=== PATIENT | male | born 1960 | race American Indian/Alaskan Native ===

== ENCOUNTER 2016-12-26 09:43 | Inpatient (IN) | payer OTHER ==
[2016-12-26 10:20] LABS: Bilirubin,Urine NEG (Negative); Blood,Urine NEG (Negative); Ketones,Urine 80 mg/dL (Negative); Leukocyte Esterase,Urine NEG (Negative); Mucus,Urine FEW /HPF; Nitrite,Urine NEG (Negative); Urobilinogen,Urine < 2.0 mg/dL (<2.0)
[2016-12-26 10:39] LABS: Basophils % (Auto) 0.8 % (0.0-1.8); Eosinophils % (Auto) 0.4 % (0.0-4.3); Hematocrit 47.3 % (35.5-45.6); Hemoglobin 15.7 gm/dl (11.8-15.2); Mean Corpuscular HGB Conc 33 % (32-34); Mean Corpuscular Hemoglobin 34 pg (28-32); Mean Corpuscular Volume 102 fl (84-94); Platelet Count 177 K/mm3 (140-440); Red Blood Count 4.66 M/mm3 (3.65-5.03); Red Cell Distribution Width 15.4 % (13.2-15.2); White Blood Count 9.3 K/mm3 (4.5-11.0)
[2016-12-26 11:07] LABS: BUN/Creatinine Ratio 16.15; Calcium 9.6 mg/dL (8.4-10.2); Chloride 85.1 mmol/L (98-107)
[2016-12-26 11:29] LABS: Potassium 5.9 mmol/L (3.6-5.0)
--- NOTE | 2016-12-26 11:38 | Emergency Department Report ---
ED General Adult HPI - General Chief complaint: Weakness Stated complaint: DIABETIC SYMPTOMS DIZZY Time Seen by Provider: 12/26/16 11:37 Source: patient Mode of arrival: Ambulatory Limitations: No Limitations - History of Present Illness Initial comments: The patient states that he was admitted to [facility] in [facility] for DKA about 2 weeks ago which is when he first found out he was a type I diabetic. He claims he was incarcerated at that time and transfer to the hospital. When he returned to present he stated he was not continued on his insulin and was released. He also claims that he was never given a prescription for penicillin. However and despite knowing that he was a type I diabetic for the last greater than one week he has not pursued getting a prescription for insulin. He states that he "felt fine for a while". However after some time he started to feel weak and developed the polys. Yesterday he began vomiting. He has not vomited recently (today). He states that he is no longer nauseated. -: week(s) Consistency: intermittent Improves with: none Worsens with: none Associated Symptoms: nausea/vomiting Treatments Prior to Arrival: none - Related Data Allergies Allergy/AdvReac Type Severity Reaction Status Date / Time Tetracyclines Allergy Swelling Verified 12/26/16 09:54 ED Review of Systems ROS: Stated complaint: DIABETIC SYMPTOMS DIZZY Other details as noted in HPI Constitutional: weakness. denies: chills, fever Eyes: denies: eye pain, eye discharge, vision change ENT: denies: ear pain, throat pain Respiratory: denies: cough, shortness of breath, wheezing Cardiovascular: denies: chest pain, palpitations Endocrine: increased hunger, increased thirst, increased urine Gastrointestinal: nausea, vomiting. denies: abdominal pain, diarrhea Genitourinary: denies: urgency, dysuria Musculoskeletal: denies: back pain, joint swelling, arthralgia Skin: denies: rash, lesions Neurological: denies: headache, weakness, paresthesias Psychiatric: denies: anxiety, depression Hematological/Lymphatic: denies: easy bleeding, easy bruising ED Past Medical Hx - Past Medical History Previous Medical History?: Yes Hx Diabetes: Yes - Surgical History Past Surgical History?: Yes Additional Surgical History: Bone marrow biopsy three weeks ago; no follow up for results - Social History Smoking Status: Current Every Day Smoker Substance Use Type: Alcohol ED Physical Exam - General Limitations: No Limitations General appearance: alert, in no apparent distress - Head Head exam: Present: atraumatic, normocephalic - Eye Eye exam: Present: normal appearance - ENT ENT exam: Present: mucous membranes dry (somewhat but not severely) - Neck Neck exam: Present: normal inspection. Absent: tenderness, meningismus - Respiratory Respiratory exam: Present: normal lung sounds bilaterally. Absent: respiratory distress - Cardiovascular Cardiovascular Exam: Present: regular rate, normal rhythm. Absent: systolic murmur, diastolic murmur, rubs, gallop - GI/Abdominal GI/Abdominal exam: Present: soft, normal bowel sounds. Absent: distended, tenderness, guarding, rebound, rigid - Rectal Rectal exam: Present: deferred - Extremities Exam Extremities exam: Present: normal inspection - Back Exam Back exam: Present: normal inspection - Neurological Exam Neurological exam: Present: alert, oriented X3, CN II-XII intact. Absent: motor sensory deficit - Psychiatric Psychiatric exam: Present: normal affect, normal mood - Skin Skin exam: Present: warm, dry, intact, normal color. Absent: rash ED Course Vital Signs 12/26/16 09:48 Temperature 98.0 F Pulse Rate 105 H Respiratory 16 Rate Blood Pressure 110/82 O2 Sat by Pulse 100 Oximetry - Reevaluation(s) Reevaluation #1: The patient looks remarkably better than his metabolic picture would generally suggests. He was given IV insulin first since the drip takes a while to obtain. He was given a bolus of 2 L normal saline. An insulin drip protocol was ordered. He was admitted to the hospitalist service by Dr. Guillen in stable condition. Of note is that the patient's sugar is not very elevated considering his acidosis and hyperkalemia. He denies using any sort of insulin or hypoglycemic agent. 12/26/16 14:01 ED Medical Decision Making - Lab Data Result diagrams: 12/26/16 10:17 12/26/16 11:45 Laboratory Results - last 24 hr 12/26/16 12/26/16 12/26/16 10:04 10:17 10:17 WBC 9.3 RBC 4.66 Hgb 15.7 H Hct 47.3 H MCV 102 H MCH 34 H MCHC 33 RDW 15.4 H Plt Count 177 Lymph % (Auto) 15.8 [facility] % (Auto) 8.6 H Eos % (Auto) 0.4 Baso % (Auto) 0.8 Lymph # 1.5 [facility] [place] [facility] # 0.8 Eos # 0.0 Baso # 0.1 Seg Neutrophils % 74.4 H Seg Neutrophils # 6.9 Sodium 124 L Potassium 5.9 H Chloride 85.1 L Carbon Dioxide 6 L* Anion Gap 39 BUN 21 H Creatinine 1.3 Estimated GFR 57 BUN/Creatinine Ratio 16.15 Glucose 419 H Calcium 9.6 Urine Color Yellow Urine Turbidity Clear Urine pH 5.0 Ur Specific [place] 1.024 Urine Protein 30 mg/dl Urine Glucose (UA) >=500 Urine Ketones 80 Urine Blood Neg Urine Nitrite Neg Urine Bilirubin Neg Urine Urobilinogen < 2.0 Ur Leukocyte Esterase Neg Urine WBC (Auto) 1.0 Urine RBC (Auto) 2.0 Urine Mucus Few Laboratory Results - last 24 hr 12/26/16 12/26/16 12/26/16 10:04 10:17 10:17 WBC 9.3 RBC 4.66 Hgb 15.7 H Hct 47.3 H MCV 102 H MCH 34 H MCHC 33 RDW 15.4 H Plt Count 177 Lymph % (Auto) 15.8 [facility] [place] % (Auto) 8.6 H Eos % (Auto) 0.4 Baso % (Auto) 0.8 Lymph # 1.5 [facility] [place] [facility] # 0.8 Eos # 0.0 Baso # 0.1 Seg Neutrophils % 74.4 H Seg Neutrophils # 6.9 Sodium 124 L Potassium 5.9 H Chloride 85.1 L Carbon Dioxide 6 L* Anion Gap 39 BUN 21 H Creatinine 1.3 Estimated GFR 57 BUN/Creatinine Ratio 16.15 Glucose 419 H POC Glucose Hemoglobin A1c Calcium 9.6 Urine Color Yellow Urine Turbidity Clear Urine pH 5.0 Ur Specific [place] 1.024 Urine Protein 30 mg/dl Urine Glucose (UA) >=500 Urine Ketones 80 Urine Blood Neg Urine Nitrite Neg Urine Bilirubin Neg Urine Urobilinogen < 2.0 Ur Leukocyte Esterase Neg Urine WBC (Auto) 1.0 Urine RBC (Auto) 2.0 Urine Mucus Few 12/26/16 12/26/16 10:17 13:59 WBC RBC Hgb Hct MCV MCH MCHC RDW Plt Count Lymph % (Auto) [facility] [place] [facility] % (Auto) Eos % (Auto) Baso % (Auto) Lymph # [facility] # Eos # Baso # Seg Neutrophils % Seg Neutrophils # Sodium Potassium Chloride Carbon Dioxide Anion Gap BUN Creatinine Estimated GFR BUN/Creatinine Ratio Glucose POC Glucose 363 H Hemoglobin A1c 9.8 H Calcium Urine Color Urine Turbidity Urine pH Ur Specific [place] Urine Protein Urine Glucose (UA) Urine Ketones Urine Blood Urine Nitrite Urine Bilirubin Urine Urobilinogen Ur Leukocyte Esterase Urine WBC (Auto) Urine RBC (Auto) Urine Mucus - EKG Data -: EKG Interpreted by Me EKG shows normal: sinus rhythm Rate: normal - EKG Data Interpretation: other - Radiology Data interpreted by me: Chest x-ray shows signs of COPD but no acute process Critical Care Time: Yes Critical care time in (mins) excluding proc time.: 45 Critical care attestation.: If time is entered above; I have spent that time in minutes in the direct care of this critically ill patient, excluding procedure time. ED Disposition Clinical Impression: Hyperkalemia DKA, type 1 Qualifiers: Diabetes mellitus complication detail: without coma Qualified Code(s): E10.10 - Type 1 diabetes mellitus with ketoacidosis without coma Disposition: DC09 OP ADMIT IP TO THIS HOSP Is pt being admited?: Yes Does the pt Need Aspirin: Yes Condition: Stable
[2016-12-26] MEDS ORDERED: NACL 0.9% 1000 ML 1,000 ML IV ONE ×3 (11:39→11:59)
[2016-12-26] MEDS ORDERED: D50W (25GM) IV PRN ×2 (11:39→11:59)
--- NOTE | 2016-12-26 11:58 | History and Physical Report ---
History of Present Illness Date of examination: 12/26/16 Chief complaint: Weakness and dizziness History of present illness: 56-year-old -[place] man with past medical history significant for diabetes mellitus that was recently diagnosed presented to the emergency department complaining of weakness and dizziness for the last 2 days. He is also complaining of headache. A month ago patient was diagnosed with type 1 diabetes mellitus in [place] while he was incarcerated and he was treated with insulin and discharged from the hospital reveals no history of prescription. Since discharge patient was complaining of polydipsia and polyuria but for the last 2 days the patient become very weak, dizzy and started to have headache since yesterday. Patient denied fever or chills, cough , chest pain, dysuria. Per the patient he said he was diagnosed with type 1 diabetes mellitus so he is 56 years old. REVIEW OF SYSTEMS: GENERAL: no weight change, + fatigue, no fever HEAD: no head ache EYES: no blurry vision, no acute visual loss EARS: no hearing loss, no discharge, no earache NOSE: no stuffiness, no sneezing, no discharge MOUTH, THROAT AND NECK: no bleeding gums, no sore throat, no swollen neck CARDIAC: no palpitations, no dyspnea on exertion, no orthopnea, no PND, no edema , no chest pain RESPIRATORY: no shortness of breath, no wheeze, no cough, no sputum, no hemoptysis, no asthma GI: no decreased appetite, no nausea, no vomiting, no dysphagia, no diarrhea, no constipation, no abdominal pain URINARY: no change in frequency, no urgency, no polyuria, no hematuria, no incontinence MUSCULOSKELETAL: no muscle weakness, no pain, no joint stiffness NEUROLOGIC: no loss of sensation/numbness, no tingling, no tremors, no weakness/ paralysis HEMATOLOGIC: no anemia, no easy bruising SKIN: no rashes ENDOCRINE: no heat/cold intolerance, + polyuria, + polydipsia, no thyroid problems, + diabetes PSYCHIATRIC: no anxiety, no depression, no suicidal ideations Past History Past Medical History: diabetes Past Surgical History: No surgical history Social history: smoking (Half PPD), alcohol abuse (6 PPD), full code. denies: prescription drug abuse, IV drug use Family history: no significant family history Medications and Allergies Allergies Allergy/AdvReac Type Severity Reaction Status Date / Time Tetracyclines Allergy Swelling Verified 12/26/16 09:54 Active Meds: Active Medications Dextrose (D50w (25gm)) 0 ml IV ONCE PRN PRN Reason: Hypoglycemia Sodium Chloride (Nacl 0.9% 1000 Ml) 1,000 mls @ 999 mls/hr IV BOLUS ONE Stop: 12/26/16 12:39 Insulin Human Regular 100 (units/ Sodium Chloride) 100 mls @ 1 mls/hr IV TITR ESTHER; 1 UNITS/HR PRN Reason: Protocol Exam - Physical Exam Narrative exam: Not in cardiopulmonary distress. The patient is cachectic. Vital signs as documented. Head exam is unremarkable. Dry tongue and buccal mucosa No scleral icterus . Neck is without jugular venous distension, thyromegaly, or carotid bruits. Lungs are clear to auscultation. Cardiac exam reveals regular rate and Rhythm. First and second heart sounds normal. No murmurs, rubs or gallops. Abdominal exam reveals normal bowel sounds, no masses, no organomegaly and no aortic enlargement. Extremities are nonedematous and both femoral and pedal pulses are normal. [employer]: Alert and oriented 3. No focal weakness. - Constitutional Vitals: Temp Pulse Resp BP Pulse Ox 98.0 F 105 H 16 110/82 100 12/26/16 09:48 12/26/16 09:48 12/26/16 09:48 12/26/16 09:48 12/26/16 09:48 Results - Labs CBC & Chem 7: 12/26/16 10:17 12/26/16 10:17 Labs: Laboratory Last Values WBC 9.3 K/mm3 (4.5-11.0) 12/26/16 10:17 RBC 4.66 M/mm3 (3.65-5.03) 12/26/16 10:17 Hgb 15.7 gm/dl (11.8-15.2) H 12/26/16 10:17 Hct 47.3 % (35.5-45.6) H 12/26/16 10:17 MCV 102 fl (84-94) H 12/26/16 10:17 MCH 34 pg (28-32) H 12/26/16 10:17 MCHC 33 % (32-34) 12/26/16 10:17 RDW 15.4 % (13.2-15.2) H 12/26/16 10:17 Plt Count 177 K/mm3 (140-440) 12/26/16 10:17 Lymph % (Auto) 15.8 % (13.4-35.0) 12/26/16 10:17 [place] % (Auto) 8.6 % (0.0-7.3) H 12/26/16 10:17 Eos % (Auto) 0.4 % (0.0-4.3) 12/26/16 10:17 Baso % (Auto) 0.8 % (0.0-1.8) 12/26/16 10:17 Lymph # 1.5 K/mm3 (1.2-5.4) 12/26/16 10:17 [place] # 0.8 K/mm3 (0.0-0.8) 12/26/16 10:17 Eos # 0.0 K/mm3 (0.0-0.4) 12/26/16 10:17 Baso # 0.1 K/mm3 (0.0-0.1) 12/26/16 10:17 Seg Neutrophils % 74.4 % (40.0-70.0) H 12/26/16 10:17 Seg Neutrophils # 6.9 K/mm3 (1.8-7.7) 12/26/16 10:17 Sodium 124 mmol/L (137-145) L 12/26/16 10:17 Potassium 5.9 mmol/L (3.6-5.0) H 12/26/16 10:17 Chloride 85.1 mmol/L (98-107) L 12/26/16 10:17 Carbon Dioxide 6 mmol/L (22-30) L* 12/26/16 10:17 Anion Gap 39 mmol/L 12/26/16 10:17 BUN 21 mg/dL (9-20) H 12/26/16 10:17 Creatinine 1.3 mg/dL (0.8-1.5) 12/26/16 10:17 Estimated GFR 57 ml/min 12/26/16 10:17 BUN/Creatinine Ratio 16.15 % 12/26/16 10:17 Glucose 419 mg/dL (75-100) H 12/26/16 10:17 Calcium 9.6 mg/dL (8.4-10.2) 12/26/16 10:17 Urine Color Yellow (Yellow) 12/26/16 10:04 Urine Turbidity Clear (Clear) 12/26/16 10:04 Urine pH 5.0 (5.0-7.0) 12/26/16 10:04 Ur Specific [place] 1.024 (1.003-1.030) 12/26/16 10:04 Urine Protein 30 mg/dl mg/dL (Negative) 12/26/16 10:04 Urine Glucose (UA) >=500 mg/dL (Negative) 12/26/16 10:04 Urine Ketones 80 mg/dL (Negative) 12/26/16 10:04 Urine Blood Neg (Negative) 12/26/16 10:04 Urine Nitrite Neg (Negative) 12/26/16 10:04 Urine Bilirubin Neg (Negative) 12/26/16 10:04 Urine Urobilinogen < 2.0 mg/dL (<2.0) 12/26/16 10:04 Ur Leukocyte Esterase Neg (Negative) 12/26/16 10:04 Urine WBC (Auto) 1.0 /HPF (0.0-6.0) 12/26/16 10:04 Urine RBC (Auto) 2.0 /HPF (0.0-6.0) 12/26/16 10:04 Urine Mucus Few /HPF 12/26/16 10:04 Assessment and Plan Assessment and plan: DKA Metabolic acidosis Uncontrolled diabetes Medication noncompliance Malnutrition - Patient will be treated according to DKA protocol - We will give sodium bicarbonate - Dietary consult - [employer] consulted DVT prophylaxis - Lovenox Disposition -Admit to ICU Advance Directives: Yes (Full code) VTE prophylaxis?: Chemical Plan of care discussed with patient/family: Yes
[2016-12-26] MEDS ORDERED: NovoLIN R 100 UNITS in NACL 0.9% 99 ML IV SCH (12:00)
--- NOTE | 2016-12-26 12:00 | XRay Report ---
AP CHEST: HISTORY: Hypertension The lungs are hyperinflated consistent with underlying emphysematous changes. No evidence for infiltrate, pleural effusion or pneumothorax. Normal heart and mediastinal structures. Normal bony thorax. IMPRESSION: Mild emphysematous changes.
[2016-12-26 14:18] LABS: INR 0.93 (0.87-1.13)
[2016-12-26 14:19] LABS: Partial Thromboplastin Time 30.3 Sec. (24.2-36.6)
[2016-12-26 14:25] LABS: Anion Gap 41 mmol/L; BUN/Creatinine Ratio 16.92; Blood Urea Nitrogen 22 mg/dL (9-20); Carbon Dioxide 12 mmol/L (22-30); Chloride 84.3 mmol/L (98-107); Glucose 414 mg/dL (75-100); Potassium 4.8 mmol/L (3.6-5.0); Sodium 132 mmol/L (137-145)
[2016-12-26] MEDS: NovoLIN R 100 UNITS in NACL 0.9% 99 ML IV SCH ×2 (14:30→23:29)
[2016-12-26 14:38] LABS: Creatine Kinase MB 1.6 ng/mL (0.0-4.0)
[2016-12-26] MEDS ORDERED: BABY ASPIRIN ONE (14:39)
[2016-12-26 14:40] LABS: Alanine Aminotransferase 11 units/L (7-56); Albumin 4.9 g/dL (3.9-5); Albumin/Globulin Ratio 1.3 %; Alkaline Phosphatase 133 units/L (35-129); Creatine Kinase 31 units/L (55-170); Total Protein 8.6 g/dL (6.3-8.2)
[2016-12-26 14:45] LABS: Bilirubin,Direct < 0.2 mg/dL (0-0.2)
[2016-12-26] MEDS: BABY ASPIRIN PO SCH (15:18)
[2016-12-26 16:20] LABS: Anion Gap 31 mmol/L; BUN/Creatinine Ratio 17.27; Blood Urea Nitrogen 19 mg/dL (9-20); Calcium 7.9 mg/dL (8.4-10.2); Carbon Dioxide 11 mmol/L (22-30); Chloride 97.6 mmol/L (98-107); Glucose 239 mg/dL (75-100); Potassium 4.5 mmol/L (3.6-5.0); Sodium 135 mmol/L (137-145)
[2016-12-26] MEDS ORDERED: TYLENOL PO PRN (18:16)
[2016-12-26] MEDS ORDERED: D5/0.45NS 1,000 ML IV SCH (19:00)
[2016-12-26 20:57] LABS: Anion Gap 23 mmol/L; BUN/Creatinine Ratio 18.75; Blood Urea Nitrogen 15 mg/dL (9-20); Calcium 8.1 mg/dL (8.4-10.2); Carbon Dioxide 14 mmol/L (22-30); Chloride 97.8 mmol/L (98-107); Glucose 181 mg/dL (75-100); Potassium 3.9 mmol/L (3.6-5.0); Sodium 131 mmol/L (137-145)
[2016-12-26] MEDS: D5W/0.45% NACL/KCL 20 MEQ 20 MEQ/1,000 ML BAG IV SCH (21:34)
[2016-12-27] MEDS: NovoLIN R 100 UNITS in NACL 0.9% 99 ML IV SCH ×2 (00:53→05:51)
--- NOTE | 2016-12-27 03:10 | Admit Criteria Form ---
Admission Criteria Documentation: HYPONATREMIA; HYPERNATREMIA; HYPOKALEMIA; HYPERKALEMIA; HYPOCALCEMIA; HYPERCALCEMIA Clinical Indications for Inpatient Care (Place 'X' for any and all applicable criteria): Ongoing inpatient care may be indicated for ANY ONE of the following [G](1)(2)(3 )(5): [ ]I. Hyponatremia with ANY ONE of the following: [ ]a) Sodium less than 130 mEq/L (mmol/L) (new) (6)(22) [ ]b) Sodium less than 135 mEq/L (mmol/L) with ANY ONE of the following: [ ]i) Severe medical etiology requiring inpatient management (eg, heart failure, hypovolemia) [ ]ii) Altered mental status [ ]iii) Seizures [ ]II. Hypernatremia with ANY ONE of the following: [ ]a) Sodium greater than 155 mEq/L (mmol/L) [ ]b) Sodium greater than 150 mEq/L (mmol/L) with ANY ONE of the following: [ ] i) Altered mental status [ ]ii) Seizures [ ]iii) Severe medical etiology (eg, hypovolemia, diabetes insipidus) [ ]iv) Severe weakness [ ]v) Severe medical etiology (eg, hemolysis, infection, drug overdose) [ ]III. Hypokalemia with ANY ONE of the following: [ ]a) Potassium less than 2.5 mEq/L (mmol/L) despite outpatient and emergency treatment [ ]b) Potassium less than 3.0 mEq/L (mmol/L) with ANY ONE of the following: [ ]i) Weakness [ ]ii) Cardiac abnormality (eg, arrhythmia, conduction disturbance) [ ]iii) Cardiac ischemia [ ]iv) Ileus [ ]v) Ongoing medical cause requiring inpatient management. ( e.g., acute renal wasting, SIADH) [ ]vi) Other severe symptoms [ X] IV. Hyperkalemia with ANY ONE of the following: [ ]a) Potassium greater than 6.5 mEq/L (mmol/L) [X ]b) Potassium greater than 5 mEq/L (mmol/L) with ANY ONE of the following: [ ]i) Severe ECG findings [H] [ ]ii) Acute worsening of renal failure (creatinine greater than 2.5 mg/dL (221 micromoles/L) or significant elevation for age and size) [X]iii) Severe weakness [ ]iv) Severe medical etiology (eg, hemolysis, infection, drug overdose) [ ] V. Hypocalcemia with ANY ONE of the following: [ ]a) Calcium less than 7 mg/dL (1.75 mmol/L) despite outpatient and emergency treatment(19) [ ]b) Calcium less than 8 mg/dL (2 mmol/L) with significant symptoms or findings; examples include: [ ]i) Cardiac abnormality (eg, arrhythmia or conduction disturbance) [ ]ii) Altered mental status [ ]iii) Seizures [ ]iv) Breathing difficulty [ ]v) Muscle spasms [ ]. Hypercalcemia with ANY ONE of the following: [ ]a) Calcium greater than 14 mg/dL (3.5 mmol/L) [ ]b) Calcium greater than 12 mg/dL (3 mmol/L) with ANY ONE of the following: [ ]i) Significant dehydration or hypovolemia as indicated by ANY ONE of the following(2): [ ]1. Clinically significant dehydration as indicated by ANY ONE of the following: [ ]A. Acute loss of weight from baseline (5% of body weight in adults, 9% in pediatric patients) [ ]B. Hemodynamic instability [ ]C. Acute renal failure [ ]D. Serum sodium greater than 150 mEq/L (mmol/L) [ ]2) Dehydration that is persistent indicated by ALL of the following: [ ]A. Oral rehydration therapy not tolerated or insufficient to adequately correct dehydration [ ]B. Appropriate intravenous treatment (eg, fluids ) does not readily correct dehydration ie, after 12 to 24 hours of treatment) [ ]ii) Significant symptoms or findings; examples include: [ ]1) Altered mental status [ ]2) Cardiac abnormality (eg, arrhythmia, conduction disturbance) [ ]3) Cardiac abnormality (eg, arrhythmia, conduction disturbance) The original [employer] content created by [employer] has been revised. The portions of the content which have been revised are identified through the use of italic text or in bold, and [facility] has neither reviewed nor approved the modified material. All other unmodified content is copyright [facility] Please see references footnoted in the original [facility] edition 2016 Admission Criteria Met: Yes
[2016-12-27 04:27] LABS: Hematocrit 36.9 % (35.5-45.6); Hemoglobin 12.7 gm/dl (11.8-15.2); Mean Corpuscular HGB Conc 34 % (32-34); Mean Corpuscular Hemoglobin 33 pg (28-32); Mean Corpuscular Volume 97 fl (84-94); Platelet Count 146 K/mm3 (140-440); Red Blood Count 3.83 M/mm3 (3.65-5.03); Red Cell Distribution Width 15.1 % (13.2-15.2); White Blood Count 6.9 K/mm3 (4.5-11.0)
[2016-12-27 04:45] LABS: Anion Gap 21 mmol/L; BUN/Creatinine Ratio 12.85; Blood Urea Nitrogen 9 mg/dL (9-20); Calcium 8.5 mg/dL (8.4-10.2); Carbon Dioxide 16 mmol/L (22-30); Chloride 97.4 mmol/L (98-107); Glucose 139 mg/dL (75-100); Potassium 3.8 mmol/L (3.6-5.0); Sodium 131 mmol/L (137-145)
[2016-12-27] MEDS: D5W/0.45% NACL/KCL 20 MEQ 20 MEQ/1,000 ML BAG IV SCH ×3 (06:28→19:00)
[2016-12-27 08:44] LABS: Anisocytosis Few; Basophils % (Manual) 0 % (0.0-1.8); Blastocytes % (Manual) 0 %; Diff Status Complete; Eosinophils % (Manual) 0 % (0.0-4.3); Hypochromasia Few; Large Platelets Few
[2016-12-27] MEDS ORDERED: NACL 0.9% 1000 ML 1,000 ML IV ONE (10:12)
[2016-12-27] MEDS: LOVENOX SUB-Q SCH (10:25)
[2016-12-27] MEDS: BABY ASPIRIN PO SCH (10:25)
[2016-12-27] MEDS ORDERED: MIRALAX 3350 PO PRN (11:55)
[2016-12-27 12:45] LABS: Anion Gap 22 mmol/L; Blood Urea Nitrogen 8 mg/dL (9-20); Calcium 8.8 mg/dL (8.4-10.2); Carbon Dioxide 17 mmol/L (22-30); Chloride 101.7 mmol/L (98-107); Glucose 132 mg/dL (75-100); Potassium 3.6 mmol/L (3.6-5.0); Sodium 137 mmol/L (137-145)
--- NOTE | 2016-12-27 14:19 | Consultation ---
History of Present Illness Consult date: 12/27/16 Requesting physician: JARROD MOE Reason for consult: other (DKA) History of present illness: PULMONARY/CCM CONSULT NOTE (Full dictation # [id number]) Please see dictated notes for full details Past History Past Medical History: diabetes Past Surgical History: No surgical history Social history: smoking (Half PPD), alcohol abuse (6 PPD), full code. denies: prescription drug abuse, IV drug use Family history: no significant family history Medications and Allergies Allergies Allergy/AdvReac Type Severity Reaction Status Date / Time Tetracyclines Allergy Swelling Verified 12/26/16 09:54 Home Medications Medication Instructions Recorded Confirmed Last Taken Type No Known Home Medications [No 12/26/16 12/26/16 Unknown History Reported Home Medications] Active Meds: Active Medications Acetaminophen (Tylenol) 650 mg PO Q6H PRN PRN Reason: Pain, Mild (1-3) Aspirin (Baby Aspirin) 81 mg PO QDAY ESTHER Last Admin: 12/27/16 10:25 Dose: 81 mg Dextrose (D50w (25gm)) 0 ml IV ONCE PRN PRN Reason: Hypoglycemia Dextrose (D50w (25gm)) 0 ml IV PRN PRN PRN Reason: Hypoglycemia Docusate Sodium (Colace) 100 mg PO BID ESTHER Enoxaparin Sodium (Lovenox) 40 mg SUB-Q QDAY ESTHER Last Admin: 12/27/16 10:25 Dose: 40 mg Insulin Human Regular 100 (units/ Sodium Chloride) 100 mls @ 1 mls/hr IV TITR ESTHER; 1 UNITS/HR PRN Reason: Protocol Last Titration: 12/27/16 14:12 Dose: 5 units/hr, 5 mls/hr Potassium Chloride/Dextrose/Sod Cl (D5w/0.45% Nacl/Kcl 20 Meq) 20 meq in 1,000 mls @ 125 mls/hr IV DIRECT ESTHER Last Admin: 12/27/16 10:24 Dose: 125 mls/hr Insulin Human Regular 100 (units/ Sodium Chloride) 100 mls @ 1 mls/hr IV TITR ESTHER; 1 UNITS/HR PRN Reason: Protocol Dextrose/Sodium Chloride (D5/0.45ns) 1,000 mls @ 150 mls/hr IV DIRECT ESTHER Last Admin: 12/26/16 18:40 Dose: 150 mls/hr Polyethylene Glycol (Miralax 3350) 17 gm PO QDAY PRN PRN Reason: Constipation Sodium Bicarbonate (Sodium Bicarbonate) 650 mg PO BID ESTHER Physical Examination Vital signs: Vital Signs Temp Pulse Resp BP Pulse Ox 98.0 F 105 H 16 110/82 100 12/26/16 09:48 12/26/16 09:48 12/26/16 09:48 12/26/16 09:48 12/26/16 09:48 Results - Laboratory Findings CBC and BMP: 12/27/16 04:11 12/27/16 12:00 PT/INR, D-dimer PT 12.4 Sec. (12.2-14.9) 12/26/16 13:22 INR 0.93 (0.87-1.13) 12/26/16 13:22 Abnormal lab findings: Abnormal Labs 12/26/16 12/26/16 12/26/16 13:59 15:27 15:50 MCV MCH Monocytes % (Manual) Monocytes # (Manual) Sodium 135 L Chloride 97.6 L Carbon Dioxide 11 L BUN Creatinine Glucose 239 H POC Glucose 363 H 301 H Calcium 7.9 L D 12/26/16 12/26/16 12/26/16 16:40 17:34 18:43 MCV MCH Monocytes % (Manual) Monocytes # (Manual) Sodium Chloride Carbon Dioxide BUN Creatinine Glucose POC Glucose 188 H 176 H 196 H Calcium 12/26/16 12/26/16 12/26/16 19:50 20:21 20:58 MCV MCH Monocytes % (Manual) Monocytes # (Manual) Sodium 131 L Chloride 97.8 L Carbon Dioxide 14 L BUN Creatinine Glucose 181 H POC Glucose 187 H 169 H Calcium 8.1 L 12/26/16 12/26/16 12/27/16 22:10 23:24 00:45 MCV MCH Monocytes % (Manual) Monocytes # (Manual) Sodium Chloride Carbon Dioxide BUN Creatinine Glucose POC Glucose 146 H 153 H 136 H Calcium 12/27/16 12/27/16 12/27/16 02:00 04:11 04:11 MCV 97 H MCH 33 H Monocytes % (Manual) 15.0 H Monocytes # (Manual) 1.0 H Sodium 131 L Chloride 97.4 L Carbon Dioxide 16 L BUN Creatinine 0.7 L Glucose 139 H POC Glucose 138 H Calcium 12/27/16 12/27/16 12/27/16 05:48 07:21 08:47 MCV MCH Monocytes % (Manual) Monocytes # (Manual) Sodium Chloride Carbon Dioxide BUN Creatinine Glucose POC Glucose 209 H 189 H 176 H Calcium 12/27/16 12/27/16 12/27/16 09:55 12:00 12:06 MCV MCH Monocytes % (Manual) Monocytes # (Manual) Sodium Chloride Carbon Dioxide 17 L BUN 8 L Creatinine 0.5 L Glucose 132 H POC Glucose 117 H 121 H Calcium 12/27/16 12/27/16 13:16 13:52 MCV MCH Monocytes % (Manual) Monocytes # (Manual) Sodium Chloride Carbon Dioxide BUN Creatinine Glucose POC Glucose 218 H 218 H Calcium
[2016-12-27] MEDS: SODIUM BICARBONATE PO SCH ×2 (15:05→22:09)
[2016-12-27 16:47] LABS: Anion Gap 19 mmol/L; Blood Urea Nitrogen 6 mg/dL (9-20); Calcium 8.8 mg/dL (8.4-10.2); Carbon Dioxide 16 mmol/L (22-30); Chloride 102.6 mmol/L (98-107); Glucose 123 mg/dL (75-100); Potassium 3.8 mmol/L (3.6-5.0); Sodium 134 mmol/L (137-145)
[2016-12-27 19:39] LABS: Bilirubin,Urine NEG (Negative); Blood,Urine NEG (Negative); Ketones,Urine TR mg/dL (Negative); Leukocyte Esterase,Urine NEG (Negative); Nitrite,Urine NEG (Negative); Protein,Urine <15 mg/dL mg/dL (Negative); Urobilinogen,Urine < 2.0 mg/dL (<2.0)
[2016-12-27 19:42] LABS: RBC,Urine < 1.0 /HPF (0.0-6.0); WBC,Urine < 1.0 /HPF (0.0-6.0)
[2016-12-27 20:31] LABS: Anion Gap 22 mmol/L; Blood Urea Nitrogen 6 mg/dL (9-20); Calcium 8.9 mg/dL (8.4-10.2); Carbon Dioxide 15 mmol/L (22-30); Chloride 101.9 mmol/L (98-107); Glucose 118 mg/dL (75-100); Potassium 4.4 mmol/L (3.6-5.0); Sodium 134 mmol/L (137-145)
[2016-12-27] MEDS: COLACE PO SCH (22:10)
[2016-12-27] MEDS ORDERED: PEPCID ONE (22:12)
--- NOTE | 2016-12-27 23:34 | Progress Note ---
Assessment and Plan Assessment and plan: 56-year-old -[place] man with past medical history significant for diabetes mellitus that was recently diagnosed presented to the emergency department complaining of weakness and dizziness for the last 2 days. He is also complaining of headache. A month ago patient was diagnosed with type 1 diabetes mellitus in [place] while he was incarcerated and he was treated with insulin and discharged from the hospital reveals no history of prescription. Since discharge patient was complaining of polydipsia and polyuria but for the last 2 days the patient become very weak, dizzy and started to have headache since yesterday. Patient denied fever or chills, cough , chest pain, dysuria. Per the patient he said he was diagnosed with type 1 diabetes mellitus so he is 56 years old. DKA Metabolic acidosis Uncontrolled diabetes Medication noncompliance Malnutrition Plan: Continue DKA protocol Start on PO Sodium Bicarbonate Dietary Consult for education. SERIAL LABS Discussed in detail, Diabetic management with patient and daughter Transfer to Medical floor once anion Gap closes. DVT prophylaxis The high probability of a clinically significant, sudden or life threatening deterioration of the [endocrine] system(s) required my full and direct attention , intervention and personal management. The aggregate critical care time was [35 ] minutes. This time is in addition to time spent performing reported procedures but includes the following [x] Data Review and interpretation [x] Patient assessment and monitoring of vital signs [x] Documentation [x] Medication orders and management History Interval history: Patient seen and examined in no acute distress, requesting food to eat. Hospitalist Physical - Physical exam Narrative exam: VITAL SIGNS: Reviewed. GENERAL: The patient appeared Normally developed. Vital signs as documented. HEAD: No signs of head trauma. Markedly cachectic with temporal wasting EYES: Pupils are equal. Extraocular motions intact. EARS: Hearing grossly intact. MOUTH: Oropharynx is normal. NECK: No adenopathy, no JVD. CHEST: Chest with clear breath sounds bilaterally. No wheezes, rales, or rhonchi. CARDIAC: Regular rate and rhythm. S1 and S2, without murmurs, gallops, or rubs. VASCULAR: No Edema. Peripheral pulses normal and equal in all extremities. ABDOMEN: Soft, without detectable tenderness. No sign of distention. No rebound or guarding, and no masses palpated. Bowel Sounds normal. MUSCULOSKELETAL: Good range of motion of all major joints. Extremities without clubbing, cyanosis or edema. NEUROLOGIC EXAM: Alert and oriented x 3. No focal sensory or strength deficits. Speech normal. Follows commands. PSYCHIATRIC: Mood normal. SKIN: No rash or lesions. - Constitutional Vitals: Temp Pulse Resp BP Pulse Ox 98.4 F 64 21 123/86 100 12/27/16 15:43 12/27/16 21:20 12/27/16 21:20 12/27/16 21:20 12/27/16 21:20 Results - Labs CBC & Chem 7: 12/28/16 04:14 12/28/16 04:14 Labs: Laboratory Last Values WBC 6.9 K/mm3 (4.5-11.0) 12/27/16 04:11 RBC 3.83 M/mm3 (3.65-5.03) 12/27/16 04:11 Hgb 12.7 gm/dl (11.8-15.2) D 12/27/16 04:11 Hct 36.9 % (35.5-45.6) D 12/27/16 04:11 MCV 97 fl (84-94) H 12/27/16 04:11 MCH 33 pg (28-32) H 12/27/16 04:11 MCHC 34 % (32-34) 12/27/16 04:11 RDW 15.1 % (13.2-15.2) 12/27/16 04:11 Plt Count 146 K/mm3 (140-440) 12/27/16 04:11 Lymph % (Auto) 15.8 % (13.4-35.0) 12/26/16 10:17 Colbert % (Auto) [employer] 12/27/16 04:11 Eos % (Auto) 0.4 % (0.0-4.3) 12/26/16 10:17 Baso % (Auto) 0.8 % (0.0-1.8) 12/26/16 10:17 Lymph # 1.5 K/mm3 (1.2-5.4) 12/26/16 10:17 Colbert # 0.8 K/mm3 (0.0-0.8) 12/26/16 10:17 Eos # 0.0 K/mm3 (0.0-0.4) 12/26/16 10:17 Baso # 0.1 K/mm3 (0.0-0.1) 12/26/16 10:17 Add Manual Diff Complete 12/27/16 04:11 Total Counted 100 12/27/16 04:11 Seg Neutrophils % 74.4 % (40.0-70.0) H 12/26/16 10:17 Seg Neuts % (Manual) 55.0 % (40.0-70.0) 12/27/16 04:11 Band Neutrophils % 8.0 % 12/27/16 04:11 Lymphocytes % (Manual) 22.0 % (13.4-35.0) 12/27/16 04:11 Reactive Lymphs % (Man) 0 % 12/27/16 04:11 Monocytes % (Manual) 15.0 % (0.0-7.3) H 12/27/16 04:11 Eosinophils % (Manual) 0 % (0.0-4.3) 12/27/16 04:11 Basophils % (Manual) 0 % (0.0-1.8) 12/27/16 04:11 Metamyelocytes % 0 % 12/27/16 04:11 Myelocytes % 0 % 12/27/16 04:11 Promyelocytes % 0 % 12/27/16 04:11 Blast Cells % 0 % 12/27/16 04:11 Nucleated RBC % Not Reportable 12/27/16 04:11 Seg Neutrophils # 6.9 K/mm3 (1.8-7.7) 12/26/16 10:17 Seg Neutrophils # Man 3.8 K/mm3 (1.8-7.7) 12/27/16 04:11 Band Neutrophils # 0.6 K/mm3 12/27/16 04:11 Lymphocytes # (Manual) 1.5 K/mm3 (1.2-5.4) 12/27/16 04:11 Abs React Lymphs (Man) 0.0 K/mm3 12/27/16 04:11 Monocytes # (Manual) 1.0 K/mm3 (0.0-0.8) H 12/27/16 04:11 Eosinophils # (Manual) 0.0 K/mm3 (0.0-0.4) 12/27/16 04:11 Basophils # (Manual) 0.0 K/mm3 (0.0-0.1) 12/27/16 04:11 Metamyelocytes # 0.0 K/mm3 12/27/16 04:11 Myelocytes # 0.0 K/mm3 12/27/16 04:11 Promyelocytes # 0.0 K/mm3 12/27/16 04:11 Blast Cells # 0.0 K/mm3 12/27/16 04:11 WBC Morphology Not Reportable 12/27/16 04:11 Hypersegmented Neuts Not Reportable 12/27/16 04:11 Hyposegmented Neuts Not Reportable 12/27/16 04:11 Hypogranular Neuts Not Reportable 12/27/16 04:11 Smudge Cells Not Reportable 12/27/16 04:11 Toxic Granulation Not Reportable 12/27/16 04:11 Toxic Vacuolation Not Reportable 12/27/16 04:11 Dohle Bodies Not Reportable 12/27/16 04:11 Pelger-Huet Anomaly Not Reportable 12/27/16 04:11 Chinyere Rods Not Reportable 12/27/16 04:11 Platelet Estimate Appears normal 12/27/16 04:11 Clumped Platelets Not Reportable 12/27/16 04:11 Plt Clumps, EDTA Not Reportable 12/27/16 04:11 Large Platelets Few 12/27/16 04:11 Giant Platelets Not Reportable 12/27/16 04:11 Platelet Satelliting Not Reportable 12/27/16 04:11 Plt Morphology Comment Not Reportable 12/27/16 04:11 RBC Morphology Not Reportable 12/27/16 04:11 Dimorphic RBCs Not Reportable 12/27/16 04:11 Polychromasia Not Reportable 12/27/16 04:11 Hypochromasia Few 12/27/16 04:11 Poikilocytosis Not Reportable 12/27/16 04:11 Anisocytosis Few 12/27/16 04:11 Microcytosis Not Reportable 12/27/16 04:11 Macrocytosis Not Reportable 12/27/16 04:11 Spherocytes Not Reportable 12/27/16 04:11 Pappenheimer Bodies Not Reportable 12/27/16 04:11 Sickle Cells Not Reportable 12/27/16 04:11 Target Cells Not Reportable 12/27/16 04:11 Tear Drop Cells Not Reportable 12/27/16 04:11 Ovalocytes Not Reportable 12/27/16 04:11 Helmet Cells Not Reportable 12/27/16 04:11 [place] Bodies Not Reportable 12/27/16 04:11 [place] Rings Not Reportable 12/27/16 04:11 Fredrick Cells Not Reportable 12/27/16 04:11 Bite Cells Not Reportable 12/27/16 04:11 Crenated Cell Not Reportable 12/27/16 04:11 Elliptocytes Not Reportable 12/27/16 04:11 Acanthocytes (Spur) Not Reportable 12/27/16 04:11 Rouleaux Not Reportable 12/27/16 04:11 Hemoglobin C Crystals Not Reportable 12/27/16 04:11 Schistocytes Not Reportable 12/27/16 04:11 Malaria parasites Not Reportable 12/27/16 04:11 Jerry Bodies Not Reportable 12/27/16 04:11 Hem Pathologist Commnt No 12/27/16 04:11 PT 12.4 Sec. (12.2-14.9) 12/26/16 13:22 INR 0.93 (0.87-1.13) 12/26/16 13:22 APTT 30.3 Sec. (24.2-36.6) 12/26/16 13:22 Sodium 134 mmol/L (137-145) L 12/27/16 19:54 Potassium 4.4 mmol/L (3.6-5.0) 12/27/16 19:54 Chloride 101.9 mmol/L (98-107) 12/27/16 19:54 Carbon Dioxide 15 mmol/L (22-30) L 12/27/16 19:54 Anion Gap 22 mmol/L 12/27/16 19:54 BUN 6 mg/dL (9-20) L 12/27/16 19:54 Creatinine 0.5 mg/dL (0.8-1.5) L 12/27/16 19:54 Estimated GFR > 60 ml/min 12/27/16 19:54 BUN/Creatinine Ratio 12.00 % 12/27/16 19:54 Glucose 118 mg/dL (75-100) H 12/27/16 19:54 POC Glucose 181 (70-105) H 12/27/16 21:01 Hemoglobin A1c 9.8 % (4-6) H 12/26/16 10:17 Calcium 8.9 mg/dL (8.4-10.2) 12/27/16 19:54 Total Bilirubin 0.50 mg/dL (0.1-1.2) 12/26/16 13:22 Direct Bilirubin < 0.2 mg/dL (0-0.2) 12/26/16 13:22 AST 13 units/L (5-40) 12/26/16 13:22 ALT 11 units/L (7-56) 12/26/16 13:22 Alkaline Phosphatase 133 units/L (35-129) H 12/26/16 13:22 Total Creatine Kinase 31 units/L (55-170) L 12/26/16 13:22 CK-MB (CK-2) 1.6 ng/mL (0.0-4.0) 12/26/16 13:22 CK-MB (CK-2) Rel Index 5.1 (0-4) H 12/26/16 13:22 Troponin T < 0.010 ng/mL (0.00-0.029) 12/26/16 13:22 NT-Pro-B Natriuret Pep 41.61 pg/mL (0-900) 12/26/16 13:22 Total Protein 8.6 g/dL (6.3-8.2) H 12/26/16 13:22 Albumin 4.9 g/dL (3.9-5) 12/26/16 13:22 Albumin/Globulin Ratio 1.3 % 12/26/16 13:22 Urine Color Straw (Yellow) 12/27/16 19:00 Urine Turbidity Clear (Clear) 12/27/16 19:00 Urine pH 6.0 (5.0-7.0) 12/27/16 19:00 Ur Specific [place] 1.002 (1.003-1.030) L 12/27/16 19:00 Urine Protein <15 mg/dl mg/dL (Negative) 12/27/16 19:00 Urine Glucose (UA) 50 mg/dL (Negative) 12/27/16 19:00 Urine Ketones Tr mg/dL (Negative) 12/27/16 19:00 Urine Blood Neg (Negative) 12/27/16 19:00 Urine Nitrite Neg (Negative) 12/27/16 19:00 Urine Bilirubin Neg (Negative) 12/27/16 19:00 Urine Urobilinogen < 2.0 mg/dL (<2.0) 12/27/16 19:00 Ur Leukocyte Esterase Neg (Negative) 12/27/16 19:00 Urine WBC (Auto) < 1.0 /HPF (0.0-6.0) 12/27/16 19:00 Urine RBC (Auto) < 1.0 /HPF (0.0-6.0) 12/27/16 19:00 Urine Mucus Few /HPF 12/26/16 10:04
[2016-12-28] MEDS: NovoLIN R 100 UNITS in NACL 0.9% 99 ML IV SCH (00:09)
[2016-12-28] MEDS: D5W/0.45% NACL/KCL 20 MEQ 20 MEQ/1,000 ML BAG IV SCH (02:25)
[2016-12-28 05:19] LABS: Hematocrit 33.9 % (35.5-45.6); Hemoglobin 11.6 gm/dl (11.8-15.2); Mean Corpuscular HGB Conc 34 % (32-34); Mean Corpuscular Hemoglobin 34 pg (28-32); Mean Corpuscular Volume 99 fl (84-94); Platelet Count 145 K/mm3 (140-440); Red Blood Count 3.44 M/mm3 (3.65-5.03); White Blood Count 6.5 K/mm3 (4.5-11.0)
--- NOTE | 2016-12-28 05:29 | Consultation ---
CONSULTING PHYSICIAN: Quinn Guillen MD REASON FOR CONSULTATION: Diabetic ketoacidosis, need for IV insulin therapy and ICU observation. CHIEF COMPLAINT AND HISTORY OF PRESENT ILLNESS: The patient is a 56-year-old -Portuguese male with past medical history according to him significant for a diagnosis of diabetes, which he got about 2 weeks ago in [place]. He states that he had been incarcerated at that time, transferred to the hospital. He was ultimately released and he had not been continued on his insulin. He started feeling funny again, started having nausea, vomiting, feeling weak. He developed polydipsia and polyuria, came into the Emergency Room, was found to be in DKA and started on IV insulin drip. When I stopped by to see him in the intensive care unit, he was resting peacefully in bed, hungry and wanting to eat something, but remained on the IV insulin drip. He denied any history of chest pains. He denied any palpitations prior to this presentation. He denies any history of known heart disease. He admits to 10+ pack year tobacco smoking history. This really is as much of the history of presentation as I have. PAST MEDICAL HISTORY: 1. Diabetes. 2. Tobacco use disorder. PAST SURGICAL HISTORY: He has had a bone marrow biopsy 3 weeks ago. He is unclear what for. MEDICATIONS: He was on at the time I stopped by to see him, according to the medication administration record included the following: Tylenol 650 mg p.o. q. 6. hours p.r.n. mild pain, aspirin 81 mg p.o. daily. He was on D5 half NS drip and that was being adjusted according to the DKA protocol, Docusate sodium 100 mg p.o. b.i.d., Lovenox 40 mg subcutaneous every day, insulin drip was going at 4 units per hour. He is also on MiraLax p.r.n. and is getting sodium bicarbonate 650 mg p.o. b.i.d. ALLERGIES: TETRACYCLINE. Nature of this allergy is unknown. DIET: Thin gentleman, states he has lost a few pounds in the preceding few weeks to months. FAMILY AND SOCIAL HISTORY: Lives in the community, was recently incarcerated though. Denies current alcohol or illicit drug use or abuse, admits to smoking about half a pack a day. REVIEW OF SYSTEMS: No loss of consciousness. No new onset seizures. No new onset focal weakness. No gross hematochezia or melena. No gross hematuria or dysuria. He has had emesis. No hematemesis, no hemoptysis. Denies palpitations. Complete 13 system review of systems obtained. Pertinent positives and/or negatives as in body of history above, otherwise they are noncontributory. PHYSICAL EXAMINATION: VITAL SIGNS: At presentation in the Emergency Room, he was afebrile, temperature 98.0 Fahrenheit with a pulse of 105, respiratory rate of 16, blood pressure 110/82, oxygen sats 100% in spite oxygen concentration was not recorded. HEAD, EYES, EARS, NOSE AND THROAT: Pupils are equal, round, about 3-4 mm, reactive to light. Extraocular muscle movements appeared intact. NECK: Grossly, there were no palpable lymph nodes in the supraclavicular or submandibular lymph node chains. LUNGS: Auscultation of both lung philippe significant for diminished bilateral breath sounds, prolonged expiratory phase. No wheezing. CARDIOVASCULAR: Heart sounds 1 and 2 are heard. They were regular in rate and rhythm at the time of my evaluation. ABDOMEN: Soft, flat. Bowel sounds positive, nontender. EXTREMITIES: Without overt digital clubbing, cyanosis, or pedal edema. NEUROLOGIC: The exam was grossly nonfocal. LABORATORY DATA: From my review are as follows: White cell count 9300, hemoglobin 15.7, hematocrit 47.3, platelet count 177, this was at admission. INR 0.93. Serum sodium was 132, potassium 4.8, chloride 84, bicarbonate 12, BUN 22, creatinine 1.3, glucose was 414, hemoglobin A1c was 9.8. Liver function tests really essentially within normal limits. Troponin within normal limits. BNP within normal limits. Urinalysis was unremarkable. Microbiology studies, none. Radiographic studies have been reviewed. I have also reviewed the radiologist's interpretation. Chest x-ray essentially shows mild emphysematous changes, mild to moderate. He does have significant flattening of the right hemidiaphragm, evidence of hyperinflation, perhaps even some mild enlargement of his main pulmonary artery trunks. ASSESSMENT AND PLAN: We have a middle-aged gentleman in with new onset diabetes, on IV insulin therapy appropriately. His anion gap is slowly closing. I have strongly cautioned him, especially in the setting of diabetes, to quit tobacco abuse and he agrees to give it a shot. Otherwise, he is appropriately on DVT prophylaxis. I will be putting him on GI prophylaxis and he will continue on the DKA protocol. Flu and pneumonia vaccination will be per protocol. Thank you very much for the consult Dr. Guillen. We will follow along. We will make further recommendations as picture progresses/becomes clearer. Hopefully, he can soon be transitioned out of the Intensive Care Unit. JOB# [id number] DOUGLAS/LON
[2016-12-28 05:40] LABS: Anion Gap 16 mmol/L; Blood Urea Nitrogen 4 mg/dL (9-20); Calcium 8.7 mg/dL (8.4-10.2); Carbon Dioxide 21 mmol/L (22-30); Chloride 102.4 mmol/L (98-107); Glucose 185 mg/dL (75-100); Potassium 3.5 mmol/L (3.6-5.0); Sodium 136 mmol/L (137-145)
[2016-12-28] MEDS ORDERED: K-DUR PO ONE ×2 (08:24→13:54)
[2016-12-28] MEDS: LOVENOX SUB-Q SCH (09:55)
[2016-12-28] MEDS: PEPCID PO SCH ×2 (09:56→21:43)
[2016-12-28] MEDS: SODIUM BICARBONATE PO SCH ×2 (09:56→21:43)
[2016-12-28] MEDS: BABY ASPIRIN PO SCH (09:56)
[2016-12-28] MEDS: COLACE PO SCH ×2 (09:57→21:43)
--- NOTE | 2016-12-28 11:08 | Progress Note ---
Subjective Date of service: 12/28/16 Principal diagnosis: DKA Interval history: Seen and examined at bedside; 24 hour events reviewed; nursing and respiratory care staff consulted; no adverse overnight events reported to me; Objective Vital Signs - 12hr 12/27/16 12/27/16 12/27/16 23:10 23:20 23:30 Temperature Pulse Rate 68 71 Pulse Rate [ Apical] Pulse Rate [ From Monitor] Respiratory 15 13 Rate Blood Pressure 106/70 106/70 106/70 O2 Sat by Pulse 100 100 100 Oximetry 12/27/16 12/27/16 12/27/16 23:40 23:42 23:50 Temperature Pulse Rate 62 65 64 Pulse Rate [ Apical] Pulse Rate [ From Monitor] Respiratory 19 19 18 Rate Blood Pressure 106/70 106/70 106/70 O2 Sat by Pulse 100 100 100 Oximetry 12/28/16 12/28/16 12/28/16 00:00 00:10 00:20 Temperature 98.3 F Pulse Rate 64 64 69 Pulse Rate [ Apical] Pulse Rate [ From Monitor] Respiratory 18 16 16 Rate Blood Pressure 98/74 98/74 98/74 O2 Sat by Pulse 100 100 100 Oximetry 12/28/16 12/28/16 12/28/16 00:30 00:40 00:50 Temperature Pulse Rate 60 62 66 Pulse Rate [ Apical] Pulse Rate [ From Monitor] Respiratory 14 15 18 Rate Blood Pressure 98/74 98/74 98/74 O2 Sat by Pulse 100 100 100 Oximetry 12/28/16 12/28/16 12/28/16 01:00 01:10 01:20 Temperature Pulse Rate 68 82 69 Pulse Rate [ Apical] Pulse Rate [ From Monitor] Respiratory 16 12 19 Rate Blood Pressure 117/78 117/78 117/78 O2 Sat by Pulse 100 100 100 Oximetry 12/28/16 12/28/16 12/28/16 01:30 01:40 01:50 Temperature Pulse Rate 70 68 72 Pulse Rate [ Apical] Pulse Rate [ From Monitor] Respiratory 16 18 16 Rate Blood Pressure 117/78 98/74 98/74 O2 Sat by Pulse 100 99 100 Oximetry 12/28/16 12/28/16 12/28/16 02:00 02:10 02:20 Temperature Pulse Rate 76 65 63 Pulse Rate [ Apical] Pulse Rate [ From Monitor] Respiratory 17 18 17 Rate Blood Pressure 110/59 110/59 110/59 O2 Sat by Pulse 100 100 99 Oximetry 12/28/16 12/28/16 12/28/16 02:30 02:40 02:50 Temperature Pulse Rate 66 60 61 Pulse Rate [ Apical] Pulse Rate [ From Monitor] Respiratory 14 14 16 Rate Blood Pressure 110/59 110/59 110/59 O2 Sat by Pulse 99 100 98 Oximetry 12/28/16 12/28/16 12/28/16 03:00 03:10 03:20 Temperature Pulse Rate 72 63 71 Pulse Rate [ Apical] Pulse Rate [ From Monitor] Respiratory 16 16 16 Rate Blood Pressure 109/74 109/74 109/74 O2 Sat by Pulse 100 100 100 Oximetry 12/28/16 12/28/16 12/28/16 03:30 03:40 03:50 Temperature Pulse Rate 71 64 71 Pulse Rate [ Apical] Pulse Rate [ From Monitor] Respiratory 14 14 16 Rate Blood Pressure 109/74 109/74 109/74 O2 Sat by Pulse 100 100 100 Oximetry 12/28/16 12/28/16 12/28/16 04:00 04:10 04:20 Temperature 97.4 F L Pulse Rate 72 70 67 Pulse Rate [ Apical] Pulse Rate [ From Monitor] Respiratory 19 15 19 Rate Blood Pressure 114/70 114/70 114/70 O2 Sat by Pulse 100 100 100 Oximetry 12/28/16 12/28/16 12/28/16 04:30 04:40 04:50 Temperature Pulse Rate 67 70 66 Pulse Rate [ Apical] Pulse Rate [ From Monitor] Respiratory 16 19 18 Rate Blood Pressure 114/70 114/70 114/70 O2 Sat by Pulse 100 100 99 Oximetry 12/28/16 12/28/16 12/28/16 05:00 05:10 05:20 Temperature Pulse Rate 68 63 61 Pulse Rate [ Apical] Pulse Rate [ From Monitor] Respiratory 13 15 14 Rate Blood Pressure 118/76 118/76 118/76 O2 Sat by Pulse 100 100 100 Oximetry 12/28/16 12/28/16 12/28/16 05:30 05:40 05:50 Temperature Pulse Rate 63 64 67 Pulse Rate [ Apical] Pulse Rate [ From Monitor] Respiratory 21 15 15 Rate Blood Pressure 118/76 114/70 114/70 O2 Sat by Pulse 100 100 100 Oximetry 12/28/16 12/28/16 12/28/16 06:00 06:10 06:20 Temperature Pulse Rate 80 71 69 Pulse Rate [ Apical] Pulse Rate [ From Monitor] Respiratory 12 20 15 Rate Blood Pressure 114/70 128/88 128/88 O2 Sat by Pulse 100 99 100 Oximetry 12/28/16 12/28/16 12/28/16 06:30 06:40 06:50 Temperature Pulse Rate 68 72 67 Pulse Rate [ Apical] Pulse Rate [ From Monitor] Respiratory 16 15 14 Rate Blood Pressure 128/88 128/88 128/88 O2 Sat by Pulse 99 100 100 Oximetry 12/28/16 12/28/16 12/28/16 07:00 07:10 07:20 Temperature 98.1 F Pulse Rate 70 97 H 74 Pulse Rate [ 72 Apical] Pulse Rate [ 72 From Monitor] Respiratory 13 31 H 17 Rate Blood Pressure 109/75 109/75 109/75 O2 Sat by Pulse 99 100 100 Oximetry 12/28/16 12/28/16 12/28/16 07:30 07:40 07:50 Temperature Pulse Rate 83 67 66 Pulse Rate [ Apical] Pulse Rate [ From Monitor] Respiratory 11 L 15 14 Rate Blood Pressure 109/75 109/75 109/75 O2 Sat by Pulse 100 99 99 Oximetry 12/28/16 12/28/16 12/28/16 08:00 08:10 08:20 Temperature 98.1 F Pulse Rate 64 78 66 Pulse Rate [ Apical] Pulse Rate [ From Monitor] Respiratory 15 14 15 Rate Blood Pressure 113/75 113/75 113/75 O2 Sat by Pulse 99 100 100 Oximetry 12/28/16 12/28/16 12/28/16 08:30 08:40 08:50 Temperature Pulse Rate 77 83 83 Pulse Rate [ Apical] Pulse Rate [ From Monitor] Respiratory 13 13 19 Rate Blood Pressure 113/75 113/75 113/75 O2 Sat by Pulse 100 100 99 Oximetry 12/28/16 12/28/16 12/28/16 09:00 09:10 09:20 Temperature Pulse Rate 74 91 H 100 H Pulse Rate [ Apical] Pulse Rate [ From Monitor] Respiratory 16 16 19 Rate Blood Pressure 112/75 112/75 112/75 O2 Sat by Pulse 100 100 100 Oximetry 12/28/16 12/28/16 12/28/16 09:30 09:40 09:50 Temperature Pulse Rate 81 76 78 Pulse Rate [ Apical] Pulse Rate [ From Monitor] Respiratory 14 19 15 Rate Blood Pressure 112/75 112/75 112/75 O2 Sat by Pulse 100 100 Oximetry CBC and BMP: 12/28/16 04:14 12/28/16 04:14 ABG, PT/INR, D-dimer: PT/INR, D-dimer PT 12.4 Sec. (12.2-14.9) 12/26/16 13:22 INR 0.93 (0.87-1.13) 12/26/16 13:22 Abnormal lab findings: Abnormal Labs 12/26/16 12/26/16 12/26/16 13:59 15:27 15:50 RBC Hgb Hct MCV MCH Monocytes % (Manual) Monocytes # (Manual) Sodium 135 L Potassium Chloride 97.6 L Carbon Dioxide 11 L BUN Creatinine Glucose 239 H POC Glucose 363 H 301 H Calcium 7.9 L D Ur Specific [employer] 12/26/16 12/26/16 12/26/16 16:40 17:34 18:43 RBC Hgb Hct MCV MCH Monocytes % (Manual) Monocytes # (Manual) Sodium Potassium Chloride Carbon Dioxide BUN Creatinine Glucose POC Glucose 188 H 176 H 196 H Calcium Ur Specific [employer] 12/26/16 12/26/16 12/26/16 19:50 20:21 20:58 RBC Hgb Hct MCV MCH Monocytes % (Manual) Monocytes # (Manual) Sodium 131 L Potassium Chloride 97.8 L Carbon Dioxide 14 L BUN Creatinine Glucose 181 H POC Glucose 187 H 169 H Calcium 8.1 L Ur Specific [employer] 12/26/16 12/26/16 12/27/16 22:10 23:24 00:45 RBC Hgb Hct MCV MCH Monocytes % (Manual) Monocytes # (Manual) Sodium Potassium Chloride Carbon Dioxide BUN Creatinine Glucose POC Glucose 146 H 153 H 136 H Calcium Ur Specific [employer] 12/27/16 12/27/16 12/27/16 02:00 04:11 04:11 RBC Hgb Hct MCV 97 H MCH 33 H Monocytes % (Manual) 15.0 H Monocytes # (Manual) 1.0 H Sodium 131 L Potassium Chloride 97.4 L Carbon Dioxide 16 L BUN Creatinine 0.7 L Glucose 139 H POC Glucose 138 H Calcium Ur Specific [employer] 12/27/16 12/27/16 12/27/16 05:48 07:21 08:47 RBC Hgb Hct MCV MCH Monocytes % (Manual) Monocytes # (Manual) Sodium Potassium Chloride Carbon Dioxide BUN Creatinine Glucose POC Glucose 209 H 189 H 176 H Calcium Ur Specific [employer] 12/27/16 12/27/16 12/27/16 09:55 12:00 12:06 RBC Hgb Hct MCV MCH Monocytes % (Manual) Monocytes # (Manual) Sodium Potassium Chloride Carbon Dioxide 17 L BUN 8 L Creatinine 0.5 L Glucose 132 H POC Glucose 117 H 121 H Calcium Ur Specific [employer] 12/27/16 12/27/16 12/27/16 13:16 13:52 14:48 RBC Hgb Hct MCV MCH Monocytes % (Manual) Monocytes # (Manual) Sodium Potassium Chloride Carbon Dioxide BUN Creatinine Glucose POC Glucose 218 H 218 H 196 H Calcium Ur Specific [employer] 12/27/16 12/27/16 12/27/16 16:12 16:24 18:05 RBC Hgb Hct MCV MCH Monocytes % (Manual) Monocytes # (Manual) Sodium 134 L Potassium Chloride Carbon Dioxide 16 L BUN 6 L Creatinine 0.5 L Glucose 123 H POC Glucose 117 H 124 H Calcium Ur Specific [employer] 12/27/16 12/27/16 12/27/16 19:00 19:11 19:54 RBC Hgb Hct MCV MCH Monocytes % (Manual) Monocytes # (Manual) Sodium 134 L Potassium Chloride Carbon Dioxide 15 L BUN 6 L Creatinine 0.5 L Glucose 118 H POC Glucose 114 H Calcium Ur Specific [employer] 1.002 L 12/27/16 12/27/16 12/27/16 20:02 21:01 22:00 RBC Hgb Hct MCV MCH Monocytes % (Manual) Monocytes # (Manual) Sodium Potassium Chloride Carbon Dioxide BUN Creatinine Glucose POC Glucose 151 H 181 H 177 H Calcium Ur Specific [employer] 12/27/16 12/28/16 12/28/16 22:57 00:00 01:00 RBC Hgb Hct MCV MCH Monocytes % (Manual) Monocytes # (Manual) Sodium Potassium Chloride Carbon Dioxide BUN Creatinine Glucose POC Glucose 212 H 149 H 126 H Calcium Ur Specific [employer] 12/28/16 12/28/16 12/28/16 02:16 03:04 03:57 RBC Hgb Hct MCV MCH Monocytes % (Manual) Monocytes # (Manual) Sodium Potassium Chloride Carbon Dioxide BUN Creatinine Glucose POC Glucose 167 H 190 H 185 H Calcium Ur Specific [employer] 12/28/16 12/28/16 12/28/16 04:14 04:14 05:07 RBC 3.44 L Hgb 11.6 L Hct 33.9 L MCV 99 H MCH 34 H Monocytes % (Manual) Monocytes # (Manual) Sodium 136 L Potassium 3.5 L D Chloride Carbon Dioxide 21 L BUN 4 L Creatinine 0.5 L Glucose 185 H POC Glucose 153 H Calcium Ur Specific [employer] 12/28/16 12/28/16 06:08 07:14 RBC Hgb Hct MCV MCH Monocytes % (Manual) Monocytes # (Manual) Sodium Potassium Chloride Carbon Dioxide BUN Creatinine Glucose POC Glucose 153 H 129 H Calcium Ur Specific [employer]
--- NOTE | 2016-12-28 15:26 | Progress Note ---
Assessment and Plan Assessment and plan: 56-year-old -Finnish man with past medical history significant for diabetes mellitus that was recently diagnosed presented to the emergency department complaining of weakness and dizziness for the last 2 days. He is also complaining of headache. A month ago patient was diagnosed with type 1 diabetes mellitus in [place] while he was incarcerated and he was treated with insulin and discharged from the hospital reveals no history of prescription. Since discharge patient was complaining of polydipsia and polyuria but for the last 2 days the patient become very weak, dizzy and started to have headache since yesterday. Patient denied fever or chills, cough , chest pain, dysuria. Per the patient he said he was diagnosed with type 1 diabetes mellitus so he is 56 years old. DKA Metabolic acidosis Uncontrolled diabetes Mellitus Hypokalemia Medication noncompliance Malnutrition Plan: Continue DKA protocol Start on PO Sodium Bicarbonate Dietary Consult for education. SERIAL LABS, Discussed in detail, Diabetic management with patient Transfer to Medical floor once anion Gap closes. DVT prophylaxis History Interval history: Patient seen and examined in no acute distress, gap is closing. Anticipates being able to transfer to the floor today. Hospitalist Physical - Physical exam Narrative exam: VITAL SIGNS: Reviewed. GENERAL: The patient appeared Normally developed. Vital signs as documented. HEAD: No signs of head trauma. Markedly cachectic with temporal wasting EYES: Pupils are equal. Extraocular motions intact. EARS: Hearing grossly intact. MOUTH: Oropharynx is normal. NECK: No adenopathy, no JVD. CHEST: Chest with clear breath sounds bilaterally. No wheezes, rales, or rhonchi. CARDIAC: Regular rate and rhythm. S1 and S2, without murmurs, gallops, or rubs. VASCULAR: No Edema. Peripheral pulses normal and equal in all extremities. ABDOMEN: Soft, without detectable tenderness. No sign of distention. No rebound or guarding, and no masses palpated. Bowel Sounds normal. MUSCULOSKELETAL: Good range of motion of all major joints. Extremities without clubbing, cyanosis or edema. NEUROLOGIC EXAM: Alert and oriented x 3. No focal sensory or strength deficits. Speech normal. Follows commands. PSYCHIATRIC: Mood normal. SKIN: No rash or lesions. - Constitutional Vitals: Temp Pulse Resp BP Pulse Ox 98.1 F 78 15 112/75 100 12/28/16 08:00 12/28/16 09:50 12/28/16 09:50 12/28/16 09:50 12/28/16 09:40 Results - Labs CBC & Chem 7: 12/28/16 04:14 12/28/16 04:14 Labs: Laboratory Last Values WBC 6.5 K/mm3 (4.5-11.0) 12/28/16 04:14 RBC 3.44 M/mm3 (3.65-5.03) L 12/28/16 04:14 Hgb 11.6 gm/dl (11.8-15.2) L 12/28/16 04:14 Hct 33.9 % (35.5-45.6) L 12/28/16 04:14 MCV 99 fl (84-94) H 12/28/16 04:14 MCH 34 pg (28-32) H 12/28/16 04:14 MCHC 34 % (32-34) 12/28/16 04:14 RDW 15.0 % (13.2-15.2) 12/28/16 04:14 Plt Count 145 K/mm3 (140-440) 12/28/16 04:14 Lymph % (Auto) 15.8 % (13.4-35.0) 12/26/16 10:17 Mcminn % (Auto) Save All Operator 12/27/16 04:11 Eos % (Auto) 0.4 % (0.0-4.3) 12/26/16 10:17 Baso % (Auto) 0.8 % (0.0-1.8) 12/26/16 10:17 Lymph # 1.5 K/mm3 (1.2-5.4) 12/26/16 10:17 Mcminn # 0.8 K/mm3 (0.0-0.8) 12/26/16 10:17 Eos # 0.0 K/mm3 (0.0-0.4) 12/26/16 10:17 Baso # 0.1 K/mm3 (0.0-0.1) 12/26/16 10:17 Add Manual Diff Complete 12/27/16 04:11 Total Counted 100 12/27/16 04:11 Seg Neutrophils % 74.4 % (40.0-70.0) H 12/26/16 10:17 Seg Neuts % (Manual) 55.0 % (40.0-70.0) 12/27/16 04:11 Band Neutrophils % 8.0 % 12/27/16 04:11 Lymphocytes % (Manual) 22.0 % (13.4-35.0) 12/27/16 04:11 Reactive Lymphs % (Man) 0 % 12/27/16 04:11 Monocytes % (Manual) 15.0 % (0.0-7.3) H 12/27/16 04:11 Eosinophils % (Manual) 0 % (0.0-4.3) 12/27/16 04:11 Basophils % (Manual) 0 % (0.0-1.8) 12/27/16 04:11 Metamyelocytes % 0 % 12/27/16 04:11 Myelocytes % 0 % 12/27/16 04:11 Promyelocytes % 0 % 12/27/16 04:11 Blast Cells % 0 % 12/27/16 04:11 Nucleated RBC % Not Reportable 12/27/16 04:11 Seg Neutrophils # 6.9 K/mm3 (1.8-7.7) 12/26/16 10:17 Seg Neutrophils # Man 3.8 K/mm3 (1.8-7.7) 12/27/16 04:11 Band Neutrophils # 0.6 K/mm3 12/27/16 04:11 Lymphocytes # (Manual) 1.5 K/mm3 (1.2-5.4) 12/27/16 04:11 Abs React Lymphs (Man) 0.0 K/mm3 12/27/16 04:11 Monocytes # (Manual) 1.0 K/mm3 (0.0-0.8) H 12/27/16 04:11 Eosinophils # (Manual) 0.0 K/mm3 (0.0-0.4) 12/27/16 04:11 Basophils # (Manual) 0.0 K/mm3 (0.0-0.1) 12/27/16 04:11 Metamyelocytes # 0.0 K/mm3 12/27/16 04:11 Myelocytes # 0.0 K/mm3 12/27/16 04:11 Promyelocytes # 0.0 K/mm3 12/27/16 04:11 Blast Cells # 0.0 K/mm3 12/27/16 04:11 WBC Morphology Not Reportable 12/27/16 04:11 Hypersegmented Neuts Not Reportable 12/27/16 04:11 Hyposegmented Neuts Not Reportable 12/27/16 04:11 Hypogranular Neuts Not Reportable 12/27/16 04:11 Smudge Cells Not Reportable 12/27/16 04:11 Toxic Granulation Not Reportable 12/27/16 04:11 Toxic Vacuolation Not Reportable 12/27/16 04:11 Dohle Bodies Not Reportable 12/27/16 04:11 Pelger-Huet Anomaly Not Reportable 12/27/16 04:11 Chinyere Rods Not Reportable 12/27/16 04:11 Platelet Estimate Appears normal 12/27/16 04:11 Clumped Platelets Not Reportable 12/27/16 04:11 Plt Clumps, EDTA Not Reportable 12/27/16 04:11 Large Platelets Few 12/27/16 04:11 Giant Platelets Not Reportable 12/27/16 04:11 Platelet Satelliting Not Reportable 12/27/16 04:11 Plt Morphology Comment Not Reportable 12/27/16 04:11 RBC Morphology Not Reportable 12/27/16 04:11 Dimorphic RBCs Not Reportable 12/27/16 04:11 Polychromasia Not Reportable 12/27/16 04:11 Hypochromasia Few 12/27/16 04:11 Poikilocytosis Not Reportable 12/27/16 04:11 Anisocytosis Few 12/27/16 04:11 Microcytosis Not Reportable 12/27/16 04:11 Macrocytosis Not Reportable 12/27/16 04:11 Spherocytes Not Reportable 12/27/16 04:11 Pappenheimer Bodies Not Reportable 12/27/16 04:11 Sickle Cells Not Reportable 12/27/16 04:11 Target Cells Not Reportable 12/27/16 04:11 Tear Drop Cells Not Reportable 12/27/16 04:11 Ovalocytes Not Reportable 12/27/16 04:11 Helmet Cells Not Reportable 12/27/16 04:11 Le-Broadlands Bodies Not Reportable 12/27/16 04:11 Woody Rings Not Reportable 12/27/16 04:11 Fredrick Cells Not Reportable 12/27/16 04:11 Bite Cells Not Reportable 12/27/16 04:11 Crenated Cell Not Reportable 12/27/16 04:11 Elliptocytes Not Reportable 12/27/16 04:11 Acanthocytes (Spur) Not Reportable 12/27/16 04:11 Rouleaux Not Reportable 12/27/16 04:11 Hemoglobin C Crystals Not Reportable 12/27/16 04:11 Schistocytes Not Reportable 12/27/16 04:11 Malaria parasites Not Reportable 12/27/16 04:11 Jerry Bodies Not Reportable 12/27/16 04:11 Hem Pathologist Commnt No 12/27/16 04:11 PT 12.4 Sec. (12.2-14.9) 12/26/16 13:22 INR 0.93 (0.87-1.13) 12/26/16 13:22 APTT 30.3 Sec. (24.2-36.6) 12/26/16 13:22 Sodium 136 mmol/L (137-145) L 12/28/16 04:14 Potassium 3.5 mmol/L (3.6-5.0) L D 12/28/16 04:14 Chloride 102.4 mmol/L (98-107) 12/28/16 04:14 Carbon Dioxide 21 mmol/L (22-30) L 12/28/16 04:14 Anion Gap 16 mmol/L 12/28/16 04:14 BUN 4 mg/dL (9-20) L 12/28/16 04:14 Creatinine 0.5 mg/dL (0.8-1.5) L 12/28/16 04:14 Estimated GFR > 60 ml/min 12/28/16 04:14 BUN/Creatinine Ratio 8.00 % 12/28/16 04:14 Glucose 185 mg/dL (75-100) H 12/28/16 04:14 POC Glucose 405 (70-105) H 12/28/16 14:04 Hemoglobin A1c 9.8 % (4-6) H 12/26/16 10:17 Calcium 8.7 mg/dL (8.4-10.2) 12/28/16 04:14 Total Bilirubin 0.50 mg/dL (0.1-1.2) 12/26/16 13:22 Direct Bilirubin < 0.2 mg/dL (0-0.2) 12/26/16 13:22 AST 13 units/L (5-40) 12/26/16 13:22 ALT 11 units/L (7-56) 12/26/16 13:22 Alkaline Phosphatase 133 units/L (35-129) H 12/26/16 13:22 Total Creatine Kinase 31 units/L (55-170) L 12/26/16 13:22 CK-MB (CK-2) 1.6 ng/mL (0.0-4.0) 12/26/16 13:22 CK-MB (CK-2) Rel Index 5.1 (0-4) H 12/26/16 13:22 Troponin T < 0.010 ng/mL (0.00-0.029) 12/26/16 13:22 NT-Pro-B Natriuret Pep 41.61 pg/mL (0-900) 12/26/16 13:22 Total Protein 8.6 g/dL (6.3-8.2) H 12/26/16 13:22 Albumin 4.9 g/dL (3.9-5) 12/26/16 13:22 Albumin/Globulin Ratio 1.3 % 12/26/16 13:22 Urine Color Straw (Yellow) 12/27/16 19:00 Urine Turbidity Clear (Clear) 12/27/16 19:00 Urine pH 6.0 (5.0-7.0) 12/27/16 19:00 Ur Specific [place] 1.002 (1.003-1.030) L 12/27/16 19:00 Urine Protein <15 mg/dl mg/dL (Negative) 12/27/16 19:00 Urine Glucose (UA) 50 mg/dL (Negative) 12/27/16 19:00 Urine Ketones Tr mg/dL (Negative) 12/27/16 19:00 Urine Blood Neg (Negative) 12/27/16 19:00 Urine Nitrite Neg (Negative) 12/27/16 19:00 Urine Bilirubin Neg (Negative) 12/27/16 19:00 Urine Urobilinogen < 2.0 mg/dL (<2.0) 12/27/16 19:00 Ur Leukocyte Esterase Neg (Negative) 12/27/16 19:00 Urine WBC (Auto) < 1.0 /HPF (0.0-6.0) 12/27/16 19:00 Urine RBC (Auto) < 1.0 /HPF (0.0-6.0) 12/27/16 19:00 Urine Mucus Few /HPF 12/26/16 10:04
[2016-12-29 08:51] VITALS: BP 100/67
[2016-12-29] MEDS: COLACE PO SCH (09:56)
[2016-12-29] MEDS: SODIUM BICARBONATE PO SCH (09:56)
[2016-12-29] MEDS: PEPCID PO SCH (09:56)
[2016-12-29] MEDS: BABY ASPIRIN PO SCH (09:56)
[2016-12-29] MEDS: LOVENOX SUB-Q SCH (09:59)
--- NOTE | 2016-12-29 11:11 | Discharge Summary ---
Providers - Providers Date of Admission: 12/26/16 13:53 Date of discharge: 12/29/16 Attending physician: CHALO SAUCEDO MD Primary care physician: [employer] Hospitalization Reason for admission: DKA Condition: Stable Hospital course: 56-year-old -[place] man with past medical history significant for diabetes mellitus that was recently diagnosed presented to the emergency department complaining of weakness and dizziness for the last 2 days. He is also complaining of headache. A month ago patient was diagnosed with type 1 diabetes mellitus in [place] while he was incarcerated and he was treated with insulin and discharged from the hospital reveals no history of prescription. Since discharge patient was complaining of polydipsia and polyuria but for the last 2 days the patient become very weak, dizzy and started to have headache since yesterday. Patient denied fever or chills, cough , chest pain, dysuria. Per the patient he said he was diagnosed with type 1 diabetes mellitus so he is 56 years old. The patient was admitted to the intensive care unit and started on DKA protocol with good resolution. He was subsequent to transfer to the medical floor and insulin adjustment. He'll be discharged on insulin with sliding scale and knows that this still requires adjustment of giving him information on facilities nearby where he will be followed. He is also to have ophthalmology and podiatry's exam yearly. Toprol was not started due to patient's blood pressure. Discharge diagnosis DKA Metabolic acidosis Uncontrolled diabetes Mellitus Hypokalemia Medication noncompliance Malnutrition Disposition: DC-01 TO HOME OR SELFCARE Time spent for discharge: 35 mins Core Measure Documentation - Palliative Care Palliative Care/ Comfort Measures: Not Applicable - Core Measures Any of the following diagnoses?: none - VTE Discharge Requirements Deep Vein Thrombosis/Pulmonary Embolism Present on Admission: No Exam - Physical Exam Narrative exam: VITAL SIGNS: Reviewed. GENERAL: The patient appeared Normally developed. Vital signs as documented. HEAD: No signs of head trauma. Markedly cachectic with temporal wasting EYES: Pupils are equal. Extraocular motions intact. EARS: Hearing grossly intact. MOUTH: Oropharynx is normal. NECK: No adenopathy, no JVD. CHEST: Chest with clear breath sounds bilaterally. No wheezes, rales, or rhonchi. CARDIAC: Regular rate and rhythm. S1 and S2, without murmurs, gallops, or rubs. VASCULAR: No Edema. Peripheral pulses normal and equal in all extremities. ABDOMEN: Soft, without detectable tenderness. No sign of distention. No rebound or guarding, and no masses palpated. Bowel Sounds normal. MUSCULOSKELETAL: Good range of motion of all major joints. Extremities without clubbing, cyanosis or edema. NEUROLOGIC EXAM: Alert and oriented x 3. No focal sensory or strength deficits. Speech normal. Follows commands. PSYCHIATRIC: Mood normal. SKIN: No rash or lesions. - Constitutional Vitals: Temp Pulse Resp BP Pulse Ox 100.2 F H 90 19 100/67 100 12/29/16 07:00 12/29/16 07:00 12/29/16 07:00 12/29/16 07:00 12/29/16 02:38 Plan Activity: advance as tolerated, fall precautions Diet: diabetic Special Instructions: record daily BP diary, record blood sugar diary Additional Instructions: must have yearly, eye and podiatry exams Follow up with: PRIMARY CARE, [Primary Care Provider] - 3-5 Days Prescriptions: Rosuvastatin (Nf) [Crestor] 10 mg PO QHS #30 tablet Insulin NPH/Regular [NovoLIN 70/30] 20 unit SUB-Q BIDDIAB 30 Days Insulin Regular, Human [HumuLIN R] 0 units SUB-Q ACHS #30 units Other Discharge Orders: Glucometer (Amb) Location: Determined By Patient Glucometer supplies[Amb] Location: Determined By Patient
[2016-12-29 15:27] LABS: Cholesterol 315 mg/dL (50-199); HDL Cholesterol 69 mg/dL (40-59); LDL Cholesterol,Direct TNR mg/dL (50-130); Triglycerides 552 mg/dL (2-149)
== END 2016-12-29 16:00 | disposition home or self-care (01) | DRG 638 ==
LOC: ED 09:43 → CC1 13:53 → 3A 12-28 11:42
PROVIDERS: ADMIT Internal Medicine; ATTEND Internal Medicine
DX: E10.10 Type 1 diabetes mellitus with ketoacidosis without coma (principal); E46 Unspecified protein-calorie malnutrition; Z68.1 Body mass index [BMI] 19.9 or less, adult; E10.65 Type 1 diabetes mellitus with hyperglycemia; E87.6 Hypokalemia; F17.210 Nicotine dependence, cigarettes, uncomplicated; F10.10 Alcohol abuse, uncomplicated; Z88.1 Allergy status to other antibiotic agents; Z91.14 Patient's other noncompliance with medication regimen
CPT/HCPCS: 36415; 71010; 80048; 80061; 80074; 81001; 82550; 82553; 82962; 83036; 83735; 83880; 84100; 84484; 85007; 85025; 85027; 85610; 85730; 93005; 93010; 96361; 96374; J1650; J1815; J7030

== ENCOUNTER 2021-06-10 21:49 | Inpatient (IN) | payer MEDICARE ==
[2021-06-10] MEDS ORDERED: SODIUM CHLORIDE 0.9% 1000 ML 1,000 ML IV ONE ×2 (22:04→23:42)
[2021-06-10] MEDS ORDERED: INSULIN REGULAR, HUMAN 100 UNITS/1 ML IV ONE (22:06)
--- NOTE | 2021-06-10 22:11 | Emergency Department Report ---
ED General Adult HPI - General Stated complaint: HIGHBLOOD SUGAR Time Seen by Provider: 06/10/21 21:57 Source: EMS - History of Present Illness Initial comments: Patient is 61 years old male with history of insulin-dependent diabetes mellitus, noncompliant with his medication. Patient brought to the emergency room via EMS from home after patient was found by his sister with altered mental status and a strong smell of acetone. EMS stated that patient found to be hypoxic with an oxygen saturation initially of 70% that improved to 95% on a nonrebreather. Patient have to be restrained due to significant altered mental status. Patient is moving all extremities. - Related Data Home Medications Medication Instructions Recorded Confirmed Last Taken Stephane Cit/Mag/D3/Zn/Group Sales Representative/Wood/Bor 1 each PO QDAY 05/22/20 05/22/20 Unknown [Citracal-D3 Plus Magnesium Tab] Cyanocobalamin (Vitamin B-12) 5,000 mcg PO QDAY 05/22/20 05/22/20 Unknown [Vitamin B-12] Cyclobenzaprine [Flexeril 10 MG 10 mg PO TID PRN 05/22/20 05/22/20 Unknown TAB] Folic Acid 0.8 mg PO QDAY 05/22/20 05/22/20 Unknown Lisinopril [Zestril] 5 mg PO QDAY 05/22/20 05/22/20 Unknown Lispro Insulin [HumaLOG] 0 unit SQ ACHS 05/22/20 05/22/20 Unknown Melatonin [Melatonin 10MG TAB] 10 mg PO QHS 05/22/20 05/22/20 Unknown Metoprolol Xl [Metoprolol 50 mg PO QDAY 05/22/20 05/22/20 Unknown SUCCINATE ER TAB] Travoprost 2.5 ml OP QDAY 05/22/20 05/22/20 Unknown Previous Rx's Medication Instructions Recorded Last Taken Type Insulin Glargine [Lantus VIAL] 15 units SUB-Q QAM #10 ml 05/24/20 Unknown Rx Insulin Glargine [Lantus VIAL] 30 units SUB-Q QHS #10 ml 05/24/20 Unknown Rx Metoclopramide [Reglan TAB] 10 mg PO Q6H PRN #30 tablet 05/24/20 Unknown Rx Pantoprazole [Protonix] 40 mg PO QDAY #30 tablet 05/24/20 Unknown Rx Sucralfate [Carafate] 1 gm PO ACHS 30 Days 05/24/20 Unknown Rx Allergies Allergy/AdvReac Type Severity Reaction Status Date / Time Tetracyclines Allergy Swelling Verified 12/26/16 09:54 ED Review of Systems ROS: Stated complaint: HIGHBLOOD SUGAR Other details as noted in HPI Comment: Unobtainable due to pts medical conditions ED Past Medical Hx - Past Medical History Hx Congestive Heart Failure: No Hx Diabetes: Yes (new diagnosis DM1) Hx Arthritis: Yes (bilat knees, bilat elbows and right shoulder) Hx Asthma: No Hx COPD: No Hx HIV: No - Surgical History Additional Surgical History: Bone marrow biopsy - Social History Smoking Status: Current Every Day Smoker Substance Use Type: Alcohol - Medications Home Medications: Home Medications Medication Instructions Recorded Confirmed Last Taken Type Stephane Cit/Mag/D3/Zn/Group Sales Representative/Wood/Bor 1 each PO QDAY 05/22/20 05/22/20 Unknown History [Citracal-D3 Plus Magnesium Tab] Cyanocobalamin (Vitamin B-12) 5,000 mcg PO QDAY 05/22/20 05/22/20 Unknown History [Vitamin B-12] Cyclobenzaprine [Flexeril 10 MG 10 mg PO TID PRN 05/22/20 05/22/20 Unknown History TAB] Folic Acid 0.8 mg PO QDAY 05/22/20 05/22/20 Unknown History Lisinopril [Zestril] 5 mg PO QDAY 05/22/20 05/22/20 Unknown History Lispro Insulin [HumaLOG] 0 unit SQ ACHS 05/22/20 05/22/20 Unknown History Melatonin [Melatonin 10MG TAB] 10 mg PO QHS 05/22/20 05/22/20 Unknown History Metoprolol Xl [Metoprolol 50 mg PO QDAY 05/22/20 05/22/20 Unknown History SUCCINATE ER TAB] Travoprost 2.5 ml OP QDAY 05/22/20 05/22/20 Unknown History Insulin Glargine [Lantus VIAL] 15 units SUB-Q QAM #10 ml 05/24/20 Unknown Rx Insulin Glargine [Lantus VIAL] 30 units SUB-Q QHS #10 ml 05/24/20 Unknown Rx Metoclopramide [Reglan TAB] 10 mg PO Q6H PRN #30 tablet 05/24/20 Unknown Rx Pantoprazole [Protonix] 40 mg PO QDAY #30 tablet 05/24/20 Unknown Rx Sucralfate [Carafate] 1 gm PO ACHS 30 Days 05/24/20 Unknown Rx ED Physical Exam - General General appearance: alert, other (Confused and agitated.) - Head Head exam: Present: atraumatic, normocephalic, normal inspection - Eye Eye exam: Present: normal appearance - ENT ENT exam: Present: mucous membranes dry - Neck Neck exam: Present: normal inspection - Respiratory Respiratory exam: Present: normal lung sounds bilaterally - Cardiovascular Cardiovascular Exam: Present: tachycardia - GI/Abdominal GI/Abdominal exam: Present: soft, normal bowel sounds. Absent: distended, tenderness, guarding, rebound - Extremities Exam Extremities exam: Present: normal inspection, full ROM - Back Exam Back exam: Absent: CVA tenderness (R), CVA tenderness (L) - Neurological Exam Neurological exam: Present: altered, CN II-XII intact. Absent: motor sensory deficit - Psychiatric Psychiatric exam: Present: normal mood - Skin Skin exam: Present: warm, intact ED Course - Consultations Consultation #1: 06/11/21 00:40 I discussed the patient with Dr. Orellana, informed about the patient he stated that he will follow-up with the patient in the ICU. ED Medical Decision Making - Lab Data Result diagrams: 06/10/21 22:57 06/10/21 22:57 - Radiology Data Radiology results: report reviewed - Medical Decision Making Patient is 61 years old male with history of insulin-dependent diabetes mellitus, noncompliant with his medication. Patient brought to the emergency room via EMS from home after patient was found by his sister with altered mental status and a strong smell of acetone. EMS stated that patient found to be hypoxic with an oxygen saturation initially of 70% that improved to 95% on a nonrebreather. Patient have to be restrained due to significant altered mental status. Patient is moving all extremities. Patient found to be in DKA with anion gap of 60. Blood glucose is 1080. Labs also showed a creatinine of 3.6 and a BUN of 59. Patient in acute renal failure. Patient started normal saline and insulin drip. Dr. Albert, twine reeling machine operator on-call has been paged and consult request has been put for him. I discussed the patient with Dr. Nabi, he agreed to admit the patient to medical service for further management. Critical Care Time: Yes Critical care time in (mins) excluding proc time.: 35 Critical care attestation.: If time is entered above; I have spent that time in minutes in the direct care of this critically ill patient, excluding procedure time. ED Disposition Clinical Impression: DKA, type 1, Acute renal insufficiency Disposition: 09 ADMITTED INPATIENT Is pt being admited?: Yes Condition: Stable Instructions: Diabetes Mellitus Type 2 in Adults (ED)
--- NOTE | 2021-06-10 22:52 | XRay Report ---
. CHEST 1 VIEW INDICATION: Altered Mental Status. COMPARISON: 05/22/2020 FINDINGS: SUPPORT DEVICES: None. HEART: Within normal limits. LUNGS/PLEURA: Right costophrenic angle is excluded. Lungs are otherwise clear. ADDITIONAL FINDINGS: None. IMPRESSION: 1. No acute findings. Signer Name: Tyson Hill MD Signed: 06/10/2021 10:48 PM Workstation Name: [id number]
[2021-06-10 23:24] LABS: Mean Corpuscular HGB Conc 29 % (32-34); Platelet Count 178 K/mm3 (140-440); Red Blood Count 2.64 M/mm3 (3.65-5.03); Red Cell Distribution Width 17.9 % (13.2-15.2)
[2021-06-10 23:38] LABS: Calcium 9.2 mg/dL (8.4-10.2)
[2021-06-10 23:39] LABS: Hematocrit 31.1 % (35.5-45.6); Hemoglobin 8.9 gm/dl (11.8-15.2); Mean Corpuscular Volume 118 fl (84-94)
[2021-06-10 23:42] LABS: Alanine Aminotransferase 44 units/L (7-56); INR 1.01 (0.87-1.13); Partial Thromboplastin Time 29.1 Sec. (24.2-36.6)
[2021-06-10 23:43] LABS: Bilirubin,Direct < 0.2 mg/dL (0-0.2)
[2021-06-10] MEDS ORDERED: DEXTROSE 50% IN WATER (25GM) 50 ML SYRINGE IV PRN (23:45)
[2021-06-11 00:27] LABS: Anisocytosis RARE; Basophils % (Manual) 0 % (0.0-1.8); Eosinophils % (Manual) 0 % (0.0-4.3); Total Cells Counted 100
[2021-06-11 00:28] LABS: Macrocytosis 1+
[2021-06-11 00:34] LABS: Calcium 8.7 mg/dL (8.4-10.2)
[2021-06-11] MEDS: INSULIN REGULAR, HUMAN 100 UNITS in SODIUM CHLORIDE 0.9% 99 ML IV SCH ×2 (00:58→13:23)
[2021-06-11] MEDS ORDERED: DEXTROSE 50% IN WATER (25GM) 50 ML SYRINGE IV PRN (01:35)
[2021-06-11] MEDS ORDERED: ONDANSETRON 4 MG/2 ML INJ IV PRN (01:35)
[2021-06-11] MEDS ORDERED: ALBUTEROL 2.5 MG/3 ML NEBU IH PRN (01:35)
[2021-06-11] MEDS ORDERED: ACETAMINOPHEN 325 MG TAB PO PRN (01:35)
--- NOTE | 2021-06-11 01:46 | History and Physical Report ---
History of Present Illness Date of examination: 06/11/21 Date of admission: 06/11/21 Chief complaint: Hyperglycemia History of present illness: 61 years old male with history of insulin-dependent diabetes mellitus, noncompliant with his medication was brought to the emergency room via EMS from home after patient was found by his sister with altered mental status and a strong smell of acetone. EMS stated that patient found to be hypoxic with an oxygen saturation initially of 70% that improved to 95% on a nonrebreather. Patient have to be restrained due to significant altered mental status. Patient is moving all extremities. In the emergency room patient found to be in DKA with anion gap of 60. Blood glucose is 1080. Bicarb was 4, BUN 59 creatinine 3.6, lactic acid 13.10, potassium 5.6 labs also showed a creatinine of 3.6 and a BUN of 59. WBC 17.5. patient in acute renal failure. 's were going to admit the patient to the ICU we will put the patient on IV fluid DKA protocol insulin drip. Zosyn 4.5 g IV every 8 hours and vancomycin. Reconsult nephrology for evaluation Past History Past Medical History: arthritis, diabetes, renal failure Medications and Allergies Allergies Allergy/AdvReac Type Severity Reaction Status Date / Time Tetracyclines Allergy Swelling Verified 12/26/16 09:54 Home Medications Medication Instructions Recorded Confirmed Last Taken Type Stephane Cit/Mag/D3/Zn/Geospatial Information Scientist/Wood/Bor 1 each PO QDAY 05/22/20 05/22/20 Unknown History [Citracal-D3 Plus Magnesium Tab] Cyanocobalamin (Vitamin B-12) 5,000 mcg PO QDAY 05/22/20 05/22/20 Unknown History [Vitamin B-12] Cyclobenzaprine [Flexeril 10 MG 10 mg PO TID PRN 05/22/20 05/22/20 Unknown History TAB] Folic Acid 0.8 mg PO QDAY 05/22/20 05/22/20 Unknown History Lisinopril [Zestril] 5 mg PO QDAY 05/22/20 05/22/20 Unknown History Lispro Insulin [HumaLOG] 0 unit SQ ACHS 05/22/20 05/22/20 Unknown History Melatonin [Melatonin 10MG TAB] 10 mg PO QHS 05/22/20 05/22/20 Unknown History Metoprolol Xl [Metoprolol 50 mg PO QDAY 05/22/20 05/22/20 Unknown History SUCCINATE ER TAB] Travoprost 2.5 ml OP QDAY 05/22/20 05/22/20 Unknown History Insulin Glargine [Lantus VIAL] 15 units SUB-Q QAM #10 ml 05/24/20 Unknown Rx Insulin Glargine [Lantus VIAL] 30 units SUB-Q QHS #10 ml 05/24/20 Unknown Rx Metoclopramide [Reglan TAB] 10 mg PO Q6H PRN #30 tablet 05/24/20 Unknown Rx Pantoprazole [Protonix] 40 mg PO QDAY #30 tablet 05/24/20 Unknown Rx Sucralfate [Carafate] 1 gm PO ACHS 30 Days 05/24/20 Unknown Rx Active Meds: Active Medications Acetaminophen (Acetaminophen 325 Mg Tab) 650 mg PO Q4H PRN PRN Reason: Pain MILD(1-3)/Fever >100.5/JAVIER Albuterol (Albuterol 2.5 Mg/3 Ml Nebu) 2.5 mg IH Q4HRT PRN PRN Reason: Shortness Of Breath Albuterol/Ipratropium (Ipratropium/Albuterol Sulfate 3 Ml Ampul.Neb) 1 ampul IH Q6HRT ESTHER Dextrose (Dextrose 50% In Water (25gm) 50 Ml Syringe) 0 ml IV Q30MIN PRN; Protocol PRN Reason: Hypoglycemia Dextrose (Dextrose 50% In Water (25gm) 50 Ml Syringe) 0 ml IV Q30MIN PRN; Protocol PRN Reason: Hypoglycemia Famotidine (Famotidine 20 Mg/2 Ml Inj) 20 mg IV BID ESTHER Heparin Sodium (Porcine) (Heparin 5,000 Unit/1 Ml Vial) 5,000 unit SUB-Q Q12HR ESTHER Hydromorphone HCl (Hydromorphone 1 Mg/1 Ml Inj) 0.5 mg IV Q3H PRN PRN Reason: Pain , Severe (7-10) Insulin Human Regular 100 (units/ Sodium Chloride) 100 mls @ 1 mls/hr IV TITR ESTHER; Protocol Last Admin: 06/11/21 00:58 Dose: 1 units/hr, 1 mls/hr Insulin Human Regular 100 (units/ Sodium Chloride) 100 mls @ 1 mls/hr IV TITR ESTHER; Protocol Sodium Chloride (Nacl 0.45% 1000 Ml) 1,000 mls @ 150 mls/hr IV DIRECT ESTHER Potassium Chloride/Dextrose/Sod Cl (D5w/0.45% Nacl/Kcl 20 Meq) 20 meq in 1,000 mls @ 125 mls/hr IV DIRECT ESTHER Piperacillin Sod/Tazobactam Sod (Zosyn/Ns 4.5gm/100ml) 4.5 gm in 100 mls @ 200 mls/hr IV Q8H ESTHER; Protocol Vancomycin HCl (Vancomycin/Ns 1 Gm/250 Ml) 1 gm in 250 mls @ 166.667 mls/hr IV Q12H ESTHER; Protocol Sodium Bicarbonate 50 meq/ (Sodium Chloride) 1,050 mls @ 100 mls/hr IV DIRECT ESTHER Morphine Sulfate (Morphine 2 Mg/1 Ml Inj) 2 mg IV Q4H PRN PRN Reason: Pain, Moderate (4-6) Ondansetron HCl (Ondansetron 4 Mg/2 Ml Inj) 4 mg IV Q8H PRN PRN Reason: Nausea And Vomiting Sodium Chloride (Sodium Chloride 0.9% 10 Ml Flush Syringe) 10 ml IV BID ESTHER Sodium Chloride (Sodium Chloride 0.9% 10 Ml Flush Syringe) 10 ml IV PRN PRN PRN Reason: LINE FLUSH Review of Systems All systems: negative Constitutional: fatigue, malaise, lethargy Neurological: change in mentation Exam - Constitutional Vitals: Temp Pulse Resp BP Pulse Ox 150 H 20 104/49 93 06/11/21 01:01 06/11/21 01:01 06/11/21 01:01 06/11/21 01:33 General appearance: Present: severe distress, cachectic - EENT Eyes: Present: PERRL ENT: hearing intact, clear oral mucosa - Neck Neck: Present: supple, normal ROM - Respiratory Respiratory effort: normal Respiratory: bilateral: diminished - Cardiovascular Heart Sounds: Present: S1 & S2. Absent: rub, click - Extremities Extremities: pulses symmetrical, No edema Peripheral Pulses: within normal limits - Abdominal General gastrointestinal: Present: soft, non-tender, non-distended, normal bowel sounds Male genitourinary: Present: normal - Integumentary Integumentary: Present: clear, warm, dry - Musculoskeletal Musculoskeletal: gait normal, strength equal bilaterally - Psychiatric Psychiatric: appropriate mood/affect, intact judgment & insight - Neurologic Neurologic: CNII-XII intact, moves all extremities HEART Score - HEART Score Troponin: Troponin T < 0.010 ng/mL (0.00-0.029) 06/10/21 22:57 Results - Labs CBC & Chem 7: 06/10/21 22:57 06/11/21 00:08 Labs: Laboratory Last Values WBC 17.5 K/mm3 (4.5-11.0) H 06/10/21 22:57 RBC 2.64 M/mm3 (3.65-5.03) L 06/10/21 22:57 Hgb 8.9 gm/dl (11.8-15.2) L 06/10/21 22:57 Hct 31.1 % (35.5-45.6) L 06/10/21 22:57 MCV 118 fl (84-94) H 06/10/21 22:57 MCH 34 pg (28-32) H 06/10/21 22:57 MCHC 29 % (32-34) L 06/10/21 22:57 RDW 17.9 % (13.2-15.2) H 06/10/21 22:57 Plt Count 178 K/mm3 (140-440) 06/10/21 22:57 Add Manual Diff Complete 06/10/21 22:57 Total Counted 100 06/10/21 22:57 Seg Neuts % (Manual) 90.0 % (40.0-70.0) H 06/10/21 22:57 Band Neutrophils % 0 % 06/10/21 22:57 Lymphocytes % (Manual) 4.0 % (13.4-35.0) L 06/10/21 22:57 Reactive Lymphs % (Man) 0 % 06/10/21 22:57 Monocytes % (Manual) 6.0 % (0.0-7.3) 06/10/21 22:57 Eosinophils % (Manual) 0 % (0.0-4.3) 06/10/21 22:57 Basophils % (Manual) 0 % (0.0-1.8) 06/10/21 22:57 Metamyelocytes % 0 % 06/10/21 22:57 Myelocytes % 0 % 06/10/21 22:57 Promyelocytes % 0 % 06/10/21 22:57 Blast Cells % 0 % 06/10/21 22:57 Nucleated RBC % Not Reportable 06/10/21 22:57 Seg Neutrophils # Man 15.8 K/mm3 (1.8-7.7) H 06/10/21 22:57 Band Neutrophils # 0.0 K/mm3 06/10/21 22:57 Lymphocytes # (Manual) 0.7 K/mm3 (1.2-5.4) L 06/10/21 22:57 Abs React Lymphs (Man) 0.0 K/mm3 06/10/21 22:57 Monocytes # (Manual) 1.1 K/mm3 (0.0-0.8) H 06/10/21 22:57 Eosinophils # (Manual) 0.0 K/mm3 (0.0-0.4) 06/10/21 22:57 Basophils # (Manual) 0.0 K/mm3 (0.0-0.1) 06/10/21 22:57 Metamyelocytes # 0.0 K/mm3 06/10/21 22:57 Myelocytes # 0.0 K/mm3 06/10/21 22:57 Promyelocytes # 0.0 K/mm3 06/10/21 22:57 Blast Cells # 0.0 K/mm3 06/10/21 22:57 WBC Morphology Not Reportable 06/10/21 22:57 Hypersegmented Neuts Not Reportable 06/10/21 22:57 Hyposegmented Neuts Not Reportable 06/10/21 22:57 Hypogranular Neuts Not Reportable 06/10/21 22:57 Smudge Cells Not Reportable 06/10/21 22:57 Toxic Granulation Not Reportable 06/10/21 22:57 Toxic Vacuolation Not Reportable 06/10/21 22:57 Dohle Bodies Not Reportable 06/10/21 22:57 Pelger-Huet Anomaly Not Reportable 06/10/21 22:57 Chinyere Rods Not Reportable 06/10/21 22:57 Platelet Estimate Not Reportable 06/10/21 22:57 Clumped Platelets Not Reportable 06/10/21 22:57 Plt Clumps, EDTA Not Reportable 06/10/21 22:57 Large Platelets Not Reportable 06/10/21 22:57 Giant Platelets Not Reportable 06/10/21 22:57 Platelet Satelliting Not Reportable 06/10/21 22:57 Plt Morphology Comment Not Reportable 06/10/21 22:57 RBC Morphology Not Reportable 06/10/21 22:57 Dimorphic RBCs Not Reportable 06/10/21 22:57 Polychromasia Not Reportable 06/10/21 22:57 Hypochromasia Not Reportable 06/10/21 22:57 Poikilocytosis Not Reportable 06/10/21 22:57 Anisocytosis Rare 06/10/21 22:57 Microcytosis Not Reportable 06/10/21 22:57 Macrocytosis 1+ 06/10/21 22:57 Spherocytes Not Reportable 06/10/21 22:57 Pappenheimer Bodies Not Reportable 06/10/21 22:57 Sickle Cells Not Reportable 06/10/21 22:57 Target Cells Not Reportable 06/10/21 22:57 Tear Drop Cells Not Reportable 06/10/21 22:57 Ovalocytes Not Reportable 06/10/21 22:57 Helmet Cells Not Reportable 06/10/21 22:57 [place] Bodies Not Reportable 06/10/21 22:57 Cassoday Rings Not Reportable 06/10/21 22:57 Fredrick Cells Not Reportable 06/10/21 22:57 Bite Cells Not Reportable 06/10/21 22:57 Crenated Cell Not Reportable 06/10/21 22:57 Elliptocytes Not Reportable 06/10/21 22:57 Acanthocytes (Spur) Not Reportable 06/10/21 22:57 Rouleaux Not Reportable 06/10/21 22:57 Hemoglobin C Crystals Not Reportable 06/10/21 22:57 Schistocytes Not Reportable 06/10/21 22:57 Malaria parasites Not Reportable 06/10/21 22:57 Jerry Bodies Not Reportable 06/10/21 22:57 Hem Pathologist Commnt No 06/10/21 22:57 PT 14.4 Sec. (12.2-14.9) 06/10/21 22:57 INR 1.01 (0.87-1.13) 06/10/21 22:57 APTT 29.1 Sec. (24.2-36.6) 06/10/21 22:57 ABG pH 7.022 (7.320-7.450) L 06/10/21 22:33 POC ABG pCO2 14.4 mmHg (32.0-48.0) L 06/10/21 22: POC ABG pO2 142.4 mmHg (83-108) H 06/10/21 22:33 POC ABG HCO3 3.7 06/10/21 22: ABG O2 Saturation 98.0 (0-100) 06/10/21 22: POC ABG Base Excess -25.3 06/10/21: ABG Hemoglobin 9.3 (12.0-17.5) L 06/10/21: ABG Oxyhemoglobin 97.6 (94-98) 06/10/21: ABG Methemoglobin 0.1 (0.0-1.5) 06/10/21: ABG Sodium 133.2 mmol/L (136.0-145.0) L 06/10/21: ABG Potassium 5.5 mmol/L (3.40-4.50) H 06/10/21: ABG Chloride 83.0 mmol/L (98-107) L 06/10/21: Carboxyhemoglobin 0.3 (0.5-1.5) L 06/10/21: FiO2 % 21.0 06/10/21: Sodium 131 mmol/L (137-145) L 06/11/21 00:08 Potassium 6.0 mmol/L (3.6-5.0) H 06/11/21 00:08 Chloride 72.6 mmol/L (98-107) L 06/11/21 00:08 Carbon Dioxide 2 mmol/L (22-30) L* 06/11/21 00:08 Anion Gap 62 mmol/L 06/11/21 00:08 BUN 61 mg/dL (9-20) H 06/11/21 00:08 Creatinine 3.9 mg/dL (0.8-1.3) H 06/11/21 00:08 Estimated GFR 19 ml/min 06/11/21 00:08 BUN/Creatinine Ratio 16 % 06/11/21 00:08 Glucose 1341 mg/dL (75-100) H* 06/11/21 00:08 POC Glucose > 600 mg/dL (70-105) H 06/10/21 21:59 Lactic Acid 13.90 mmol/L (0.7-2.0) H* 06/11/21 00:08 Calcium 8.7 mg/dL (8.4-10.2) 06/11/21 00:08 Phosphorus 17.20 mg/dL (2.5-4.5) H 06/11/21 00:08 Magnesium 3.10 mg/dL (1.7-2.3) H 06/11/21 00:08 Total Bilirubin 0.30 mg/dL (0.1-1.2) 06/10/21 22:57 Direct Bilirubin < 0.2 mg/dL (0-0.2) 06/10/21 22:57 Indirect Bilirubin 0.1 mg/dL 06/10/21 22:57 AST 75 units/L (5-40) H 06/10/21 22:57 ALT 44 units/L (7-56) 06/10/21 22:57 Alkaline Phosphatase 136 units/L (35-129) H 06/10/21 22:57 Ammonia 50.0 umol/L (25-60) 06/10/21 22:57 Total Creatine Kinase 437 units/L (55-170) H 06/10/21 22:57 Troponin T < 0.010 ng/mL (0.00-0.029) 06/10/21 22:57 Total Protein 6.2 g/dL (6.3-8.2) L 06/10/21 22:57 Albumin 4.0 g/dL (3.9-5) 06/10/21 22:57 Albumin/Globulin Ratio 1.8 % 06/10/21 22:57 Arterial Blood Ionized Calcium 4.9 mg/dL (4.6-5.3) 06/10/21 22:33 Plasma/Serum Alcohol < 0.01 % (0-0.07) 06/10/21 22:57 - Imaging and Cardiology Chest x-ray: report reviewed Assessment and Plan VTE prophylaxis?: Chemical Plan of care discussed with patient/family: Yes - Patient Problems (1) DKA, type 1 Current Visit: Yes Status: Acute Plan to address problem: Admit the patient to the critical care unit. Put the patient on DKA pathway. IV fluid half-normal saline at the rate of 150 cc/h. Insulin drip as per protocol. We will do the serial BMP. Reconsult critical care evaluation and diabetic education. Recheck CBC BMP in the morning (2) Hyperkalemia Current Visit: No Status: Acute Plan to address problem: Patient already on IV fluid, insulin drip as per protocol and D50. We will also put the patient on bicarb drip. Monitor the potassium closely we will do the serial BMP (3) Acute kidney injury (CONG) with acute tubular necrosis (ATN) Current Visit: No Status: Acute Plan to address problem: Avoid nephrotoxic drug. Renally dose medication. IV fluid half-normal saline at the rate of 150 cc/h. We consult nephrology for evaluation. Recheck BMP in the morning (4) Sepsis Current Visit: No Status: Acute Plan to address problem: IV fluid half-normal saline at the rate of 150 cc/h. Zosyn 4.5 g IV every 8 hours and vancomycin 1 g IV every 12 hours. Due to the blood culture and sputum culture. We will recheck CBC BMP in the morning (5) Arthritis Current Visit: Yes Status: Acute Plan to address problem: Stable. Tylenol 650 mg p.o. every 6 hours as needed. We will continue the home medication (6) DVT prophylaxis Current Visit: No Status: Acute Plan to address problem: Heparin 5000 units subcu every 8 hours for DVT prophylaxis. Pepcid 20 mg IV every 12 hours for GI prophylaxis. Patient is a full code
[2021-06-11] MEDS ORDERED: METOCLOPRAMIDE 10 MG TAB PO PRN (01:51)
[2021-06-11] MEDS ORDERED: CYCLOBENZAPRINE 10 MG TAB PO PRN (01:51)
[2021-06-11] MEDS ORDERED: SODIUM CHLORIDE 0.45% IV SCH (02:00)
[2021-06-11] MEDS ORDERED: PIPERACIL/TAZOBACTA 4.5/NS 100 4.5 GM/100 ML VIAL IV SCH (02:00)
[2021-06-11] MEDS ORDERED: SODIUM CHLORIDE 0.45% 1000 ML 1,000 ML IV SCH (02:00)
[2021-06-11] MEDS ORDERED: VANCOMYCIN/NS 1 GM/250 ML 1 GM/250 ML BAG IV SCH (02:00)
[2021-06-11] MEDS ORDERED: D5W/0.45% NACL/KCL 20 MEQ 20 MEQ/1,000 ML BAG IV SCH ×2 (02:00→15:00)
[2021-06-11] MEDS ORDERED: SODIUM BICARBONATE IV SCH (02:00)
[2021-06-11] MEDS ORDERED: PIPERACIL-TAZO 2.25 GM/50 ML 2.25 GM/50 ML BAG IV SCH (02:00)
[2021-06-11] MEDS ORDERED: INSULIN REGULAR, HUMAN 100 UNITS in SODIUM CHLORIDE 0.9% 99 ML IV SCH (02:00)
[2021-06-11] MEDS ORDERED: VANCOMYCIN PHARMACY TO DOSE IV SCH (02:00)
[2021-06-11] MEDS ORDERED: VANCOMYCIN 1,250 MG in SODIUM CHLORIDE 0.9% 250ML 250 ML IV ONE (03:00)
--- NOTE | 2021-06-11 05:55 | Cat Scan Report ---
. CT head without contrast INDICATION : Altered Mental Status. TECHNIQUE: Axial imaging performed from the skull apex through the skull base without the use of con trast. All CT scans at this location are performed using CT dose reduction for ALARA by means of aut omated exposure control. COMPARISON: None FINDINGS: Parenchyma: No acute intracranial hemorrhage or parenchymal abnormality. Ventricles: Ventricles are normal in size and appear symmetric. Soft tissues: Soft tissues including the orbits appear normal. Bones: No acute osseous abnormality. Sinuses: Sinuses and mastoid air cells are clear. IMPRESSION: No acute abnormality. Signer Name: Tyson Hill MD Signed: 06/11/2021 5:51 AM Workstation Name: [id number]
[2021-06-11] MEDS ORDERED: POTASSIUM CHLORIDE 10 MEQ 10 MEQ/100 ML BAG IV SCH (06:00)
[2021-06-11] MEDS ORDERED: CALCIUM GLUCONATE 1,000 MG in SODIUM CHLORIDE 0.9% 100 ML IV ONE (06:15)
[2021-06-11] MEDS: POTASSIUM CHLORIDE 10 MEQ 10 MEQ/100 ML BAG IV SCH ×4 (06:21→10:14)
[2021-06-11 06:51] LABS: Calcium 7.9 mg/dL (8.4-10.2)
[2021-06-11] MEDS ORDERED: SODIUM CHLORIDE 0.9% 1000 ML 1,000 ML ONE ×2 (07:57→12:51)
[2021-06-11 08:03] LABS: Amorphous Crystals,Urine Few; Bacteria,Urine 2+ /HPF (Negative); Bilirubin,Urine NEG (Negative); Blood,Urine MOD (Negative); Color,Urine Straw (Yellow); Hyaline Casts,Urine 2 /LPF; Mucus,Urine FEW /HPF; Urobilinogen,Urine < 2.0 mg/dL (<2.0)
[2021-06-11 08:07] LABS: Amphetamine Screen,Urine Negative; Benzodiazepines Screen,Urine Negative; Cannabinoid Screen,Urine Negative; Cocaine Screen,Urine Negative; Methadone Screen,Urine Negative; Opiate Screen,Urine Negative
[2021-06-11] MEDS: IPRATROPIUM/ALBUTEROL SULFATE 3 ML AMPUL.NEB IH SCH ×2 (08:19→15:23)
[2021-06-11] MEDS: SUCRALFATE 1 GM/10 ML ORAL LIQD PO SCH ×4 (08:24→22:10)
--- NOTE | 2021-06-11 08:47 | Progress Note ---
Assessment and Plan Assessment and plan: History of present illness: 61 years old male with history of insulin-dependent diabetes mellitus, noncompliant with his medication was brought to the emergency room via EMS from home after patient was found by his sister with altered mental status and a strong smell of acetone. EMS stated that patient found to be hypoxic with an oxygen saturation initially of 70% that improved to 95% on a nonrebreather. Patient have to be restrained due to significant altered mental status. Patient is moving all extremities. Dispo: Admit to ICU for DKA, CONG, and severe metabolic acidosis. Hospital Course: 06/11/2021: Continue IV fluids. Nephrology recommendations noted, agree with albumin at this time. Ordered Lawrence catheter for more accurate I/o's. PICC line ordered for access/possible pressors if patient blood pressure does not improve. Continue abx, if procal negative will d/c. Assessment and Plan: # Diabetic Ketoacidosis in Type 1 Diabetic B , A, Bicarb 4, pH: , LA: 13.10 Fluid management and insulin gtt per DKA protocol serial BMP. Trend BG, GAP diabetic education. CCM consulted # Severe Metabolic acidosis secondary to DKA Bicarb 4 on admission, VBG pH: 7.0 started on bicarbonate gtt Monitor bicarb on serial bmp # Hyperkalemia Patient already on IV fluid, insulin drip as per protocol and D50. Should correct as DKA improves. bicarb drip initiated. Monitor K on serial BMP #Hypernatremia correction with IVF and DKA protocol. # Acute kidney injury (CONG) with acute tubular necrosis (ATN) CR: 3.6, BUN : 59, had CKD3 based on prior records Avoid nephrotoxic agents Renally dose medication. IV fluid half-normal saline at the rate of 150 cc/h. Ordered lawrence for accurate I/O's. consult nephrology: recommends urine studies, renal US. 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 Albumin for low BP Follow kidney function on renal profile # Macrocytic Anemia Hgb: 8.9 Epogen 20,000 X 1 SQ for ACD, check Iron panel Check PTH for signs of 2HPT signalling CKD # Sepsis POA Unclear source, elevated WBC, LA Empiric Cefepime 1 g IV every 8 hours and vancomycin 1 g IV every 12 hours initiated on admission blood culture and sputum culture ordered procalcitonin ordered, can d/c abx if normal Low BP, could be intravascular depletion from DKA vs Sepsis. May require pressors. PICC line ordered # Type 1 Diabetes with Hyperglycemia home regimen: Levemir 15 units subq daily and novolin on SSI ordered hemoglobin a1c management per DKA protocol at this time, will transition to subcutaneous insulin once gap closes/dka resolves. # Arthritis Stable. Tylenol 650 mg p.o. every 6 hours as needed. # DVT prophylaxis Heparin 5000 units subcu every 8 hours for DVT prophylaxis. Pepcid 20 mg IV every 12 hours for GI prophylaxis. Patient is a full code The high probability of a clinically significant, sudden or life threatening deterioration of the [multi] system(s) required my full and direct attention, intervention and personal management. The aggregate critical care time was [60] minutes. This time is in addition to time spent performing reported procedures but includes the following: [x] Data Review and interpretation [x] Patient assessment and monitoring of vital signs [x] Documentation [x] Medication orders and management History Interval history: Resting comfortably on encounter. Pateint still appears very dehydrated. Blood pressures soft 87/53 on encounter. Patient denied any dizziness. Per RN patient urine output appears to decreasing however difficult to tell as patient does not have Lawrence catheter. Patient is status post 4 L IV fluids. Patient states that he uses Levemir and Novolin. He uses utilizes Levemir 15 units subcu daily and Novolin on sliding scale. Hospitalist Physical - Physical exam Narrative exam: Physical Exam: VITAL SIGNS: Reviewed. GENERAL: The patient appears normally developed, Vital signs as documented. HEAD: No signs of head trauma. EYES: Pupils are equal. Extraocular motions intact. EARS: Hearing grossly intact. MOUTH: Oropharynx is normal. NECK: No adenopathy, no JVD. CHEST: Chest with clear breath sounds bilaterally. No wheezes, rales, or rhonchi. CARDIAC: Regular rate and rhythm. S1 and S2, without murmurs, gallops, or rubs. VASCULAR: No Edema. Peripheral pulses normal and equal in all extremities. ABDOMEN: Soft, non tender and non distended. No rebound or guarding, and no masses palpated. Bowel Sounds normal. MUSCULOSKELETAL: Good range of motion of all major joints. Extremities without clubbing, cyanosis or edema. NEUROLOGIC EXAM: Alert and oriented x 4. no focal sensory or strength deficits. PSYCHIATRIC: Mood normal. SKIN: detail exam as documented in skin assessment - Constitutional Vitals: Temp Pulse Resp BP Pulse Ox 97.5 F L 77 20 96/43 98 06/11/21 02:00 06/11/21 04:48 06/11/21 04:48 06/11/21 04:48 06/11/21 04:48 General appearance: Present: severe distress, cachectic HEART Score - HEART Score Troponin: Troponin T < 0.010 ng/mL (0.00-0.029) 06/10/21 22:57 Results - Labs CBC & Chem 7: 06/10/21 22:57 06/11/21 10:00 Labs: Laboratory Last Values WBC 17.5 K/mm3 (4.5-11.0) H 06/10/21 22:57 RBC 2.64 M/mm3 (3.65-5.03) L 06/10/21 22:57 Hgb 8.9 gm/dl (11.8-15.2) L 06/10/21 22:57 Hct 31.1 % (35.5-45.6) L 06/10/21 22:57 MCV 118 fl (84-94) H 06/10/21 22:57 MCH 34 pg (28-32) H 06/10/21 22:57 MCHC 29 % (32-34) L 06/10/21 22:57 RDW 17.9 % (13.2-15.2) H 06/10/21 22:57 Plt Count 178 K/mm3 (140-440) 06/10/21 22:57 Add Manual Diff Complete 06/10/21 22:57 Total Counted 100 06/10/21 22:57 Seg Neuts % (Manual) 90.0 % (40.0-70.0) H 06/10/21 22:57 Band Neutrophils % 0 % 06/10/21 22:57 Lymphocytes % (Manual) 4.0 % (13.4-35.0) L 06/10/21 22:57 Reactive Lymphs % (Man) 0 % 06/10/21 22:57 Monocytes % (Manual) 6.0 % (0.0-7.3) 06/10/21 22:57 Eosinophils % (Manual) 0 % (0.0-4.3) 06/10/21 22:57 Basophils % (Manual) 0 % (0.0-1.8) 06/10/21 22:57 Metamyelocytes % 0 % 06/10/21 22:57 Myelocytes % 0 % 06/10/21 22:57 Promyelocytes % 0 % 06/10/21 22:57 Blast Cells % 0 % 06/10/21 22:57 Nucleated RBC % Not Reportable 06/10/21 22:57 Seg Neutrophils # Man 15.8 K/mm3 (1.8-7.7) H 06/10/21 22:57 Band Neutrophils # 0.0 K/mm3 06/10/21 22:57 Lymphocytes # (Manual) 0.7 K/mm3 (1.2-5.4) L 06/10/21 22:57 Abs React Lymphs (Man) 0.0 K/mm3 06/10/21 22:57 Monocytes # (Manual) 1.1 K/mm3 (0.0-0.8) H 06/10/21 22:57 Eosinophils # (Manual) 0.0 K/mm3 (0.0-0.4) 06/10/21 22:57 Basophils # (Manual) 0.0 K/mm3 (0.0-0.1) 06/10/21 22:57 Metamyelocytes # 0.0 K/mm3 06/10/21 22:57 Myelocytes # 0.0 K/mm3 06/10/21 22:57 Promyelocytes # 0.0 K/mm3 06/10/21 22:57 Blast Cells # 0.0 K/mm3 06/10/21 22:57 WBC Morphology Not Reportable 06/10/21 22:57 Hypersegmented Neuts Not Reportable 06/10/21 22:57 Hyposegmented Neuts Not Reportable 06/10/21 22:57 Hypogranular Neuts Not Reportable 06/10/21 22:57 Smudge Cells Not Reportable 06/10/21 22:57 Toxic Granulation Not Reportable 06/10/21 22:57 Toxic Vacuolation Not Reportable 06/10/21 22:57 Dohle Bodies Not Reportable 06/10/21 22:57 Pelger-Huet Anomaly Not Reportable 06/10/21 22:57 Chinyere Rods Not Reportable 06/10/21 22:57 Platelet Estimate Not Reportable 06/10/21 22:57 Clumped Platelets Not Reportable 06/10/21 22:57 Plt Clumps, EDTA Not Reportable 06/10/21 22:57 Large Platelets Not Reportable 06/10/21 22:57 Giant Platelets Not Reportable 06/10/21 22:57 Platelet Satelliting Not Reportable 06/10/21 22:57 Plt Morphology Comment Not Reportable 06/10/21 22:57 RBC Morphology Not Reportable 06/10/21 22:57 Dimorphic RBCs Not Reportable 06/10/21 22:57 Polychromasia Not Reportable 06/10/21 22:57 Hypochromasia Not Reportable 06/10/21 22:57 Poikilocytosis Not Reportable 06/10/21 22:57 Anisocytosis Rare 06/10/21 22:57 Microcytosis Not Reportable 06/10/21 22:57 Macrocytosis 1+ 06/10/21 22:57 Spherocytes Not Reportable 06/10/21 22:57 Pappenheimer Bodies Not Reportable 06/10/21 22:57 Sickle Cells Not Reportable 06/10/21 22:57 Target Cells Not Reportable 06/10/21 22:57 Tear Drop Cells Not Reportable 06/10/21 22:57 Ovalocytes Not Reportable 06/10/21 22:57 Helmet Cells Not Reportable 06/10/21 22:57 [place] Bar Bodies Not Reportable 06/10/21 22:57 [place] Rings Not Reportable 06/10/21 22:57 [place] Cells Not Reportable 06/10/21 22:57 Bite Cells Not Reportable 06/10/21 22:57 Crenated Cell Not Reportable 06/10/21 22:57 Elliptocytes Not Reportable 06/10/21 22:57 Acanthocytes (Spur) Not Reportable 06/10/21 22:57 Rouleaux Not Reportable 06/10/21 22:57 Hemoglobin C Crystals Not Reportable 06/10/21 22:57 Schistocytes Not Reportable 06/10/21 22:57 Malaria parasites Not Reportable 06/10/21 22:57 Jerry Bodies Not Reportable 06/10/21 22:57 Hem Pathologist Commnt No 06/10/21 22:57 PT 14.4 Sec. (12.2-14.9) 06/10/21 22:57 INR 1.01 (0.87-1.13) 06/10/21 22:57 APTT 29.1 Sec. (24.2-36.6) 06/10/21 22:57 ABG pH 7.022 (7.320-7.450) L 06/10/21 22:33 POC ABG pCO2 14.4 mmHg (32.0-48.0) L 06/10/21 22:33 POC ABG pO2 142.4 mmHg (83-108) H 06/10/21 22:33 POC ABG HCO3 3.7 06/10/21 22:33 ABG O2 Saturation 98.0 (0-100) 06/10/21 22:33 POC ABG Base Excess -25.3 06/10/21 22:33 ABG Hemoglobin 9.3 (12.0-17.5) L 06/10/21 22:33 ABG Oxyhemoglobin 97.6 (94-98) 06/10/21 22:33 ABG Methemoglobin 0.1 (0.0-1.5) 06/10/21 22:33 ABG Sodium 133.2 mmol/L (136.0-145.0) L 06/10/21 22:33 ABG Potassium 5.5 mmol/L (3.40-4.50) H 06/10/21 22:33 ABG Chloride 83.0 mmol/L (98-107) L 06/10/21 22:33 Carboxyhemoglobin 0.3 (0.5-1.5) L 06/10/21 22:33 FiO2 % 21.0 06/10/21 22:33 Sodium 140 mmol/L (137-145) 06/11/21 05:59 Potassium 4.0 mmol/L (3.6-5.0) D 06/11/21 05:59 Chloride 90.3 mmol/L (98-107) L 06/11/21 05:59 Carbon Dioxide 6 mmol/L (22-30) L* 06/11/21 05:59 Anion Gap 48 mmol/L 06/11/21 05:59 BUN 58 mg/dL (9-20) H 06/11/21 05:59 Creatinine 4.1 mg/dL (0.8-1.3) H D 06/11/21 05:59 Estimated GFR 18 ml/min 06/11/21 05:59 BUN/Creatinine Ratio 14 % 06/11/21 05:59 Glucose 1103 mg/dL (75-100) H* 06/11/21 05:59 POC Glucose > 600 mg/dL (70-105) H 06/11/21 02:52 Lactic Acid 9.70 mmol/L (0.7-2.0) H* 06/11/21 05:59 Calcium 7.9 mg/dL (8.4-10.2) L D 06/11/21 05:59 Phosphorus 16.20 mg/dL (2.5-4.5) H 06/11/21 02:07 Magnesium 3.20 mg/dL (1.7-2.3) H 06/11/21 02:07 Total Bilirubin 0.30 mg/dL (0.1-1.2) 06/10/21 22:57 Direct Bilirubin < 0.2 mg/dL (0-0.2) 06/10/21 22:57 Indirect Bilirubin 0.1 mg/dL 06/10/21 22:57 AST 75 units/L (5-40) H 06/10/21 22:57 ALT 44 units/L (7-56) 06/10/21 22:57 Alkaline Phosphatase 136 units/L (35-129) H 06/10/21 22:57 Ammonia 50.0 umol/L (25-60) 06/10/21 22:57 Total Creatine Kinase 437 units/L (55-170) H 06/10/21 22:57 Troponin T < 0.010 ng/mL (0.00-0.029) 06/10/21 22:57 Total Protein 6.2 g/dL (6.3-8.2) L 06/10/21 22:57 Albumin 4.0 g/dL (3.9-5) 06/10/21 22:57 Albumin/Globulin Ratio 1.8 % 06/10/21 22:57 Arterial Blood Ionized Calcium 4.9 mg/dL (4.6-5.3) 06/10/21 22:33 Urine Color Straw (Yellow) 06/11/21 07:48 Urine Turbidity Clear (Clear) 06/11/21 07:48 Urine pH 5.0 (5.0-7.0) 06/11/21 07:48 Ur Specific [place] 1.018 (1.003-1.030) 06/11/21 07:48 Urine Protein 30 mg/dl mg/dL (Negative) 06/11/21 07:48 Urine Glucose (UA) >=500 mg/dL (Negative) 06/11/21 07:48 Urine Ketones 20 mg/dL (Negative) 06/11/21 07:48 Urine Blood Mod (Negative) 06/11/21 07:48 Urine Nitrite Neg (Negative) 06/11/21 07:48 Urine Bilirubin Neg (Negative) 06/11/21 07:48 Urine Urobilinogen < 2.0 mg/dL (<2.0) 06/11/21 07:48 Ur Leukocyte Esterase Neg (Negative) 06/11/21 07:48 Urine WBC (Auto) 1.0 /HPF (0.0-6.0) 06/11/21 07:48 Urine RBC (Auto) 14.0 /HPF (0.0-6.0) 06/11/21 07:48 U Epithel Cells (Auto) 2.0 /HPF (0-13.0) 06/11/21 07:48 Urine Bacteria (Auto) 2+ /HPF (Negative) 06/11/21 07:48 Amorphous Crystals Few 06/11/21 07:48 Hyaline Casts 2 /LPF 06/11/21 07:48 Urine Mucus Few /HPF 06/11/21 07:48 Urine Opiates Screen Negative 06/11/21 07:48 Urine Methadone Screen Negative 06/11/21 07:48 Ur Barbiturates Screen Negative 06/11/21 07:48 Ur Phencyclidine Scrn Negative 06/11/21 07:48 Ur Amphetamines Screen Negative 06/11/21 07:48 U Benzodiazepines Scrn Negative 06/11/21 07:48 Urine Cocaine Screen Negative 06/11/21 07:48 U Marijuana (THC) Screen Negative 06/11/21 07:48 Drugs of Abuse Note Disclamer 06/11/21 07:48 Plasma/Serum Alcohol < 0.01 % (0-0.07) 06/10/21 22:57 Microbiology: Microbiology 06/10/21 22:57 Peripheral/Venous Blood Culture - Preliminary Culture in Progress 06/10/21 23:38 Peripheral/Venous Blood Culture - Preliminary Culture in Progress Active Medications - Current Medications Current Medications: Generic Name Dose Route Start Last Admin Trade Name Freq PRN Reason Stop Dose Admin Acetaminophen 650 mg 06/11/21 01:35 Acetaminophen 325 Mg Tab PO Q4H PRN Pain MILD(1-3)/Fever >100.5/JAVIER Albuterol 2.5 mg 06/11/21 01:35 Albuterol 2.5 Mg/3 Ml Nebu IH Q4HRT PRN Shortness Of Breath Albuterol/Ipratropium 1 ampul 06/11/21 02:00 06/11/21 08:19 Ipratropium/Albuterol Sulfate 3 Ml Ampul.Neb IH Not Given Q6HRT ESTHER Cyclobenzaprine HCl 10 mg 06/11/21 01:51 Cyclobenzaprine 10 Mg Tab PO TID PRN Muscle Spasm Dextrose 0 ml 06/10/21 23:45 Dextrose 50% In Water (25gm) 50 Ml Syringe IV Q30MIN PRN Hypoglycemia Protocol Folic Acid 1 mg 06/11/21 10:00 Folic Acid 1 Mg Tab PO DAILY ESTHER Heparin Sodium (Porcine) 5,000 unit 06/11/21 10:00 Heparin 5,000 Unit/1 Ml Vial SUB-Q Q12HR ESTHER Hydromorphone HCl 0.5 mg 06/11/21 01:35 Hydromorphone 1 Mg/1 Ml Inj IV Q3H PRN Pain , Severe (7-10) Insulin Human Regular 100 100 mls @ 1 mls/hr 06/10/21 23:45 06/11/21 08:00 units/ Sodium Chloride IV 11 units/hr TITR ESTHER 11 mls/hr Titration Protocol 1 UNITS/HR Sodium Chloride 1,000 mls @ 150 mls/hr 06/11/21 02:00 Nacl 0.45% 1000 Ml IV DIRECT ESTHER Sodium Bicarbonate 50 meq/ 1,050 mls @ 100 mls/hr 06/11/21 02:00 06/11/21 03:15 Sodium Chloride IV 100 mls/hr DIRECT ESTHER Administration Potassium Chloride 10 meq in 100 mls @ 100 mls/hr 06/11/21 06:00 06/11/21 08:18 Kcl 10meq/100ml IV 06/11/21 09:59 100 mls/hr Q1H ESTHER Administration Cefepime HCl 2 gm in 100 mls @ 200 mls/hr 06/11/21 10:00 Cefepime/Ns 2 Gm/100 Ml IV Q24H [facility] Protocol Latanoprost 1 drops 06/11/21 22:00 Latanoprost 0.005% Ophth Soln 2.5 Ml OU QHS [facility] Metoclopramide HCl 5 mg 06/11/21 01:51 Metoclopramide 10 Mg Tab PO Q6H PRN Nausea And Vomiting Metoprolol Succinate 50 mg 06/11/21 10:00 Metoprolol Succinate Xl 50 Mg Tab PO QDAY [facility] Morphine Sulfate 2 mg 06/11/21 01:35 Morphine 2 Mg/1 Ml Inj IV Q4H PRN Pain, Moderate (4-6) Ondansetron HCl 4 mg 06/11/21 01:35 Ondansetron 4 Mg/2 Ml Inj IV Q8H PRN Nausea And Vomiting Pantoprazole Sodium 40 mg 06/11/21 10:00 Pantoprazole 40 Mg Inj IV QDAY [facility] Sodium Chloride 10 ml 06/11/21 10:00 Sodium Chloride 0.9% 10 Ml Flush Syringe IV BID [facility] Sodium Chloride 10 ml 06/11/21 01:35 Sodium Chloride 0.9% 10 Ml Flush Syringe IV PRN PRN LINE FLUSH Sucralfate 1 gm 06/11/21 07:30 06/11/21 08:24 Sucralfate 1 Gm/10 Ml Oral Liqd PO 1 gm ACHS [facility] Administration
[2021-06-11] MEDS ORDERED: TRAVOPROST OP SCH (10:00)
[2021-06-11] MEDS ORDERED: METOPROLOL SUCCINATE XL 50 MG TAB PO SCH (10:00)
[2021-06-11] MEDS ORDERED: FOLIC ACID 0.8 MG PO SCH (10:00)
[2021-06-11] MEDS ORDERED: FAMOTIDINE 20 MG/2 ML INJ IV SCH (10:00)
--- NOTE | 2021-06-11 10:16 | Electrocardiograph Report ---
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 Nonspecific intraventricular conduction delay No previous ECG available for comparison Electronically Signed On 06-11-2021 10:16:29 EST by Oliverio White
[2021-06-11 10:38] LABS: Calcium 7.8 mg/dL (8.4-10.2)
--- NOTE | 2021-06-11 10:40 | Consultation ---
History of Present Illness - Reason for Consult Consult date: 06/11/21 acute renal failure - History of Present Illness 61 year old M admitted with AMS along with hypoxia. Pt has been found to have DKA with increased anion gap metabolic acidosis and hyperglycemia. He also has renal failure. His Cr was running 1.6 to 2 in 2019 so he may have some CKD as well. He is currently on an insulin drip and bicarb drip as well. ROS: unable to obtain due to AMS Past History Past Medical History: arthritis, diabetes, renal failure Medications and Allergies Allergies Allergy/AdvReac Type Severity Reaction Status Date / Time Tetracyclines Allergy Swelling Verified 12/26/16 09:54 Home Medications Medication Instructions Recorded Confirmed Last Taken Type Stephane Cit/Mag/D3/Zn/Compound Filler/Wood/Bor 1 each PO QDAY 05/22/20 05/22/20 Unknown History [Citracal-D3 Plus Magnesium Tab] Cyanocobalamin (Vitamin B-12) 5,000 mcg PO QDAY 05/22/20 05/22/20 Unknown History [Vitamin B-12] Cyclobenzaprine [Flexeril 10 MG 10 mg PO TID PRN 05/22/20 05/22/20 Unknown History TAB] Folic Acid 0.8 mg PO QDAY 05/22/20 05/22/20 Unknown History Lisinopril [Zestril] 5 mg PO QDAY 05/22/20 05/22/20 Unknown History Lispro Insulin [HumaLOG] 0 unit SQ ACHS 05/22/20 05/22/20 Unknown History Melatonin [Melatonin 10MG TAB] 10 mg PO QHS 05/22/20 05/22/20 Unknown History Metoprolol Xl [Metoprolol 50 mg PO QDAY 05/22/20 05/22/20 Unknown History SUCCINATE ER TAB] Travoprost 2.5 ml OP QDAY 05/22/20 05/22/20 Unknown History Insulin Glargine [Lantus VIAL] 15 units SUB-Q QAM #10 ml 05/24/20 Unknown Rx Insulin Glargine [Lantus VIAL] 30 units SUB-Q QHS #10 ml 05/24/20 Unknown Rx Metoclopramide [Reglan TAB] 10 mg PO Q6H PRN #30 tablet 05/24/20 Unknown Rx Pantoprazole [Protonix] 40 mg PO QDAY #30 tablet 05/24/20 Unknown Rx Sucralfate [Carafate] 1 gm PO ACHS 30 Days 05/24/20 Unknown Rx Active Meds: Active Medications Acetaminophen (Acetaminophen 325 Mg Tab) 650 mg PO Q4H PRN PRN Reason: Pain MILD(1-3)/Fever >100.5/JAVIER Albuterol (Albuterol 2.5 Mg/3 Ml Nebu) 2.5 mg IH Q4HRT PRN PRN Reason: Shortness Of Breath Albuterol/Ipratropium (Ipratropium/Albuterol Sulfate 3 Ml Ampul.Neb) 1 ampul IH Q6HRT [facility] Last Admin: 06/11/21 08:19 Dose: Not Given Cyclobenzaprine HCl (Cyclobenzaprine 10 Mg Tab) 10 mg PO TID PRN PRN Reason: Muscle Spasm Dextrose (Dextrose 50% In Water (25gm) 50 Ml Syringe) 0 ml IV Q30MIN PRN; Tae col PRN Reason: Hypoglycemia Folic Acid (Folic Acid 1 Mg Tab) 1 mg PO DAILY [facility] Heparin Sodium (Porcine) (Heparin 5,000 Unit/1 Ml Vial) 5,000 unit SUB-Q Q12HR ESTHER Hydromorphone HCl (Hydromorphone 1 Mg/1 Ml Inj) 0.5 mg IV Q3H PRN PRN Reason: Pain , Severe (7-10) Insulin Human Regular 100 (units/ Sodium Chloride) 100 mls @ 1 mls/hr IV TITR ESTEHR; Protocol Last Titration: 06/11/21 08:00 Dose: 11 units/hr, 11 mls/hr Sodium Chloride (Nacl 0.45% 1000 Ml) 1,000 mls @ 150 mls/hr IV DIRECT ESTHER Sodium Bicarbonate 50 meq/ (Sodium Chloride) 1,050 mls @ 100 mls/hr IV DIRECT ESTHER Last Admin: 06/11/21 03:15 Dose: 100 mls/hr Cefepime HCl (Cefepime/Ns 2 Gm/100 Ml) 2 gm in 100 mls @ 200 mls/hr IV Q24H ESTHER; Protocol Latanoprost (Latanoprost 0.005% Ophth Soln 2.5 Ml) 1 drops OU QHS ESTHER Metoclopramide HCl (Metoclopramide 10 Mg Tab) 5 mg PO Q6H PRN PRN Reason: Nausea And Vomiting Metoprolol Succinate (Metoprolol Succinate Xl 50 Mg Tab) 50 mg PO QDAY [facility] Last Admin: 06/11/21 10:22 Dose: Not Given Morphine Sulfate (Morphine 2 Mg/1 Ml Inj) 2 mg IV Q4H PRN PRN Reason: Pain, Moderate (4-6) Ondansetron HCl (Ondansetron 4 Mg/2 Ml Inj) 4 mg IV Q8H PRN PRN Reason: Nausea And Vomiting Pantoprazole Sodium (Pantoprazole 40 Mg Inj) 40 mg IV QDAY [facility] Sodium Chloride (Sodium Chloride 0.9% 10 Ml Flush Syringe) 10 ml IV BID [facility] Last Admin: 06/11/21 10:15 Dose: 10 ml Sodium Chloride (Sodium Chloride 0.9% 10 Ml Flush Syringe) 10 ml IV PRN PRN PRN Reason: LINE FLUSH Sucralfate (Sucralfate 1 Gm/10 Ml Oral Liqd) 1 gm PO ACHS [facility] Last Admin: 06/11/21 08:24 Dose: 1 gm Exam - Vital Signs Vital signs: Vital Signs Pulse Resp BP Pulse Ox 150 H 20 104/49 90 06/11/21 01:01 06/11/21 01:01 06/11/21 01:01 06/11/21 01:01 - Physical Exam Narrative exam: General appearance: Present: severe distress, cachectic - EENT Eyes: Present: PERRL ENT: hearing intact, clear oral mucosa - Neck Neck: Present: supple, normal ROM - Respiratory Respiratory effort: normal Respiratory: bilateral: diminished - Cardiovascular Heart Sounds: Present: S1 & S2. Absent: rub, click - Extremities Extremities: pulses symmetrical, No edema Peripheral Pulses: within normal limits - Abdominal General gastrointestinal: Present: soft, non-tender, non-distended, normal bowel sounds Male genitourinary: Present: normal - Integumentary Integumentary: Present: clear, warm, dry - Musculoskeletal Musculoskeletal: gait normal, strength equal bilaterally - Psychiatric Psychiatric: Altered - Neurologic Neurologic: CNII-XII intact, moves all extremities Results - Lab Results 06/10/21 22:57 06/11/21 10:00 Most recent lab results ABG pH 7.022 (7.320-7.450) L 06/10/21 22:33 ABG O2 Saturation 98.0 (0-100) 06/10/21 22:33 Calcium 7.8 mg/dL (8.4-10.2) L 06/11/21 10:00 Phosphorus 16.20 mg/dL (2.5-4.5) H 06/11/21 02:07 Magnesium 3.20 mg/dL (1.7-2.3) H 06/11/21 02:07 Assessment and Plan DKA, type 1 Hyperkalemia Acute kidney injury (CONG) with acute tubular necrosis (ATN) on top of CKD Sepsis due to unknown cause Arthritis High anion gap metabolic acidosis Anemia -Check Urine studies, CK level -Continue bicarb drip and insulin drip, bicarb improving, change bicarb drip to D5W with 100 meq of Sodium bicarb at 125 mls/hr -Check Renal US -No acute ROASTMASTER indication right -K better -has hypernatremia if Na corrected for high glucose, continue IVFs -Epogen 20,000 X 1 SQ for ACD, check Iron panel -Check PTH for signs of 2HPT signalling CKD -Renally dose all meds -Avoid Nephrotoxic meds -Check Phos level -May need pressors for low BP, give albumin q6H X 3 doses to boast up BP, hold MTP, start midodrine as well. -On Abx for Sepsis. Willie Mathews MD [phone]
[2021-06-11] MEDS ORDERED: EPOETIN ALFA-EPBX 20,000 UNIT/1 ML VIAL SUB-Q PRN (12:00)
[2021-06-11] MEDS: CEFEPIME/NS 2 GM/100 ML 2 GM/100 ML BAG IV SCH (12:24)
[2021-06-11] MEDS: PANTOPRAZOLE 40 MG INJ IV SCH (12:25)
[2021-06-11] MEDS: FOLIC ACID 1 MG TAB PO SCH (12:25)
[2021-06-11] MEDS: ALBUMIN HUMAN 25% (25 GM/100 ML) INJ IV SCH ×2 (12:27→21:27)
[2021-06-11] MEDS: MIDODRINE 5 MG TAB PO SCH ×2 (12:28→17:43)
[2021-06-11] MEDS: HEPARIN 5,000 UNIT/1 ML VIAL SUB-Q SCH ×2 (13:16→23:28)
--- NOTE | 2021-06-11 14:19 | Consultation ---
History of Present Illness - Reason for Consult Consult date: 06/11/21 DKA Past History Past Medical History: arthritis, diabetes, renal failure Medications and Allergies Allergies Allergy/AdvReac Type Severity Reaction Status Date / Time Tetracyclines Allergy Swelling Verified 12/26/16 09:54 Home Medications Medication Instructions Recorded Confirmed Last Taken Type Stephane Cit/Mag/D3/Zn/Wool Grower/Wood/Bor 1 each PO QDAY 05/22/20 05/22/20 Unknown History [Citracal-D3 Plus Magnesium Tab] Cyanocobalamin (Vitamin B-12) 5,000 mcg PO QDAY 05/22/20 05/22/20 Unknown History [Vitamin B-12] Cyclobenzaprine [Flexeril 10 MG 10 mg PO TID PRN 05/22/20 05/22/20 Unknown History TAB] Folic Acid 0.8 mg PO QDAY 05/22/20 05/22/20 Unknown History Lisinopril [Zestril] 5 mg PO QDAY 05/22/20 05/22/20 Unknown History Lispro Insulin [HumaLOG] 0 unit SQ ACHS 05/22/20 05/22/20 Unknown History Melatonin [Melatonin 10MG TAB] 10 mg PO QHS 05/22/20 05/22/20 Unknown History Metoprolol Xl [Metoprolol 50 mg PO QDAY 05/22/20 05/22/20 Unknown History SUCCINATE ER TAB] Travoprost 2.5 ml OP QDAY 05/22/20 05/22/20 Unknown History Insulin Glargine [Lantus VIAL] 15 units SUB-Q QAM #10 ml 05/24/20 Unknown Rx Insulin Glargine [Lantus VIAL] 30 units SUB-Q QHS #10 ml 05/24/20 Unknown Rx Metoclopramide [Reglan TAB] 10 mg PO Q6H PRN #30 tablet 05/24/20 Unknown Rx Pantoprazole [Protonix] 40 mg PO QDAY #30 tablet 05/24/20 Unknown Rx Sucralfate [Carafate] 1 gm PO ACHS 30 Days 05/24/20 Unknown Rx Active Meds: Active Medications Acetaminophen (Acetaminophen 325 Mg Tab) 650 mg PO Q4H PRN PRN Reason: Pain MILD(1-3)/Fever >100.5/JAVIER Albumin Human (Albumin Human 25% (25 Gm/100 Ml) Inj) 25 gm IV Q6H [facility] Stop: 06/12/21 00:01 Last Admin: 06/11/21 12:27 Dose: 25 gm Albuterol (Albuterol 2.5 Mg/3 Ml Nebu) 2.5 mg IH Q4HRT PRN PRN Reason: Shortness Of Breath Albuterol/Ipratropium (Ipratropium/Albuterol Sulfate 3 Ml Ampul.Neb) 1 ampul IH Q6HRT [facility] Last Admin: 06/11/21 08:19 Dose: Not Given Cyclobenzaprine HCl (Cyclobenzaprine 10 Mg Tab) 10 mg PO TID PRN PRN Reason: Muscle Spasm Dextrose (Dextrose 50% In Water (25gm) 50 Ml Syringe) 0 ml IV Q30MIN PRN; Protocol PRN Reason: Hypoglycemia Folic Acid (Folic Acid 1 Mg Tab) 1 mg PO DAILY [facility] Last Admin: 06/11/21 12:25 Dose: 1 mg Heparin Sodium (Porcine) (Heparin 5,000 Unit/1 Ml Vial) 5,000 unit SUB-Q Q12HR [facility] Last Admin: 06/11/21 13:16 Dose: 5,000 unit Hydromorphone HCl (Hydromorphone 1 Mg/1 Ml Inj) 0.5 mg IV Q3H PRN PRN Reason: Pain , Severe (7-10) Insulin Human Regular 100 (units/ Sodium Chloride) 100 mls @ 1 mls/hr IV TITR [facility]; Protocol Last Admin: 06/11/21 13:23 Dose: 5 units/hr, 5 mls/hr Cefepime HCl (Cefepime/Ns 2 Gm/100 Ml) 2 gm in 100 mls @ 200 mls/hr IV Q24H [facility]; Protocol Last Admin: 06/11/21 12:24 Dose: 200 mls/hr Sodium Bicarbonate 100 meq/ (Dextrose) 1,100 mls @ 125 mls/hr IV DIRECT [facility] Latanoprost (Latanoprost 0.005% Ophth Soln 2.5 Ml) 1 drops OU QHS [facility] Metoclopramide HCl (Metoclopramide 10 Mg Tab) 5 mg PO Q6H PRN PRN Reason: Nausea And Vomiting Midodrine (Midodrine 5 Mg Tab) 10 mg PO TID@0800,1200,1600 [facility] Last Admin: 06/11/21 12:28 Dose: 10 mg Morphine Sulfate (Morphine 2 Mg/1 Ml Inj) 2 mg IV Q4H PRN PRN Reason: Pain, Moderate (4-6) Ondansetron HCl (Ondansetron 4 Mg/2 Ml Inj) 4 mg IV Q8H PRN PRN Reason: Nausea And Vomiting Pantoprazole Sodium (Pantoprazole 40 Mg Inj) 40 mg IV QDAY [facility] Last Admin: 06/11/21 12:25 Dose: 40 mg Sodium Chloride (Sodium Chloride 0.9% 10 Ml Flush Syringe) 10 ml IV BID [facility] Last Admin: 06/11/21 10:15 Dose: 10 ml Sodium Chloride (Sodium Chloride 0.9% 10 Ml Flush Syringe) 10 ml IV PRN PRN PRN Reason: LINE FLUSH Sucralfate (Sucralfate 1 Gm/10 Ml Oral Liqd) 1 gm PO ACHS [facility] Last Admin: 06/11/21 12:26 Dose: 1 gm Exam - Constitutional Vitals: Temp Pulse Resp BP Pulse Ox 97.5 F L 83 26 H 97/57 100 06/11/21 02:00 06/11/21 13:31 06/11/21 13:31 06/11/21 13:31 06/11/21 13:31 Results - Labs CBC & Chem 7: 06/10/21 22:57 06/11/21 10:00 Labs: Abnormal lab results 06/10/21 06/10/21 06/10/21 Range/Units 21:59 22:33 22:57 WBC 17.5 H (4.5-11.0) K/mm3 RBC 2.64 L (3.65-5.03) M/mm3 Hgb 8.9 L (11.8-15.2) gm/dl Hct 31.1 L (35.5-45.6) % MCV 118 H (84-94) fl MCH 34 H (28-32) pg MCHC 29 L (32-34) % RDW 17.9 H (13.2-15.2) % Seg Neuts % (Manual) 90.0 H (40.0-70.0) % Lymphocytes % (Manual) 4.0 L (13.4-35.0) % Seg Neutrophils # Man 15.8 H (1.8-7.7) K/mm3 Lymphocytes # (Manual) 0.7 L (1.2-5.4) K/mm3 Monocytes # (Manual) 1.1 H (0.0-0.8) K/mm3 ABG pH 7.022 L (7.320-7.450) POC ABG pCO2 14.4 L (32.0-48.0) mmHg POC ABG pO2 142.4 H (83-108) mmHg ABG Hemoglobin 9.3 L (12.0-17.5) ABG Sodium 133.2 L (136.0-145.0) mmol/L ABG Potassium 5.5 H (3.40-4.50) mmol/L ABG Chloride 83.0 L (98-107) mmol/L Carboxyhemoglobin 0.3 L (0.5-1.5) Sodium (137-145) mmol/L Potassium (3.6-5.0) mmol/L Chloride (98-107) mmol/L Carbon Dioxide (22-30) mmol/L BUN (9-20) mg/dL Creatinine (0.8-1.3) mg/dL Glucose (75-100) mg/dL POC Glucose > 600 H (70-105) mg/dL Lactic Acid (0.7-2.0) mmol/L Calcium (8.4-10.2) mg/dL Phosphorus (2.5-4.5) mg/dL Magnesium (1.7-2.3) mg/dL Iron (49-181) ug/dL TIBC (250-450) mcg/dL AST (5-40) units/L Alkaline Phosphatase (35-129) units/L Total Creatine Kinase (55-170) units/L Total Protein (6.3-8.2) g/dL PTH Intact (15-65) pg/mL 06/10/21 06/10/21 06/10/21 Range/Units 22:57 22:57 22:57 WBC (4.5-11.0) K/mm3 RBC (3.65-5.03) M/mm3 Hgb (11.8-15.2) gm/dl Hct (35.5-45.6) % MCV (84-94) fl MCH (28-32) pg MCHC (32-34) % RDW (13.2-15.2) % Seg Neuts % (Manual) (40.0-70.0) % Lymphocytes % (Manual) (13.4-35.0) % Seg Neutrophils # Man (1.8-7.7) K/mm3 Lymphocytes # (Manual) (1.2-5.4) K/mm3 Monocytes # (Manual) (0.0-0.8) K/mm3 ABG pH (7.320-7.450) POC ABG pCO2 (32.0-48.0) mmHg POC ABG pO2 (83-108) mmHg ABG Hemoglobin (12.0-17.5) ABG Sodium (136.0-145.0) mmol/L ABG Potassium (3.40-4.50) mmol/L ABG Chloride (98-107) mmol/L Carboxyhemoglobin (0.5-1.5) Sodium 132 L (137-145) mmol/L Potassium 5.6 H (3.6-5.0) mmol/L Chloride 74.0 L (98-107) mmol/L Carbon Dioxide 4 L* (22-30) mmol/L BUN 59 H (9-20) mg/dL Creatinine 3.6 H (0.8-1.3) mg/dL Glucose 1089 H* (75-100) mg/dL POC Glucose (70-105) mg/dL Lactic Acid 13.10 H* (0.7-2.0) mmol/L Calcium (8.4-10.2) mg/dL Phosphorus (2.5-4.5) mg/dL Magnesium (1.7-2.3) mg/dL Iron (49-181) ug/dL TIBC (250-450) mcg/dL AST 75 H (5-40) units/L Alkaline Phosphatase 136 H (35-129) units/L Total Creatine Kinase 437 H (55-170) units/L Total Protein 6.2 L (6.3-8.2) g/dL PTH Intact (15-65) pg/mL 06/11/21 06/11/21 06/11/21 Range/Units 00:08 00:08 00:08 WBC (4.5-11.0) K/mm3 RBC (3.65-5.03) M/mm3 Hgb (11.8-15.2) gm/dl Hct (35.5-45.6) % MCV (84-94) fl MCH (28-32) pg MCHC (32-34) % RDW (13.2-15.2) % Seg Neuts % (Manual) (40.0-70.0) % Lymphocytes % (Manual) (13.4-35.0) % Seg Neutrophils # Man (1.8-7.7) K/mm3 Lymphocytes # (Manual) (1.2-5.4) K/mm3 Monocytes # (Manual) (0.0-0.8) K/mm3 ABG pH (7.320-7.450) POC ABG pCO2 (32.0-48.0) mmHg POC ABG pO2 (83-108) mmHg ABG Hemoglobin (12.0-17.5) ABG Sodium (136.0-145.0) mmol/L ABG Potassium (3.40-4.50) mmol/L ABG Chloride (98-107) mmol/L Carboxyhemoglobin (0.5-1.5) Sodium 131 L (137-145) mmol/L Potassium 6.0 H (3.6-5.0) mmol/L Chloride 72.6 L (98-107) mmol/L Carbon Dioxide 2 L* (22-30) mmol/L BUN 61 H (9-20) mg/dL Creatinine 3.9 H (0.8-1.3) mg/dL Glucose 1341 H* (75-100) mg/dL POC Glucose (70-105) mg/dL Lactic Acid 13.90 H* (0.7-2.0) mmol/L Calcium (8.4-10.2) mg/dL Phosphorus 17.20 H (2.5-4.5) mg/dL Magnesium 3.10 H (1.7-2.3) mg/dL Iron (49-181) ug/dL TIBC (250-450) mcg/dL AST (5-40) units/L Alkaline Phosphatase (35-129) units/L Total Creatine Kinase (55-170) units/L Total Protein (6.3-8.2) g/dL PTH Intact (15-65) pg/mL 06/11/21 06/11/21 06/11/21 Range/Units 02:07 02:07 02:07 WBC (4.5-11.0) K/mm3 RBC (3.65-5.03) M/mm3 Hgb (11.8-15.2) gm/dl Hct (35.5-45.6) % MCV (84-94) fl MCH (28-32) pg MCHC (32-34) % RDW (13.2-15.2) % Seg Neuts % (Manual) (40.0-70.0) % Lymphocytes % (Manual) (13.4-35.0) % Seg Neutrophils # Man (1.8-7.7) K/mm3 Lymphocytes # (Manual) (1.2-5.4) K/mm3 Monocytes # (Manual) (0.0-0.8) K/mm3 ABG pH (7.320-7.450) POC ABG pCO2 (32.0-48.0) mmHg POC ABG pO2 (83-108) mmHg ABG Hemoglobin (12.0-17.5) ABG Sodium (136.0-145.0) mmol/L ABG Potassium (3.40-4.50) mmol/L ABG Chloride (98-107) mmol/L Carboxyhemoglobin (0.5-1.5) Sodium 131 L (137-145) mmol/L Potassium 5.6 H (3.6-5.0) mmol/L Chloride 76.7 L (98-107) mmol/L Carbon Dioxide 3 L* (22-30) mmol/L BUN 61 H (9-20) mg/dL Creatinine 4.0 H (0.8-1.3) mg/dL Glucose 1277 H* (75-100) mg/dL POC Glucose (70-105) mg/dL Lactic Acid 12.20 H* (0.7-2.0) mmol/L Calcium 8.0 L (8.4-10.2) mg/dL Phosphorus 16.20 H (2.5-4.5) mg/dL Magnesium 3.20 H (1.7-2.3) mg/dL Iron (49-181) ug/dL TIBC (250-450) mcg/dL AST (5-40) units/L Alkaline Phosphatase (35-129) units/L Total Creatine Kinase (55-170) units/L Total Protein (6.3-8.2) g/dL PTH Intact (15-65) pg/mL 06/11/21 06/11/21 06/11/21 Range/Units 02:52 04:20 04:21 WBC (4.5-11.0) K/mm3 RBC (3.65-5.03) M/mm3 Hgb (11.8-15.2) gm/dl Hct (35.5-45.6) % MCV (84-94) fl MCH (28-32) pg MCHC (32-34) % RDW (13.2-15.2) % Seg Neuts % (Manual) (40.0-70.0) % Lymphocytes % (Manual) (13.4-35.0) % Seg Neutrophils # Man (1.8-7.7) K/mm3 Lymphocytes # (Manual) (1.2-5.4) K/mm3 Monocytes # (Manual) (0.0-0.8) K/mm3 ABG pH (7.320-7.450) POC ABG pCO2 (32.0-48.0) mmHg POC ABG pO2 (83-108) mmHg ABG Hemoglobin (12.0-17.5) ABG Sodium (136.0-145.0) mmol/L ABG Potassium (3.40-4.50) mmol/L ABG Chloride (98-107) mmol/L Carboxyhemoglobin (0.5-1.5) Sodium (137-145) mmol/L Potassium 2.5 L* D (3.6-5.0) mmol/L Chloride 107.8 H (98-107) mmol/L Carbon Dioxide 3 L* (22-30) mmol/L BUN 34 H (9-20) mg/dL Creatinine 2.1 H (0.8-1.3) mg/dL Glucose 692 H* (75-100) mg/dL POC Glucose > 600 H (70-105) mg/dL Lactic Acid 7.60 H* (0.7-2.0) mmol/L Calcium 4.0 L* D (8.4-10.2) mg/dL Phosphorus (2.5-4.5) mg/dL Magnesium (1.7-2.3) mg/dL Iron (49-181) ug/dL TIBC (250-450) mcg/dL AST (5-40) units/L Alkaline Phosphatase (35-129) units/L Total Creatine Kinase (55-170) units/L Total Protein (6.3-8.2) g/dL PTH Intact (15-65) pg/mL 06/11/21 06/11/21 06/11/21 Range/Units 05:59 05:59 09:50 WBC (4.5-11.0) K/mm3 RBC (3.65-5.03) M/mm3 Hgb (11.8-15.2) gm/dl Hct (35.5-45.6) % MCV (84-94) fl MCH (28-32) pg MCHC (32-34) % RDW (13.2-15.2) % Seg Neuts % (Manual) (40.0-70.0) % Lymphocytes % (Manual) (13.4-35.0) % Seg Neutrophils # Man (1.8-7.7) K/mm3 Lymphocytes # (Manual) (1.2-5.4) K/mm3 Monocytes # (Manual) (0.0-0.8) K/mm3 ABG pH (7.320-7.450) POC ABG pCO2 (32.0-48.0) mmHg POC ABG pO2 (83-108) mmHg ABG Hemoglobin (12.0-17.5) ABG Sodium (136.0-145.0) mmol/L ABG Potassium (3.40-4.50) mmol/L ABG Chloride (98-107) mmol/L Carboxyhemoglobin (0.5-1.5) Sodium (137-145) mmol/L Potassium (3.6-5.0) mmol/L Chloride 90.3 L (98-107) mmol/L Carbon Dioxide 6 L* (22-30) mmol/L BUN 58 H (9-20) mg/dL Creatinine 4.1 H D (0.8-1.3) mg/dL Glucose 1103 H* (75-100) mg/dL POC Glucose 490 H (70-105) mg/dL Lactic Acid 9.70 H* (0.7-2.0) mmol/L Calcium 7.9 L D (8.4-10.2) mg/dL Phosphorus (2.5-4.5) mg/dL Magnesium (1.7-2.3) mg/dL Iron (49-181) ug/dL TIBC (250-450) mcg/dL AST (5-40) units/L Alkaline Phosphatase (35-129) units/L Total Creatine Kinase (55-170) units/L Total Protein (6.3-8.2) g/dL PTH Intact (15-65) pg/mL 06/11/21 06/11/21 06/11/21 Range/Units 10:00 10:00 10:00 WBC (4.5-11.0) K/mm3 RBC (3.65-5.03) M/mm3 Hgb (11.8-15.2) gm/dl Hct (35.5-45.6) % MCV (84-94) fl MCH (28-32) pg MCHC (32-34) % RDW (13.2-15.2) % Seg Neuts % (Manual) (40.0-70.0) % Lymphocytes % (Manual) (13.4-35.0) % Seg Neutrophils # Man (1.8-7.7) K/mm3 Lymphocytes # (Manual) (1.2-5.4) K/mm3 Monocytes # (Manual) (0.0-0.8) K/mm3 ABG pH (7.320-7.450) POC ABG pCO2 (32.0-48.0) mmHg POC ABG pO2 (83-108) mmHg ABG Hemoglobin (12.0-17.5) ABG Sodium (136.0-145.0) mmol/L ABG Potassium (3.40-4.50) mmol/L ABG Chloride (98-107) mmol/L Carboxyhemoglobin (0.5-1.5) Sodium (137-145) mmol/L Potassium (3.6-5.0) mmol/L Chloride (98-107) mmol/L Carbon Dioxide 9 L* (22-30) mmol/L BUN 52 H (9-20) mg/dL Creatinine 3.8 H (0.8-1.3) mg/dL Glucose 569 H* (75-100) mg/dL POC Glucose (70-105) mg/dL Lactic Acid 14.20 H* (0.7-2.0) mmol/L Calcium 7.8 L (8.4-10.2) mg/dL Phosphorus (2.5-4.5) mg/dL Magnesium (1.7-2.3) mg/dL Iron (49-181) ug/dL TIBC (250-450) mcg/dL AST (5-40) units/L Alkaline Phosphatase (35-129) units/L Total Creatine Kinase 603 H (55-170) units/L Total Protein (6.3-8.2) g/dL PTH Intact (15-65) pg/mL 06/11/21 06/11/21 06/11/21 Range/Units 10:00 13:11 Unknown WBC (4.5-11.0) K/mm3 RBC (3.65-5.03) M/mm3 Hgb (11.8-15.2) gm/dl Hct (35.5-45.6) % MCV (84-94) fl MCH (28-32) pg MCHC (32-34) % RDW (13.2-15.2) % Seg Neuts % (Manual) (40.0-70.0) % Lymphocytes % (Manual) (13.4-35.0) % Seg Neutrophils # Man (1.8-7.7) K/mm3 Lymphocytes # (Manual) (1.2-5.4) K/mm3 Monocytes # (Manual) (0.0-0.8) K/mm3 ABG pH (7.320-7.450) POC ABG pCO2 (32.0-48.0) mmHg POC ABG pO2 (83-108) mmHg ABG Hemoglobin (12.0-17.5) ABG Sodium (136.0-145.0) mmol/L ABG Potassium (3.40-4.50) mmol/L ABG Chloride (98-107) mmol/L Carboxyhemoglobin (0.5-1.5) Sodium (137-145) mmol/L Potassium (3.6-5.0) mmol/L Chloride (98-107) mmol/L Carbon Dioxide (22-30) mmol/L BUN (9-20) mg/dL Creatinine (0.8-1.3) mg/dL Glucose (75-100) mg/dL POC Glucose 235 H (70-105) mg/dL Lactic Acid (0.7-2.0) mmol/L Calcium (8.4-10.2) mg/dL Phosphorus 6.50 H D (2.5-4.5) mg/dL Magnesium (1.7-2.3) mg/dL Iron 17 L (49-181) ug/dL TIBC 117 L (250-450) mcg/dL AST (5-40) units/L Alkaline Phosphatase (35-129) units/L Total Creatine Kinase (55-170) units/L Total Protein (6.3-8.2) g/dL PTH Intact 110.2 H (15-65) pg/mL Assessment and Plan 61 y/o male admitted with DKA 1. NPO 2. Insulin drip until Anion gap closes 3. Once sugar is below 250 change fluids to D5W likely will need potassium 4. Rule out other causes other than noncompliance Will continue to follow CCT 31 minutes.
[2021-06-11 17:16] LABS: Calcium 7.3 mg/dL (8.4-10.2)
[2021-06-11] MEDS: SODIUM BICARBONATE 100 MEQ in DEXTROSE 5% IN WATER 1,000 ML IV SCH (19:15)
[2021-06-11] MEDS: LATANOPROST 0.005% OPHTH SOLN 2.5 ML OU SCH (23:29)
[2021-06-11 23:57] LABS: Calcium 7.3 mg/dL (8.4-10.2)
[2021-06-12] MEDS ORDERED: ALBUMIN HUMAN 25% (25 GM/100 ML) INJ IV SCH (01:00)
[2021-06-12] MEDS: ALBUMIN HUMAN 25% (25 GM/100 ML) INJ IV SCH (03:03)
[2021-06-12] MEDS: SODIUM BICARBONATE 100 MEQ in DEXTROSE 5% IN WATER 1,000 ML IV SCH (03:07)
[2021-06-12 03:12] LABS: Calcium 7.6 mg/dL (8.4-10.2)
[2021-06-12] MEDS: IPRATROPIUM/ALBUTEROL SULFATE 3 ML AMPUL.NEB IH SCH ×4 (06:28→20:36)
--- NOTE | 2021-06-12 06:41 | Ultrasound Report ---
. ULTRASOUND RENAL INDICATION / CLINICAL INFORMATION: martina. COMPARISON: CT abdomen/pelvis from 05/22/2020 FINDINGS: RIGHT KIDNEY: Length = 11.1 cm. [normal > 9 cm] - Parenchymal Thickness = 1.2 cm. [normal > 1.5 cm] - Echogenicity: Normal. - Hydronephrosis: None. - Cyst or mass: No significant abnormality. - Stones: None seen. LEFT KIDNEY: Length = 11.1 cm. [normal > 9 cm] - Parenchymal Thickness = 1.2 cm. [normal > 1.5 cm] - Echogenicity: Normal. - Hydronephrosis: None. - Cyst or mass: No significant abnormality. - Stones: None seen. URINARY BLADDER: No significant abnormality. FREE FLUID: None. ADDITIONAL FINDINGS: None. IMPRESSION: 1. Mild bilateral renal parenchymal thinning. Otherwise nothing acute. Signer Name: Tyson Hill MD Signed: 06/12/2021 6:37 AM Workstation Name: [id number]
[2021-06-12 07:01] LABS: Hematocrit 24.8 % (35.5-45.6); Hemoglobin 8.2 gm/dl (11.8-15.2); Mean Corpuscular HGB Conc 33 % (32-34); Mean Corpuscular Volume 100 fl (84-94); Platelet Count 129 K/mm3 (140-440); Red Blood Count 2.48 M/mm3 (3.65-5.03); Red Cell Distribution Width 15.6 % (13.2-15.2)
[2021-06-12 07:27] LABS: Albumin 3.7 g/dL (3.9-5); Calcium 8.2 mg/dL (8.4-10.2)
--- NOTE | 2021-06-12 08:26 | Progress Note ---
Assessment and Plan Assessment and plan: History of present illness: 61 years old male with history of insulin-dependent diabetes mellitus, noncompliant with his medication was brought to the emergency room via EMS from home after patient was found by his sister with altered mental status and a strong smell of acetone. EMS stated that patient found to be hypoxic with an oxygen saturation initially of 70% that improved to 95% on a nonrebreather. Patient have to be restrained due to significant altered mental status. Patient is moving all extremities. Dispo: Admit to ICU for DKA, CONG, and severe metabolic acidosis. Hospital Course: 06/11/2021: Continue IV fluids. Nephrology recommendations noted, agree with albumin at this time. Ordered Lawrence catheter for more accurate I/o's. PICC line ordered for access/possible pressors if patient blood pressure does not improve. Continue abx, if procal negative will d/c. 06/12/2021: Improved clinical status, blood pressure has improved as has urine output. Suspect renal dysfunction more pre-renal and driven by dehydration. continue IVF and insulin gtt. Maintain NPO status. Anion gap remains open at 20. Will trend serial bmp. WBC count improving, maintain abx. Procal elevated. COVID PCR pending. Anticipate d/c in next 24-48hrs. Assessment and Plan: # Diabetic Ketoacidosis in Type 1 Diabetic B , A, Bicarb 4, pH: , LA: 13.10 on admission Fluid management and insulin gtt per DKA protocol serial BMP. Trend BG, GAP diabetic education. CCM consulted # Severe Metabolic acidosis secondary to DKA Bicarb 4 on admission, VBG pH: 7.0 started on bicarbonate gtt Monitor bicarb on serial bmp # Hyperkalemia Patient already on IV fluid, insulin drip as per protocol and D50. Should correct as DKA improves. bicarb drip initiated. Monitor K on serial BMP #Hypernatremia correction with IVF and DKA protocol. # Acute kidney injury (CONG) with acute tubular necrosis (ATN) CR: 3.6, BUN : 59, had CKD3 based on prior records Avoid nephrotoxic agents Renally dose medication. IV fluid half-normal saline at the rate of 150 cc/h. Ordered lawrence for accurate I/O's. consult nephrology: recommends urine studies, renal US. No MID TEACHER at this point. Albumin for low BP Follow kidney function on renal profile # Macrocytic Anemia Hgb: 8.9 Epogen 20,000 X 1 SQ for ACD, check Iron panel Check PTH for signs of 2HPT signalling CKD # Sepsis POA (improving) Unclear source, elevated WBC, LA Empiric Cefepime 1 g IV every 8 hours and vancomycin 1 g IV every 12 hours initiated on admission blood culture and sputum culture ordered procalcitonin elevated (8.7), continue abx. Low BP, could be intravascular depletion from DKA vs Sepsis. Now improved COVID 19 PCR ordered. # Type 1 Diabetes with Hyperglycemia home regimen: Levemir 15 units subq daily and novolin on SSI ordered hemoglobin a1c management per DKA protocol at this time, will transition to subcutaneous insulin once gap closes/dka resolves. # Arthritis Stable. Tylenol 650 mg p.o. every 6 hours as needed. # DVT prophylaxis Heparin 5000 units subcu every 8 hours for DVT prophylaxis. Pepcid 20 mg IV every 12 hours for GI prophylaxis. Patient is a full code The high probability of a clinically significant, sudden or life threatening deterioration of the [multi] system(s) required my full and direct attention, intervention and personal management. The aggregate critical care time was [60] minutes. This time is in addition to time spent performing reported procedures but includes the following: [x] Data Review and interpretation [x] Patient assessment and monitoring of vital signs [x] Documentation [x] Medication orders and management History Interval history: Patient has improved mentation today. He states that he has been feeling well only has some slight nausea. Per RN, patient urine output has been robust. Patient had output has been approximately 2 L overnight. Hospitalist Physical - Physical exam Narrative exam: Physical Exam: VITAL SIGNS: Reviewed. GENERAL: The patient appears normally developed, Vital signs as documented. HEAD: No signs of head trauma. EYES: Pupils are equal. Extraocular motions intact. EARS: Hearing grossly intact. MOUTH: Oropharynx is normal. NECK: No adenopathy, no JVD. CHEST: Chest with clear breath sounds bilaterally. No wheezes, rales, or rhonc hi. CARDIAC: Regular rate and rhythm. S1 and S2, without murmurs, gallops, or rubs. VASCULAR: No Edema. Peripheral pulses normal and equal in all extremities. ABDOMEN: Soft, non tender and non distended. No rebound or guarding, and no masses palpated. Bowel Sounds normal. MUSCULOSKELETAL: Good range of motion of all major joints. Extremities without clubbing, cyanosis or edema. NEUROLOGIC EXAM: Alert and oriented x 4. no focal sensory or strength deficits. PSYCHIATRIC: Mood normal. SKIN: detail exam as documented in skin assessment - Constitutional Vitals: Temp Pulse Resp BP Pulse Ox 97.5 F L 82 23 124/76 95 06/11/21 02:00 06/12/21 05:31 06/12/21 05:31 06/12/21 06:31 06/12/21 06:31 General appearance: Present: severe distress, cachectic HEART Score - HEART Score Troponin: Troponin T < 0.010 ng/mL (0.00-0.029) 06/10/21 22:57 Results - Labs CBC & Chem 7: 06/12/21 06:41 06/12/21 11:07 Labs: Laboratory Last Values WBC 14.3 K/mm3 (4.5-11.0) H 06/12/21 06:41 RBC 2.48 M/mm3 (3.65-5.03) L 06/12/21 06:41 Hgb 8.2 gm/dl (11.8-15.2) L 06/12/21 06:41 Hct 24.8 % (35.5-45.6) L D 06/12/21 06:41 MCV 100 fl (84-94) H 06/12/21 06:41 MCH 33 pg (28-32) H 06/12/21 06:41 MCHC 33 % (32-34) 06/12/21 06:41 RDW 15.6 % (13.2-15.2) H 06/12/21 06:41 Plt Count 129 K/mm3 (140-440) L 06/12/21 06:41 [place] % (Auto) [place] 06/12/21 06:41 Add Manual Diff Complete 06/10/21 22:57 Total Counted 100 06/10/21 22:57 Seg Neutrophils % [place] 06/12/21 06:41 Seg Neuts % (Manual) 90.0 % (40.0-70.0) H 06/10/21 22:57 Band Neutrophils % 0 % 06/10/21 22:57 Lymphocytes % (Manual) 4.0 % (13.4-35.0) L 06/10/21 22:57 Reactive Lymphs % (Man) 0 % 06/10/21 22:57 Monocytes % (Manual) 6.0 % (0.0-7.3) 06/10/21 22:57 Eosinophils % (Manual) 0 % (0.0-4.3) 06/10/21 22:57 Basophils % (Manual) 0 % (0.0-1.8) 06/10/21 22:57 Metamyelocytes % 0 % 06/10/21 22:57 Myelocytes % 0 % 06/10/21 22:57 Promyelocytes % 0 % 06/10/21 22:57 Blast Cells % 0 % 06/10/21 22:57 Nucleated RBC % Not Reportable 06/10/21 22:57 Seg Neutrophils # Man 15.8 K/mm3 (1.8-7.7) H 06/10/21 22:57 Band Neutrophils # 0.0 K/mm3 06/10/21 22:57 Lymphocytes # (Manual) 0.7 K/mm3 (1.2-5.4) L 06/10/21 22:57 Abs React Lymphs (Man) 0.0 K/mm3 06/10/21 22:57 Monocytes # (Manual) 1.1 K/mm3 (0.0-0.8) H 06/10/21 22:57 Eosinophils # (Manual) 0.0 K/mm3 (0.0-0.4) 06/10/21 22:57 Basophils # (Manual) 0.0 K/mm3 (0.0-0.1) 06/10/21 22:57 Metamyelocytes # 0.0 K/mm3 06/10/21 22:57 Myelocytes # 0.0 K/mm3 06/10/21 22:57 Promyelocytes # 0.0 K/mm3 06/10/21 22:57 Blast Cells # 0.0 K/mm3 06/10/21 22:57 WBC Morphology Not Reportable 06/10/21 22:57 Hypersegmented Neuts Not Reportable 06/10/21 22:57 Hyposegmented Neuts Not Reportable 06/10/21 22:57 Hypogranular Neuts Not Reportable 06/10/21 22:57 Smudge Cells Not Reportable 06/10/21 22:57 Toxic Granulation Not Reportable 06/10/21 22:57 Toxic Vacuolation Not Reportable 06/10/21 22:57 Dohle Bodies Not Reportable 06/10/21 22:57 Pelger-Huet Anomaly Not Reportable 06/10/21 22:57 Chinyere Rods Not Reportable 06/10/21 22:57 Platelet Estimate Not Reportable 06/10/21 22:57 Clumped Platelets Not Reportable 06/10/21 22:57 Plt Clumps, EDTA Not Reportable 06/10/21 22:57 Large Platelets Not Reportable 06/10/21 22:57 Giant Platelets Not Reportable 06/10/21 22:57 Platelet Satelliting Not Reportable 06/10/21 22:57 Plt Morphology Comment Not Reportable 06/10/21 22:57 RBC Morphology Not Reportable 06/10/21 22:57 Dimorphic RBCs Not Reportable 06/10/21 22:57 Polychromasia Not Reportable 06/10/21 22:57 Hypochromasia Not Reportable 06/10/21 22:57 Poikilocytosis Not Reportable 06/10/21 22:57 Anisocytosis Rare 06/10/21 22:57 Microcytosis Not Reportable 06/10/21 22:57 Macrocytosis 1+ 06/10/21 22:57 Spherocytes Not Reportable 06/10/21 22:57 Pappenheimer Bodies Not Reportable 06/10/21 22:57 Sickle Cells Not Reportable 06/10/21 22:57 Target Cells Not Reportable 06/10/21 22:57 Tear Drop Cells Not Reportable 06/10/21 22:57 Ovalocytes Not Reportable 06/10/21 22:57 Helmet Cells Not Reportable 06/10/21 22:57 [place] Bodies Not Reportable 06/10/21 22:57 Garrett Rings Not Reportable 06/10/21 22:57 [place] Cells Not Reportable 06/10/21 22:57 Bite Cells Not Reportable 06/10/21 22:57 Crenated Cell Not Reportable 06/10/21 22:57 Elliptocytes Not Reportable 06/10/21 22:57 Acanthocytes (Spur) Not Reportable 06/10/21 22:57 Rouleaux Not Reportable 06/10/21 22:57 Hemoglobin C Crystals Not Reportable 06/10/21 22:57 Schistocytes Not Reportable 06/10/21 22:57 Malaria parasites Not Reportable 06/10/21 22:57 Jerry Bodies Not Reportable 06/10/21 22:57 Hem Pathologist Commnt No 06/10/21 22:57 PT 14.4 Sec. (12.2-14.9) 06/10/21 22:57 INR 1.01 (0.87-1.13) 06/10/21 22:57 APTT 29.1 Sec. (24.2-36.6) 06/10/21 22:57 ABG pH 7.022 (7.320-7.450) L 06/10/21 22:33 POC ABG pCO2 14.4 mmHg (32.0-48.0) L 06/10/21 22:33 POC ABG pO2 142.4 mmHg (83-108) H 06/10/21 22:33 POC ABG HCO3 3.7 06/10/21 22:33 ABG O2 Saturation 98.0 (0-100) 06/10/21 22:33 POC ABG Base Excess -25.3 06/10/21 22:33 ABG Hemoglobin 9.3 (12.0-17.5) L 06/10/21 22:33 ABG Oxyhemoglobin 97.6 (94-98) 06/10/21 22:33 ABG Methemoglobin 0.1 (0.0-1.5) 06/10/21 22:33 ABG Sodium 133.2 mmol/L (136.0-145.0) L 06/10/21 22:33 ABG Potassium 5.5 mmol/L (3.40-4.50) H 06/10/21 22:33 ABG Chloride 83.0 mmol/L (98-107) L 06/10/21 22:33 Carboxyhemoglobin 0.3 (0.5-1.5) L 06/10/21 22:33 FiO2 % 21.0 06/10/21 22:33 Sodium 146 mmol/L (137-145) H 06/12/21 06:41 Potassium 3.2 mmol/L (3.6-5.0) L 06/12/21 06:41 Chloride 108.4 mmol/L (98-107) H 06/12/21 06:41 Carbon Dioxide 23 mmol/L (22-30) 06/12/21 06:41 Anion Gap 18 mmol/L 06/12/21 06:41 BUN 33 mg/dL (9-20) H 06/12/21 06:41 Creatinine 2.1 mg/dL (0.8-1.3) H 06/12/21 06:41 Estimated GFR 39 ml/min 06/12/21 06:41 BUN/Creatinine Ratio 16 % 06/12/21 06:41 Glucose 101 mg/dL (75-100) H 06/12/21 06:41 POC Glucose 126 mg/dL (70-105) H 06/12/21 06:14 Lactic Acid 14.20 mmol/L (0.7-2.0) H* 06/11/21 10:00 Calcium 8.2 mg/dL (8.4-10.2) L 06/12/21 06:41 Phosphorus 6.50 mg/dL (2.5-4.5) H D 06/11/21 10:00 Magnesium 3.20 mg/dL (1.7-2.3) H 06/11/21 02:07 Iron 17 ug/dL (49-181) L 06/11/21 10:00 TIBC 117 mcg/dL (250-450) L 06/11/21 10:00 Total Bilirubin 0.60 mg/dL (0.1-1.2) 06/12/21 06:41 Direct Bilirubin < 0.2 mg/dL (0-0.2) 06/10/21 22:57 Indirect Bilirubin 0.1 mg/dL 06/10/21 22:57 AST 106 units/L (5-40) H 06/12/21 06:41 ALT 46 units/L (7-56) 06/12/21 06:41 Alkaline Phosphatase 89 units/L (35-129) 06/12/21 06:41 Ammonia 50.0 umol/L (25-60) 06/10/21 22:57 Total Creatine Kinase 603 units/L (55-170) H 06/11/21 10:00 Troponin T < 0.010 ng/mL (0.00-0.029) 06/10/21 22:57 Total Protein 5.3 g/dL (6.3-8.2) L 06/12/21 06:41 Albumin 3.7 g/dL (3.9-5) L 06/12/21 06:41 Albumin/Globulin Ratio 2.3 % 06/12/21 06:41 Procalcitonin 8.71 ng/mL (<0.15) 06/11/21 10:00 PTH Intact 110.2 pg/mL (15-65) H 06/11/21 Unknown Arterial Blood Ionized Calcium 4.9 mg/dL (4.6-5.3) 06/10/21 22:33 Urine Color Straw (Yellow) 06/11/21 07:48 Urine Turbidity Clear (Clear) 06/11/21 07:48 Urine pH 5.0 (5.0-7.0) 06/11/21 07:48 Ur Specific [place] 1.018 (1.003-1.030) 06/11/21 07:48 Urine Protein 30 mg/dl mg/dL (Negative) 06/11/21 07:48 Urine Glucose (UA) >=500 mg/dL (Negative) 06/11/21 07:48 Urine Ketones 20 mg/dL (Negative) 06/11/21 07:48 Urine Blood Mod (Negative) 06/11/21 07:48 Urine Nitrite Neg (Negative) 06/11/21 07:48 Urine Bilirubin Neg (Negative) 06/11/21 07:48 Urine Urobilinogen < 2.0 mg/dL (<2.0) 06/11/21 07:48 Ur Leukocyte Esterase Neg (Negative) 06/11/21 07:48 Urine WBC (Auto) 1.0 /HPF (0.0-6.0) 06/11/21 07:48 Urine RBC (Auto) 14.0 /HPF (0.0-6.0) 06/11/21 07:48 U Epithel Cells (Auto) 2.0 /HPF (0-13.0) 06/11/21 07:48 Urine Bacteria (Auto) 2+ /HPF (Negative) 06/11/21 07:48 Amorphous Crystals Few 06/11/21 07:48 Hyaline Casts 2 /LPF 06/11/21 07:48 Urine Mucus Few /HPF 06/11/21 07:48 Random Vancomycin 8.8 ug/mL (0-40.0) 06/12/21 06:41 Urine Opiates Screen Negative 06/11/21 07:48 Urine Methadone Screen Negative 06/11/21 07:48 Ur Barbiturates Screen Negative 06/11/21 07:48 Ur Phencyclidine Scrn Negative 06/11/21 07:48 Ur Amphetamines Screen Negative 06/11/21 07:48 U Benzodiazepines Scrn Negative 06/11/21 07:48 Urine Cocaine Screen Negative 06/11/21 07:48 U Marijuana (THC) Screen Negative 06/11/21 07:48 Drugs of Abuse Note Disclamer 06/11/21 07:48 Plasma/Serum Alcohol < 0.01 % (0-0.07) 06/10/21 22:57 Microbiology: Microbiology 06/10/21 22:57 Peripheral/Venous Blood Culture - Preliminary NO GROWTH AFTER 24 HOURS 06/10/21 23:38 Peripheral/Venous Blood Culture - Preliminary NO GROWTH AFTER 24 HOURS Active Medications - Current Medications Current Medications: Generic Name Dose Route Start Last Admin Trade Name Freq PRN Reason Stop Dose Admin Acetaminophen 650 mg 06/11/21 01:35 Acetaminophen 325 Mg Tab PO Q4H PRN Pain MILD(1-3)/Fever >100.5/JAVIER Albuterol 2.5 mg 06/11/21 01:35 Albuterol 2.5 Mg/3 Ml Nebu IH Q4HRT PRN Shortness Of Breath Albuterol/Ipratropium 1 ampul 06/11/21 02:00 06/12/21 06:28 Ipratropium/Albuterol Sulfate 3 Ml Ampul.Neb IH Not Given Q6HRT ESTHER Cyclobenzaprine HCl 10 mg 06/11/21 01:51 Cyclobenzaprine 10 Mg Tab PO TID PRN Muscle Spasm Dextrose 0 ml 06/10/21 23:45 Dextrose 50% In Water (25gm) 50 Ml Syringe IV Q30MIN PRN Hypoglycemia Protocol Folic Acid 1 mg 06/11/21 10:00 06/11/21 12:25 Folic Acid 1 Mg Tab PO 1 mg DAILY ESTHER Administration Heparin Sodium (Porcine) 5,000 unit 06/11/21 10:00 06/11/21 23:28 Heparin 5,000 Unit/1 Ml Vial SUB-Q 5,000 unit Q12HR ESTHER Administration Hydromorphone HCl 0.5 mg 06/11/21 01:35 Hydromorphone 1 Mg/1 Ml Inj IV Q3H PRN Pain , Severe (7-10) Insulin Human Regular 100 100 mls @ 1 mls/hr 06/10/21 23:45 06/12/21 06:29 units/ Sodium Chloride IV 1.5 units/hr TITR ESTHER 1.5 mls/hr Titration Protocol 1 UNITS/HR Cefepime HCl 2 gm in 100 mls @ 200 mls/hr 06/11/21 10:00 06/11/21 12:24 Cefepime/Ns 2 Gm/100 Ml IV 200 mls/hr Q24H ESTHER Administration Protocol Sodium Bicarbonate 100 meq/ 1,100 mls @ 125 mls/hr 06/11/21 12:00 06/12/21 03:07 Dextrose IV 125 mls/hr DIRECT ESTHER Administration Latanoprost 1 drops 06/11/21 22:00 06/11/21 23:29 Latanoprost 0.005% Ophth Soln 2.5 Ml OU 1 drops QHS ESTHER Administration Metoclopramide HCl 5 mg 06/11/21 01:51 Metoclopramide 10 Mg Tab PO Q6H PRN Nausea And Vomiting Midodrine 10 mg 06/11/21 12:00 06/11/21 17:43 Midodrine 5 Mg Tab PO Not Given TID@0800,1200,1600 [facility] Morphine Sulfate 2 mg 06/11/21 01:35 Morphine 2 Mg/1 Ml Inj IV Q4H PRN Pain, Moderate (4-6) Ondansetron HCl 4 mg 06/11/21 01:35 Ondansetron 4 Mg/2 Ml Inj IV Q8H PRN Nausea And Vomiting Pantoprazole Sodium 40 mg 06/11/21 10:00 06/11/21 12:25 Pantoprazole 40 Mg Inj IV 40 mg QDAY ESTHER Administration Sodium Chloride 10 ml 06/11/21 10:00 06/11/21 23:29 Sodium Chloride 0.9% 10 Ml Flush Syringe IV 10 ml BID ESTHER Administration Sodium Chloride 10 ml 06/11/21 01:35 Sodium Chloride 0.9% 10 Ml Flush Syringe IV PRN PRN LINE FLUSH Sucralfate 1 gm 06/11/21 07:30 06/11/21 22:10 Sucralfate 1 Gm/10 Ml Oral Liqd PO 1 gm ACHS ESTHER Administration Nutrition/Malnutrition Assess - Dietary Evaluation Nutrition/Malnutrition Findings: Nutrition Notes Start: 06/11/21 10:55 Freq: Status: Active Protocol: Document 06/11/21 10:55 BALA (Rec: 06/11/21 10:58 BALA [id number]) Nutrition Notes Need for Assessment generated from: MD Order,Education Initial or Follow up Brief Note Current Diet NPO (since 06/11 01:36). Height 5 ft 7 in Weight 61.235 kg [place] Body Weight (kg) 67.27 BMI 21.1 Weight change and time frame None reported at admission. Weight Status Appropriate Subjective/Other Information RD consult for Nutrition Education. Pt still on hold, not a candidate for Nutrition Education at the time, will assess feasibility on F/U. Percent of energy/protein needs met: Pt currently on NPO. Current % PO Other Nutrition Intervention Additional Comments Nutrition education will be provided on F/U if feasible. When pertinent, continue monitoring food tolerance, %PO intake of meals, and BM.
--- NOTE | 2021-06-12 09:28 | Progress Note ---
Assessment and Plan DKA, type 1 Hyperkalemia Acute kidney injury (CONG) with acute tubular necrosis (ATN) on top of CKD Sepsis due to unknown cause Arthritis High anion gap metabolic acidosis Anemia -Cr is trending down, good UOP -No acute KITCHEN CLEANER indication right -Renally dose all meds -Avoid Nephrotoxic meds -Check Phos level -On Abx for Sepsis. Subjective Date of service: 06/12/21 Principal diagnosis: CONG Interval history: off insulin drip Objective - Vital Signs Vital signs: Vital Signs - 12hr 06/11/21 06/11/21 06/11/21 21:31 22:01 22:31 Pulse Rate Respiratory Rate Blood Pressure 115/78 121/75 110/56 O2 Sat by Pulse 92 95 94 Oximetry 06/11/21 06/11/21 06/12/21 23:01 23:31 00:11 Pulse Rate Respiratory Rate Blood Pressure 123/77 139/77 137/72 O2 Sat by Pulse 93 88 95 Oximetry 06/12/21 06/12/21 06/12/21 00:30 01:14 01:40 Pulse Rate Respiratory Rate Blood Pressure 134/73 119/62 109/65 O2 Sat by Pulse Oximetry 06/12/21 06/12/21 06/12/21 02:14 02:39 03:01 Pulse Rate 87 Respiratory 22 Rate Blood Pressure 122/63 119/63 120/73 O2 Sat by Pulse 86 97 Oximetry 06/12/21 06/12/21 06/12/21 03:31 04:01 04:31 Pulse Rate 90 81 83 Respiratory 28 H 24 26 H Rate Blood Pressure 132/73 136/77 139/82 O2 Sat by Pulse 95 97 97 Oximetry 06/12/21 06/12/21 06/12/21 05:01 05:31 06:01 Pulse Rate 86 82 Respiratory 22 23 Rate Blood Pressure 154/81 131/84 139/74 O2 Sat by Pulse 97 96 97 Oximetry 06/12/21 06/12/21 06/12/21 06:31 07:01 07:31 Pulse Rate Respiratory Rate Blood Pressure 124/76 149/89 144/77 O2 Sat by Pulse 95 97 93 Oximetry 06/12/21 06/12/21 08:01 08:31 Pulse Rate 90 Respiratory 34 H Rate Blood Pressure 147/66 137/71 O2 Sat by Pulse 95 96 Oximetry - Lab 06/12/21 06:41 06/12/21 06:41 Most recent lab results ABG pH 7.022 (7.320-7.450) L 06/10/21 22:33 ABG O2 Saturation 98.0 (0-100) 06/10/21 22:33 Calcium 8.2 mg/dL (8.4-10.2) L 06/12/21 06:41 Phosphorus 6.50 mg/dL (2.5-4.5) H D 06/11/21 10:00 Magnesium 3.20 mg/dL (1.7-2.3) H 06/11/21 02:07 Medications & Allergies - Medications Allergies/Adverse Reactions: Allergies Tetracyclines Allergy (Verified 12/26/16 09:54) Swelling Home Medications: Home Medications Medication Instructions Recorded Confirmed Last Taken Type Stephane Cit/Mag/D3/Zn/Block Mechanic/Wood/Bor 1 each PO QDAY 05/22/20 05/22/20 Unknown History [Citracal-D3 Plus Magnesium Tab] Cyanocobalamin (Vitamin B-12) 5,000 mcg PO QDAY 05/22/20 05/22/20 Unknown History [Vitamin B-12] Cyclobenzaprine [Flexeril 10 MG 10 mg PO TID PRN 05/22/20 05/22/20 Unknown History TAB] Folic Acid 0.8 mg PO QDAY 05/22/20 05/22/20 Unknown History Lisinopril [Zestril] 5 mg PO QDAY 05/22/20 05/22/20 Unknown History Lispro Insulin [HumaLOG] 0 unit SQ ACHS 05/22/20 05/22/20 Unknown History Melatonin [Melatonin 10MG TAB] 10 mg PO QHS 05/22/20 05/22/20 Unknown History Metoprolol Xl [Metoprolol 50 mg PO QDAY 05/22/20 05/22/20 Unknown History SUCCINATE ER TAB] Travoprost 2.5 ml OP QDAY 05/22/20 05/22/20 Unknown History Insulin Glargine [Lantus VIAL] 15 units SUB-Q QAM #10 ml 05/24/20 Unknown Rx Insulin Glargine [Lantus VIAL] 30 units SUB-Q QHS #10 ml 05/24/20 Unknown Rx Metoclopramide [Reglan TAB] 10 mg PO Q6H PRN #30 tablet 05/24/20 Unknown Rx Pantoprazole [Protonix] 40 mg PO QDAY #30 tablet 05/24/20 Unknown Rx Sucralfate [Carafate] 1 gm PO ACHS 30 Days 05/24/20 Unknown Rx Active Medications: Generic Name Dose Route Start Last Admin Trade Name Freq PRN Reason Stop Dose Admin Acetaminophen 650 mg 06/11/21 01:35 Acetaminophen 325 Mg Tab PO Q4H PRN Pain MILD(1-3)/Fever >100.5/JAVIER Albuterol 2.5 mg 06/11/21 01:35 Albuterol 2.5 Mg/3 Ml Nebu IH Q4HRT PRN Shortness Of Breath Albuterol/Ipratropium 1 ampul 06/11/21 02:00 06/12/21 06:28 Ipratropium/Albuterol Sulfate 3 Ml Ampul.Neb IH Not Given Q6HRT ESTHER Cyclobenzaprine HCl 10 mg 06/11/21 01:51 Cyclobenzaprine 10 Mg Tab PO TID PRN Muscle Spasm Dextrose 0 ml 06/10/21 23:45 Dextrose 50% In Water (25gm) 50 Ml Syringe IV Q30MIN PRN Hypoglycemia Protocol Folic Acid 1 mg 06/11/21 10:00 06/11/21 12:25 Folic Acid 1 Mg Tab PO 1 mg DAILY ESTHER Administration Heparin Sodium (Porcine) 5,000 unit 06/11/21 10:00 06/11/21 23:28 Heparin 5,000 Unit/1 Ml Vial SUB-Q 5,000 unit Q12HR ESTHER Administration Hydromorphone HCl 0.5 mg 06/11/21 01:35 Hydromorphone 1 Mg/1 Ml Inj IV Q3H PRN Pain , Severe (7-10) Insulin Human Regular 100 100 mls @ 1 mls/hr 06/10/21 23:45 06/12/21 08:31 units/ Sodium Chloride IV 0 units/hr TITR ESTHER 0 mls/hr Titration Protocol 1 UNITS/HR Cefepime HCl 2 gm in 100 mls @ 200 mls/hr 06/11/21 10:00 06/11/21 12:24 Cefepime/Ns 2 Gm/100 Ml IV 200 mls/hr Q24H ESTHER Administration Protocol Sodium Bicarbonate 100 meq/ 1,100 mls @ 125 mls/hr 06/11/21 12:00 06/12/21 03:07 Dextrose IV 125 mls/hr DIRECT ESTHER Administration Latanoprost 1 drops 06/11/21 22:00 06/11/21 23:29 Latanoprost 0.005% Ophth Soln 2.5 Ml OU 1 drops QHS ESTHER Administration Metoclopramide HCl 5 mg 06/11/21 01:51 Metoclopramide 10 Mg Tab PO Q6H PRN Nausea And Vomiting Midodrine 10 mg 06/11/21 12:00 06/11/21 17:43 Midodrine 5 Mg Tab PO Not Given TID@0800,1200,1600 ESTHER Morphine Sulfate 2 mg 06/11/21 01:35 Morphine 2 Mg/1 Ml Inj IV Q4H PRN Pain, Moderate (4-6) Ondansetron HCl 4 mg 06/11/21 01:35 Ondansetron 4 Mg/2 Ml Inj IV Q8H PRN Nausea And Vomiting Pantoprazole Sodium 40 mg 06/11/21 10:00 06/11/21 12:25 Pantoprazole 40 Mg Inj IV 40 mg QDAY ESTHER Administration Sodium Chloride 10 ml 06/11/21 10:00 06/11/21 23:29 Sodium Chloride 0.9% 10 Ml Flush Syringe IV 10 ml BID ESTHER Administration Sodium Chloride 10 ml 06/11/21 01:35 Sodium Chloride 0.9% 10 Ml Flush Syringe IV PRN PRN LINE FLUSH Sucralfate 1 gm 06/11/21 07:30 06/11/21 22:10 Sucralfate 1 Gm/10 Ml Oral Liqd PO 1 gm ACHS ESTHER Administration
[2021-06-12] MEDS: MIDODRINE 5 MG TAB PO SCH (10:15)
[2021-06-12] MEDS: SUCRALFATE 1 GM/10 ML ORAL LIQD PO SCH ×3 (11:01→22:31)
[2021-06-12] MEDS: FOLIC ACID 1 MG TAB PO SCH ×2 (11:01→11:13)
[2021-06-12] MEDS: PANTOPRAZOLE 40 MG INJ IV SCH (11:01)
[2021-06-12] MEDS: HEPARIN 5,000 UNIT/1 ML VIAL SUB-Q SCH ×2 (11:02→22:25)
[2021-06-12] MEDS: CEFEPIME/NS 2 GM/100 ML 2 GM/100 ML BAG IV SCH (11:02)
[2021-06-12 11:56] LABS: Calcium 8.4 mg/dL (8.4-10.2)
[2021-06-12] MEDS ORDERED: VANCOMYCIN/NS 1 GM/250 ML 1 GM/250 ML BAG IV ONE (12:00)
--- NOTE | 2021-06-12 13:13 | Progress Note ---
Assessment and Plan 61 y/o male admitted with DKA 06/12/21: Continue insulin drip until anion GAP closes (16 or less). Preferably the calculated anion gap and not the measured (one on the chemistry). IF that one is 20 or less than drip could be stopped after patient initiated on long acting insulin and tolerating PO. Will continue to follow. 1. NPO 2. Insulin drip until Anion gap closes 3. Once sugar is below 250 change fluids to D5W likely will need potassium 4. Rule out other causes other than noncompliance Will continue to follow CCT 31 minutes. Subjective Date of service: 06/12/21 Principal diagnosis: CONG Interval history: Anion Gap had closed but now out again. Drip may have been discontinued as on another DKA in the ED. Objective - Constitutional Vitals: Vital Signs - 12hr 06/12/21 06/12/21 06/12/21 01:14 01:40 02:14 Pulse Rate Pulse Rate [ Anterior Bilateral Throughout] Respiratory Rate Respiratory Rate [Anterior Bilateral Throughout] Blood Pressure 119/62 109/65 122/63 O2 Sat by Pulse Oximetry 06/12/21 06/12/21 06/12/21 02:39 03:01 03:31 Pulse Rate 87 90 Pulse Rate [ Anterior Bilateral Throughout] Respiratory 22 28 H Rate Respiratory Rate [Anterior Bilateral Throughout] Blood Pressure 119/63 120/73 132/73 O2 Sat by Pulse 86 97 95 Oximetry 06/12/21 06/12/21 06/12/21 04:01 04:31 05:01 Pulse Rate 81 83 86 Pulse Rate [ Anterior Bilateral Throughout] Respiratory 24 26 H 22 Rate Respiratory Rate [Anterior Bilateral Throughout] Blood Pressure 136/77 139/82 154/81 O2 Sat by Pulse 97 97 97 Oximetry 06/12/21 06/12/21 06/12/21 05:31 06:01 06:31 Pulse Rate 82 Pulse Rate [ Anterior Bilateral Throughout] Respiratory 23 Rate Respiratory Rate [Anterior Bilateral Throughout] Blood Pressure 131/84 139/74 124/76 O2 Sat by Pulse 96 97 95 Oximetry 06/12/21 06/12/21 06/12/21 07:01 07:31 08:00 Pulse Rate Pulse Rate [ 92 H Anterior Bilateral Throughout] Respiratory Rate Respiratory 22 Rate [Anterior Bilateral Throughout] Blood Pressure 149/89 144/77 O2 Sat by Pulse 97 93 95 Oximetry 06/12/21 06/12/21 06/12/21 08:01 08:31 09:01 Pulse Rate 90 Pulse Rate [ Anterior Bilateral Throughout] Respiratory 34 H 37 H Rate Respiratory Rate [Anterior Bilateral Throughout] Blood Pressure 147/66 137/71 129/82 O2 Sat by Pulse 95 96 95 Oximetry 06/12/21 09:31 Pulse Rate Pulse Rate [ Anterior Bilateral Throughout] Respiratory 21 Rate Respiratory Rate [Anterior Bilateral Throughout] Blood Pressure 137/74 O2 Sat by Pulse 93 Oximetry - Labs CBC & Chem 7: 06/12/21 06:41 06/12/21 11:07 Labs: Abnormal lab results 06/11/21 06/11/21 06/11/21 Range/Units 13:11 14:47 16:29 WBC (4.5-11.0) K/mm3 RBC (3.65-5.03) M/mm3 Hgb (11.8-15.2) gm/dl Hct (35.5-45.6) % MCV (84-94) fl MCH (28-32) pg RDW (13.2-15.2) % Plt Count (140-440) K/mm3 Sodium 147 H (137-145) mmol/L Potassium (3.6-5.0) mmol/L Chloride 109.2 H (98-107) mmol/L Carbon Dioxide 16 L D (22-30) mmol/L BUN 42 H (9-20) mg/dL Creatinine 2.7 H (0.8-1.3) mg/dL Glucose 206 H (75-100) mg/dL POC Glucose 235 H 176 H (70-105) mg/dL Calcium 7.3 L (8.4-10.2) mg/dL AST (5-40) units/L Total Protein (6.3-8.2) g/dL Albumin (3.9-5) g/dL 06/11/21 06/11/21 06/11/21 Range/Units 16:31 17:41 18:25 WBC (4.5-11.0) K/mm3 RBC (3.65-5.03) M/mm3 Hgb (11.8-15.2) gm/dl Hct (35.5-45.6) % MCV (84-94) fl MCH (28-32) pg RDW (13.2-15.2) % Plt Count (140-440) K/mm3 Sodium 149 H (137-145) mmol/L Potassium (3.6-5.0) mmol/L Chloride 110.2 H (98-107) mmol/L Carbon Dioxide 16 L (22-30) mmol/L BUN 43 H (9-20) mg/dL Creatinine 2.7 H (0.8-1.3) mg/dL Glucose 174 H (75-100) mg/dL POC Glucose 153 H 214 H (70-105) mg/dL Calcium 7.0 L (8.4-10.2) mg/dL AST (5-40) units/L Total Protein (6.3-8.2) g/dL Albumin (3.9-5) g/dL 06/11/21 06/12/21 06/12/21 Range/Units 23:10 00:03 01:46 WBC (4.5-11.0) K/mm3 RBC (3.65-5.03) M/mm3 Hgb (11.8-15.2) gm/dl Hct (35.5-45.6) % MCV (84-94) fl MCH (28-32) pg RDW (13.2-15.2) % Plt Count (140-440) K/mm3 Sodium 148 H (137-145) mmol/L Potassium (3.6-5.0) mmol/L Chloride 110.4 H (98-107) mmol/L Carbon Dioxide 19 L (22-30) mmol/L BUN 39 H (9-20) mg/dL Creatinine 2.3 H (0.8-1.3) mg/dL Glucose 105 H (75-100) mg/dL POC Glucose 108 H 136 H (70-105) mg/dL Calcium 7.3 L (8.4-10.2) mg/dL AST (5-40) units/L Total Protein (6.3-8.2) g/dL Albumin (3.9-5) g/dL 06/12/21 06/12/21 06/12/21 Range/Units 02:38 02:42 03:44 WBC (4.5-11.0) K/mm3 RBC (3.65-5.03) M/mm3 Hgb (11.8-15.2) gm/dl Hct (35.5-45.6) % MCV (84-94) fl MCH (28-32) pg RDW (13.2-15.2) % Plt Count (140-440) K/mm3 Sodium 146 H (137-145) mmol/L Potassium (3.6-5.0) mmol/L Chloride 109.9 H (98-107) mmol/L Carbon Dioxide 19 L (22-30) mmol/L BUN 38 H (9-20) mg/dL Creatinine 2.3 H (0.8-1.3) mg/dL Glucose 134 H (75-100) mg/dL POC Glucose 132 H 129 H (70-105) mg/dL Calcium 7.6 L (8.4-10.2) mg/dL AST (5-40) units/L Total Protein (6.3-8.2) g/dL Albumin (3.9-5) g/dL 06/12/21 06/12/21 06/12/21 Range/Units 05:05 06:14 06:41 WBC 14.3 H (4.5-11.0) K/mm3 RBC 2.48 L (3.65-5.03) M/mm3 Hgb 8.2 L (11.8-15.2) gm/dl Hct 24.8 L D (35.5-45.6) % MCV 100 H (84-94) fl MCH 33 H (28-32) pg RDW 15.6 H (13.2-15.2) % Plt Count 129 L (140-440) K/mm3 Sodium (137-145) mmol/L Potassium (3.6-5.0) mmol/L Chloride (98-107) mmol/L Carbon Dioxide (22-30) mmol/L BUN (9-20) mg/dL Creatinine (0.8-1.3) mg/dL Glucose (75-100) mg/dL POC Glucose 183 H 126 H (70-105) mg/dL Calcium (8.4-10.2) mg/dL AST (5-40) units/L Total Protein (6.3-8.2) g/dL Albumin (3.9-5) g/dL 06/12/21 06/12/21 Range/Units 06:41 11:07 WBC (4.5-11.0) K/mm3 RBC (3.65-5.03) M/mm3 Hgb (11.8-15.2) gm/dl Hct (35.5-45.6) % MCV (84-94) fl MCH (28-32) pg RDW (13.2-15.2) % Plt Count (140-440) K/mm3 Sodium 146 H (137-145) mmol/L Potassium 3.2 L 3.4 L (3.6-5.0) mmol/L Chloride 108.4 H (98-107) mmol/L Carbon Dioxide 21 L (22-30) mmol/L BUN 33 H 32 H (9-20) mg/dL Creatinine 2.1 H 1.9 H (0.8-1.3) mg/dL Glucose 101 H 187 H (75-100) mg/dL POC Glucose (70-105) mg/dL Calcium 8.2 L (8.4-10.2) mg/dL AST 106 H (5-40) units/L Total Protein 5.3 L (6.3-8.2) g/dL Albumin 3.7 L (3.9-5) g/dL Medications & Allergies - Medications Allergies/Adverse Reactions: Allergies Tetracyclines Allergy (Verified 12/26/16 09:54) Swelling Home Medications: Home Medications Medication Instructions Recorded Confirmed Last Taken Type Stephane Cit/Mag/D3/Zn/Steamer Blocker/Wood/Bor 1 each PO QDAY 05/22/20 05/22/20 Unknown History [Citracal-D3 Plus Magnesium Tab] Cyanocobalamin (Vitamin B-12) 5,000 mcg PO QDAY 05/22/20 05/22/20 Unknown History [Vitamin B-12] Cyclobenzaprine [Flexeril 10 MG 10 mg PO TID PRN 05/22/20 05/22/20 Unknown History TAB] Folic Acid 0.8 mg PO QDAY 05/22/20 05/22/20 Unknown History Lisinopril [Zestril] 5 mg PO QDAY 05/22/20 05/22/20 Unknown History Lispro Insulin [HumaLOG] 0 unit SQ ACHS 05/22/20 05/22/20 Unknown History Melatonin [Melatonin 10MG TAB] 10 mg PO QHS 05/22/20 05/22/20 Unknown History Metoprolol Xl [Metoprolol 50 mg PO QDAY 05/22/20 05/22/20 Unknown History SUCCINATE ER TAB] Travoprost 2.5 ml OP QDAY 05/22/20 05/22/20 Unknown History Insulin Glargine [Lantus VIAL] 15 units SUB-Q QAM #10 ml 05/24/20 Unknown Rx Insulin Glargine [Lantus VIAL] 30 units SUB-Q QHS #10 ml 05/24/20 Unknown Rx Metoclopramide [Reglan TAB] 10 mg PO Q6H PRN #30 tablet 05/24/20 Unknown Rx Pantoprazole [Protonix] 40 mg PO QDAY #30 tablet 05/24/20 Unknown Rx Sucralfate [Carafate] 1 gm PO ACHS 30 Days 05/24/20 Unknown Rx Active Medications: Generic Name Dose Route Start Last Admin Trade Name Freq PRN Reason Stop Dose Admin Acetaminophen 650 mg 06/11/21 01:35 Acetaminophen 325 Mg Tab PO Q4H PRN Pain MILD(1-3)/Fever >100.5/JAVIER Albuterol 2.5 mg 06/11/21 01:35 Albuterol 2.5 Mg/3 Ml Nebu IH Q4HRT PRN Shortness Of Breath Albuterol/Ipratropium 1 ampul 06/11/21 02:00 06/12/21 08:00 Ipratropium/Albuterol Sulfate 3 Ml Ampul.Neb IH 1 ampul Q6HRT ESTHER Administration Cyclobenzaprine HCl 10 mg 06/11/21 01:51 Cyclobenzaprine 10 Mg Tab PO TID PRN Muscle Spasm Dextrose 0 ml 06/10/21 23:45 Dextrose 50% In Water (25gm) 50 Ml Syringe IV Q30MIN PRN Hypoglycemia Protocol Folic Acid 1 mg 06/11/21 10:00 06/12/21 11:13 Folic Acid 1 Mg Tab PO Not Given DAILY ESTHER Heparin Sodium (Porcine) 5,000 unit 06/11/21 10:00 06/12/21 11:02 Heparin 5,000 Unit/1 Ml Vial SUB-Q 5,000 unit Q12HR ESTHER Administration Hydromorphone HCl 0.5 mg 06/11/21 01:35 Hydromorphone 1 Mg/1 Ml Inj IV Q3H PRN Pain , Severe (7-10) Insulin Human Regular 100 100 mls @ 1 mls/hr 06/10/21 23:45 06/12/21 08:31 units/ Sodium Chloride IV 0 units/hr TITR ESTHER 0 mls/hr Titration Protocol 1 UNITS/HR Cefepime HCl 2 gm in 100 mls @ 200 mls/hr 06/11/21 10:00 06/12/21 11:02 Cefepime/Ns 2 Gm/100 Ml IV 200 mls/hr Q24H ESTHER Administration Protocol Sodium Bicarbonate 100 meq/ 1,100 mls @ 125 mls/hr 06/11/21 12:00 06/12/21 03:07 Dextrose IV 125 mls/hr DIRECT ESTHER Administration Vancomycin HCl 1 gm in 250 mls @ 167.007 mls/hr 06/12/21 12:00 Vancomycin/Ns 1 Gm/250 Ml IV 06/12/21 13:29 ONCE ONE Potassium Chloride 40 meq/ 1,020 mls @ 125 mls/hr 06/12/21 13:00 Dextrose IV DIRECT ESTHER Latanoprost 1 drops 06/11/21 22:00 06/11/21 23:29 Latanoprost 0.005% Ophth Soln 2.5 Ml OU 1 drops QHS ESTHER Administration Metoclopramide HCl 5 mg 06/11/21 01:51 Metoclopramide 10 Mg Tab PO Q6H PRN Nausea And Vomiting Midodrine 10 mg 06/11/21 12:00 06/12/21 10:15 Midodrine 5 Mg Tab PO Not Given TID@0800,1200,1600 ESTHER Morphine Sulfate 2 mg 06/11/21 01:35 Morphine 2 Mg/1 Ml Inj IV Q4H PRN Pain, Moderate (4-6) Ondansetron HCl 4 mg 06/11/21 01:35 Ondansetron 4 Mg/2 Ml Inj IV Q8H PRN Nausea And Vomiting Pantoprazole Sodium 40 mg 06/11/21 10:00 06/12/21 11:01 Pantoprazole 40 Mg Inj IV 40 mg QDAY ESTHER Administration Sodium Chloride 10 ml 06/11/21 10:00 06/12/21 11:03 Sodium Chloride 0.9% 10 Ml Flush Syringe IV 10 ml BID ESTHER Administration Sodium Chloride 10 ml 06/11/21 01:35 Sodium Chloride 0.9% 10 Ml Flush Syringe IV PRN PRN LINE FLUSH Sucralfate 1 gm 06/11/21 07:30 06/12/21 11:01 Sucralfate 1 Gm/10 Ml Oral Liqd PO 1 gm ACHS ESTHER Administration HEART Score - HEART Score Troponin: Troponin T < 0.010 ng/mL (0.00-0.029) 06/10/21 22:57
[2021-06-12] MEDS ORDERED: POTASSIUM CHLORIDE 40 MEQ in DEXTROSE 5% IN WATER 1,000 ML IV SCH (14:00)
[2021-06-12 15:26] LABS: Band Neutrophils # (Manual) 2.1 K/mm3; Basophils % (Manual) 0 % (0.0-1.8); Eosinophils % (Manual) 0 % (0.0-4.3); Hypochromasia 1+; Monocytes % (Manual) 0 % (0.0-7.3); Total Cells Counted 100
[2021-06-12 15:27] LABS: Macrocytosis 1+; Platelet Estimate Consistent w Auto
[2021-06-12 18:35] LABS: Calcium 8.4 mg/dL (8.4-10.2)
[2021-06-12] MEDS: LATANOPROST 0.005% OPHTH SOLN 2.5 ML OU SCH (22:31)
[2021-06-12 23:46] LABS: Calcium 8.3 mg/dL (8.4-10.2)
[2021-06-13] MEDS: IPRATROPIUM/ALBUTEROL SULFATE 3 ML AMPUL.NEB IH SCH ×4 (04:37→20:25)
--- NOTE | 2021-06-13 09:20 | Progress Note ---
Assessment and Plan DKA Hyperkalemia Acute kidney injury (CONG) with acute tubular necrosis (ATN) on top of CKD Sepsis due to unknown cause Arthritis High anion gap metabolic acidosis Anemia -stable kidney function, cont to have good UOP -Hyperkalemia is resolved -Renally dose all meds -Avoid Nephrotoxic meds -strict I&O Subjective Date of service: 06/13/21 Principal diagnosis: CONG Interval history: resting comfortably Objective - Vital Signs Vital signs: Vital Signs - 12hr 06/12/21 06/12/21 06/12/21 21:55 22:00 23:00 Pulse Rate [ 80 Anterior Bilateral Throughout] Pulse Rate [ 84 Anterior] Respiratory 18 Rate [Anterior Bilateral Throughout] Respiratory 20 Rate [Anterior] Blood Pressure 159/92 153/91 O2 Sat by Pulse 96 97 Oximetry 06/12/21 06/13/21 06/13/21 23:34 00:00 01:00 Pulse Rate [ Anterior Bilateral Throughout] Pulse Rate [ Anterior] Respiratory Rate [Anterior Bilateral Throughout] Respiratory Rate [Anterior] Blood Pressure 153/91 155/99 152/83 O2 Sat by Pulse 99 100 99 Oximetry 06/13/21 06/13/21 06/13/21 02:00 03:00 04:00 Pulse Rate [ Anterior Bilateral Throughout] Pulse Rate [ Anterior] Respiratory Rate [Anterior Bilateral Throughout] Respiratory Rate [Anterior] Blood Pressure 141/88 145/87 145/83 O2 Sat by Pulse 98 100 100 Oximetry 06/13/21 06/13/21 06/13/21 04:38 05:00 06:00 Pulse Rate [ 82 Anterior Bilateral Throughout] Pulse Rate [ 79 Anterior] Respiratory 23 Rate [Anterior Bilateral Throughout] Respiratory 21 Rate [Anterior] Blood Pressure 147/87 139/67 O2 Sat by Pulse 100 99 Oximetry - Lab 06/12/21 06:41 06/13/21 05:19 Most recent lab results ABG pH 7.022 (7.320-7.450) L 06/10/21 22:33 ABG O2 Saturation 98.0 (0-100) 06/10/21 22:33 Calcium 9.0 mg/dL (8.4-10.2) 06/13/21 05:19 Phosphorus 6.50 mg/dL (2.5-4.5) H D 06/11/21 10:00 Magnesium 3.20 mg/dL (1.7-2.3) H 06/11/21 02:07 Medications & Allergies - Medications Allergies/Adverse Reactions: Allergies Tetracyclines Allergy (Verified 12/26/16 09:54) Swelling Home Medications: Home Medications Medication Instructions Recorded Confirmed Last Taken Type Stephane Cit/Mag/D3/Zn/Power Wood Sawyer/Wood/Bor 1 each PO QDAY 05/22/20 05/22/20 Unknown History [Citracal-D3 Plus Magnesium Tab] Cyanocobalamin (Vitamin B-12) 5,000 mcg PO QDAY 05/22/20 05/22/20 Unknown History [Vitamin B-12] Cyclobenzaprine [Flexeril 10 MG 10 mg PO TID PRN 05/22/20 05/22/20 Unknown History TAB] Folic Acid 0.8 mg PO QDAY 05/22/20 05/22/20 Unknown History Lisinopril [Zestril] 5 mg PO QDAY 05/22/20 05/22/20 Unknown History Lispro Insulin [HumaLOG] 0 unit SQ ACHS 05/22/20 05/22/20 Unknown History Melatonin [Melatonin 10MG TAB] 10 mg PO QHS 05/22/20 05/22/20 Unknown History Metoprolol Xl [Metoprolol 50 mg PO QDAY 05/22/20 05/22/20 Unknown History SUCCINATE ER TAB] Travoprost 2.5 ml OP QDAY 05/22/20 05/22/20 Unknown History Insulin Glargine [Lantus VIAL] 15 units SUB-Q QAM #10 ml 05/24/20 Unknown Rx Insulin Glargine [Lantus VIAL] 30 units SUB-Q QHS #10 ml 05/24/20 Unknown Rx Metoclopramide [Reglan TAB] 10 mg PO Q6H PRN #30 tablet 05/24/20 Unknown Rx Pantoprazole [Protonix] 40 mg PO QDAY #30 tablet 05/24/20 Unknown Rx Sucralfate [Carafate] 1 gm PO ACHS 30 Days 05/24/20 Unknown Rx Active Medications: Generic Name Dose Route Start Last Admin Trade Name Freq PRN Reason Stop Dose Admin Acetaminophen 650 mg 06/11/21 01:35 Acetaminophen 325 Mg Tab PO Q4H PRN Pain MILD(1-3)/Fever >100.5/JAVIER Albuterol 2.5 mg 06/11/21 01:35 Albuterol 2.5 Mg/3 Ml Nebu IH Q4HRT PRN Shortness Of Breath Albuterol/Ipratropium 1 ampul 06/11/21 02:00 06/13/21 04:37 Ipratropium/Albuterol Sulfate 3 Ml Ampul.Neb IH 1 ampul Q6HRT ESTHER Administration Cyclobenzaprine HCl 10 mg 06/11/21 01:51 Cyclobenzaprine 10 Mg Tab PO TID PRN Muscle Spasm Dextrose 0 ml 06/10/21 23:45 Dextrose 50% In Water (25gm) 50 Ml Syringe IV Q30MIN PRN Hypoglycemia Protocol Folic Acid 1 mg 06/11/21 10:00 06/12/21 11:13 Folic Acid 1 Mg Tab PO Not Given DAILY ESTHER Heparin Sodium (Porcine) 5,000 unit 06/11/21 10:00 06/12/21 22:25 Heparin 5,000 Unit/1 Ml Vial SUB-Q 5,000 unit Q12HR ESTHER Administration Hydromorphone HCl 0.5 mg 06/11/21 01:35 Hydromorphone 1 Mg/1 Ml Inj IV Q3H PRN Pain , Severe (7-10) Insulin Human Regular 100 100 mls @ 1 mls/hr 06/10/21 23:45 06/13/21 02:55 units/ Sodium Chloride IV Infused TITR ESTHER Titration Protocol 1 UNITS/HR Cefepime HCl 2 gm in 100 mls @ 200 mls/hr 06/11/21 10:00 06/12/21 11:02 Cefepime/Ns 2 Gm/100 Ml IV 200 mls/hr Q24H ESTHER Administration Protocol Potassium Chloride 40 meq/ 1,020 mls @ 125 mls/hr 06/12/21 14:00 06/12/21 14:31 Dextrose IV 125 mls/hr DIRECT ESTHER Administration Latanoprost 1 drops 06/11/21 22:00 06/12/21 22:31 Latanoprost 0.005% Ophth Soln 2.5 Ml OU 1 drops QHS ESTHER Administration Metoclopramide HCl 5 mg 06/11/21 01:51 Metoclopramide 10 Mg Tab PO Q6H PRN Nausea And Vomiting Midodrine 10 mg 06/11/21 12:00 06/12/21 10:15 Midodrine 5 Mg Tab PO Not Given TID@0800,1200,1600 ESTHER Morphine Sulfate 2 mg 06/11/21 01:35 Morphine 2 Mg/1 Ml Inj IV Q4H PRN Pain, Moderate (4-6) Ondansetron HCl 4 mg 06/11/21 01:35 Ondansetron 4 Mg/2 Ml Inj IV Q8H PRN Nausea And Vomiting Pantoprazole Sodium 40 mg 06/11/21 10:00 06/12/21 11:01 Pantoprazole 40 Mg Inj IV 40 mg QDAY ESTHER Administration Sodium Chloride 10 ml 06/11/21 10:00 06/12/21 11:03 Sodium Chloride 0.9% 10 Ml Flush Syringe IV 10 ml BID ESTHER Administration Sodium Chloride 10 ml 06/11/21 01:35 Sodium Chloride 0.9% 10 Ml Flush Syringe IV PRN PRN LINE FLUSH Sucralfate 1 gm 06/11/21 07:30 06/12/21 22:31 Sucralfate 1 Gm/10 Ml Oral Liqd PO 1 gm ACHS ESTHER Administration
[2021-06-13] MEDS: MIDODRINE 5 MG TAB PO SCH ×4 (10:27→19:07)
[2021-06-13] MEDS: PANTOPRAZOLE 40 MG INJ IV SCH (10:28)
[2021-06-13] MEDS: SUCRALFATE 1 GM/10 ML ORAL LIQD PO SCH ×5 (10:29→23:26)
[2021-06-13] MEDS: HEPARIN 5,000 UNIT/1 ML VIAL SUB-Q SCH ×2 (10:33→23:26)
[2021-06-13] MEDS: CEFEPIME/NS 2 GM/100 ML 2 GM/100 ML BAG IV SCH (10:35)
[2021-06-13] MEDS: INSULIN REGULAR, HUMAN 100 UNITS in SODIUM CHLORIDE 0.9% 99 ML IV SCH (10:57)
[2021-06-13] MEDS ORDERED: D5W/0.45% NACL 1,000 ML IV SCH (11:00)
[2021-06-13] MEDS: MORPHINE 2 MG/1 ML INJ IV PRN ×2 (11:08→16:03)
[2021-06-13] MEDS: FOLIC ACID 1 MG TAB PO SCH (11:09)
[2021-06-13] MEDS: HYDROmorphone 1 MG/1 ML INJ IV PRN ×2 (13:08→20:40)
--- NOTE | 2021-06-13 13:12 | Progress Note ---
Assessment and Plan Assessment and plan: History of present illness: 61 years old male with history of insulin-dependent diabetes mellitus, noncompliant with his medication was brought to the emergency room via EMS from home after patient was found by his sister with altered mental status and a strong smell of acetone. EMS stated that patient found to be hypoxic with an oxygen saturation initially of 70% that improved to 95% on a nonrebreather. Patient have to be restrained due to significant altered mental status. Patient is moving all extremities. Dispo: Admit to ICU for DKA, CONG, and severe metabolic acidosis. Hospital Course: 06/11/2021: Continue IV fluids. Nephrology recommendations noted, agree with albumin at this time. Ordered Lawrence catheter for more accurate I/o's. PICC line ordered for access/possible pressors if patient blood pressure does not improve. Continue abx, if procal negative will d/c. 06/12/2021: Improved clinical status, blood pressure has improved as has urine output. Suspect renal dysfunction more pre-renal and driven by dehydration. continue IVF and insulin gtt. Maintain NPO status. Anion gap remains open at 20. Will trend serial bmp. WBC count improving, maintain abx. Procal elevated. COVID PCR pending. Anticipate d/c in next 24-48hrs. 06/13/2021: Anion gap still open. Continue NPO, insulin gtt, d5-1/2 NS. Once closed will start lantus and diabetic diet. Kidney function improved, good UOP. COVID PCR ordered due to report of hypoxia overnight, was on 2l/min nasal cannula on my encounter, however now on room air 97%. Do not anticipate this being a barrier to d/c. D/c once BMP shows closed anion gap and patient able to tolerate diet Assessment and Plan: # Diabetic Ketoacidosis in Type 1 Diabetic B , A, Bicarb 4, pH: , LA: 13.10 on admission Fluid management and insulin gtt per DKA protocol serial BMP. Trend BG, GAP diabetic education. CCM consulted # Severe Metabolic acidosis secondary to DKA Bicarb 4 on admission, VBG pH: 7.0 started on bicarbonate gtt Monitor bicarb on serial bmp # Hyperkalemia Patient already on IV fluid, insulin drip as per protocol and D50. Should correct as DKA improves. bicarb drip initiated. Monitor K on serial BMP #Hypernatremia correction with IVF and DKA protocol. # Acute kidney injury (CONG) with acute tubular necrosis (ATN) CR: 3.6, BUN : 59, had CKD3 based on prior records Avoid nephrotoxic agents Renally dose medication. IV fluid half-normal saline at the rate of 150 cc/h. Ordered lawrence for accurate I/O's. consult nephrology: recommends urine studies, renal US. No VETERINARY VIROLOGIST at this point. Albumin for low BP Follow kidney function on renal profile # Macrocytic Anemia Hgb: 8.9 Epogen 20,000 X 1 SQ for ACD, check Iron panel Check PTH for signs of 2HPT signalling CKD # Sepsis POA (improving) Unclear source, elevated WBC, LA Empiric Cefepime 1 g IV every 8 hours and vancomycin 1 g IV every 12 hours initiated on admission blood culture and sputum culture ordered procalcitonin elevated (8.7), continue abx. Low BP, could be intravascular depletion from DKA vs Sepsis. Now improved COVID 19 PCR ordered. # Type 1 Diabetes with Hyperglycemia home regimen: Levemir 15 units subq daily and novolin on SSI, he is compliant. ordered hemoglobin a1c management per DKA protocol at this time, will transition to subcutaneous insulin once gap closes/dka resolves. # Arthritis Stable. Tylenol 650 mg p.o. every 6 hours as needed. # DVT prophylaxis Heparin 5000 units subcu every 8 hours for DVT prophylaxis. Pepcid 20 mg IV every 12 hours for GI prophylaxis. Patient is a full code The high probability of a clinically significant, sudden or life threatening deterioration of the [multi] system(s) required my full and direct attention, intervention and personal management. The aggregate critical care time was [60] minutes. This time is in addition to time spent performing reported procedures but includes the following: [x] Data Review and interpretation [x] Patient assessment and monitoring of vital signs [x] Documentation [x] Medication orders and management Hospitalist Physical - Physical exam Narrative exam: Physical Exam: VITAL SIGNS: Reviewed. GENERAL: The patient appears normally developed, Vital signs as documented. HEAD: No signs of head trauma. EYES: Pupils are equal. Extraocular motions intact. EARS: Hearing grossly intact. MOUTH: Oropharynx is normal. NECK: No adenopathy, no JVD. CHEST: Chest with clear breath sounds bilaterally. No wheezes, rales, or rhonchi. CARDIAC: Regular rate and rhythm. S1 and S2, without murmurs, gallops, or rubs. VASCULAR: No Edema. Peripheral pulses normal and equal in all extremities. ABDOMEN: Soft, non tender and non distended. No rebound or guarding, and no masses palpated. Bowel Sounds normal. MUSCULOSKELETAL: Good range of motion of all major joints. Extremities without clubbing, cyanosis or edema. NEUROLOGIC EXAM: Alert and oriented x 4. no focal sensory or strength deficits. PSYCHIATRIC: Mood normal. SKIN: detail exam as documented in skin assessment - Constitutional Vitals: Temp Pulse Resp BP Pulse Ox 97.5 F L 95 H 13 137/84 95 06/11/21 02:00 06/13/21 11:14 06/13/21 11:00 06/13/21 11:00 06/13/21 11:00 General appearance: Present: severe distress, cachectic HEART Score - HEART Score Troponin: Troponin T < 0.010 ng/mL (0.00-0.029) 06/10/21 22:57 Results - Labs CBC & Chem 7: 06/12/21 06:41 06/13/21 05:19 Labs: Laboratory Last Values WBC 14.3 K/mm3 (4.5-11.0) H 06/12/21 06:41 RBC 2.48 M/mm3 (3.65-5.03) L 06/12/21 06:41 Hgb 8.2 gm/dl (11.8-15.2) L 06/12/21 06:41 Hct 24.8 % (35.5-45.6) L D 06/12/21 06:41 MCV 100 fl (84-94) H 06/12/21 06:41 MCH 33 pg (28-32) H 06/12/21 06:41 MCHC 33 % (32-34) 06/12/21 06:41 RDW 15.6 % (13.2-15.2) H 06/12/21 06:41 Plt Count 129 K/mm3 (140-440) L 06/12/21 06:41 [place] % (Auto) Pharmacy Account Director 06/12/21 06:41 Add Manual Diff Complete 06/12/21 06:41 Total Counted 100 06/12/21 06:41 Seg Neutrophils % Pharmacy Account Director 06/12/21 06:41 Seg Neuts % (Manual) 79.0 % (40.0-70.0) H 06/12/21 06:41 Band Neutrophils % 15.0 % 06/12/21 06:41 Lymphocytes % (Manual) 6.0 % (13.4-35.0) L 06/12/21 06:41 Reactive Lymphs % (Man) 0 % 06/12/21 06:41 Monocytes % (Manual) 0 % (0.0-7.3) 06/12/21 06:41 Eosinophils % (Manual) 0 % (0.0-4.3) 06/12/21 06:41 Basophils % (Manual) 0 % (0.0-1.8) 06/12/21 06:41 Metamyelocytes % 0 % 06/12/21 06:41 Myelocytes % 0 % 06/12/21 06:41 Promyelocytes % 0 % 06/12/21 06:41 Blast Cells % 0 % 06/12/21 06:41 Nucleated RBC % 2.0 % (0.0-0.9) H 06/12/21 06:41 Seg Neutrophils # Man 11.3 K/mm3 (1.8-7.7) H 06/12/21 06:41 Band Neutrophils # 2.1 K/mm3 06/12/21 06:41 Lymphocytes # (Manual) 0.9 K/mm3 (1.2-5.4) L 06/12/21 06:41 Abs React Lymphs (Man) 0.0 K/mm3 06/12/21 06:41 Monocytes # (Manual) 0.0 K/mm3 (0.0-0.8) 06/12/21 06:41 Eosinophils # (Manual) 0.0 K/mm3 (0.0-0.4) 06/12/21 06:41 Basophils # (Manual) 0.0 K/mm3 (0.0-0.1) 06/12/21 06:41 Metamyelocytes # 0.0 K/mm3 06/12/21 06:41 Myelocytes # 0.0 K/mm3 06/12/21 06:41 Promyelocytes # 0.0 K/mm3 06/12/21 06:41 Blast Cells # 0.0 K/mm3 06/12/21 06:41 WBC Morphology Not Reportable 06/12/21 06:41 Hypersegmented Neuts Not Reportable 06/12/21 06:41 Hyposegmented Neuts Not Reportable 06/12/21 06:41 Hypogranular Neuts Not Reportable 06/12/21 06:41 Smudge Cells Not Reportable 06/12/21 06:41 Toxic Granulation Not Reportable 06/12/21 06:41 Toxic Vacuolation Not Reportable 06/12/21 06:41 Dohle Bodies Not Reportable 06/12/21 06:41 Pelger-Huet Anomaly Not Reportable 06/12/21 06:41 Chinyere Rods Not Reportable 06/12/21 06:41 Platelet Estimate Consistent w auto 06/12/21 06:41 Clumped Platelets Not Reportable 06/12/21 06:41 Plt Clumps, EDTA Not Reportable 06/12/21 06:41 Large Platelets Not Reportable 06/12/21 06:41 Giant Platelets Not Reportable 06/12/21 06:41 Platelet Satelliting Not Reportable 06/12/21 06:41 Plt Morphology Comment Not Reportable 06/12/21 06:41 RBC Morphology Not Reportable 06/12/21 06:41 Dimorphic RBCs Not Reportable 06/12/21 06:41 Polychromasia Not Reportable 06/12/21 06:41 Hypochromasia 1+ 06/12/21 06:41 Poikilocytosis Not Reportable 06/12/21 06:41 Anisocytosis Not Reportable 06/12/21 06:41 Microcytosis Not Reportable 06/12/21 06:41 Macrocytosis 1+ 06/12/21 06:41 Spherocytes Not Reportable 06/12/21 06:41 Pappenheimer Bodies Not Reportable 06/12/21 06:41 Sickle Cells Not Reportable 06/12/21 06:41 Target Cells Not Reportable 06/12/21 06:41 Tear Drop Cells Not Reportable 06/12/21 06:41 Ovalocytes Not Reportable 06/12/21 06:41 Helmet Cells Not Reportable 06/12/21 06:41 [place] Bodies Not Reportable 06/12/21 06:41 [place] Rings Not Reportable 06/12/21 06:41 [place] Cells Not Reportable 06/12/21 06:41 Bite Cells Not Reportable 06/12/21 06:41 Crenated Cell Not Reportable 06/12/21 06:41 Elliptocytes Not Reportable 06/12/21 06:41 Acanthocytes (Spur) Not Reportable 06/12/21 06:41 Rouleaux Not Reportable 06/12/21 06:41 Hemoglobin C Crystals Not Reportable 06/12/21 06:41 Schistocytes Not Reportable 06/12/21 06:41 Malaria parasites Not Reportable 06/12/21 06:41 Jerry Bodies Not Reportable 06/12/21 06:41 Hem Pathologist Commnt No 06/12/21 06:41 PT 14.4 Sec. (12.2-14.9) 06/10/21 22:57 INR 1.01 (0.87-1.13) 06/10/21 22:57 APTT 29.1 Sec. (24.2-36.6) 06/10/21 22:57 ABG pH 7.022 (7.320-7.450) L 06/10/21 22:33 POC ABG pCO2 14.4 mmHg (32.0-48.0) L 06/10/21 22:33 POC ABG pO2 142.4 mmHg (83-108) H 06/10/21 22:33 POC ABG HCO3 3.7 06/10/21 22:33 ABG O2 Saturation 98.0 (0-100) 06/10/21 22:33 POC ABG Base Excess -25.3 06/10/21 22:33 ABG Hemoglobin 9.3 (12.0-17.5) L 06/10/21 22:33 ABG Oxyhemoglobin 97.6 (94-98) 06/10/21 22:33 ABG Methemoglobin 0.1 (0.0-1.5) 06/10/21 22:33 ABG Sodium 133.2 mmol/L (136.0-145.0) L 06/10/21 22:33 ABG Potassium 5.5 mmol/L (3.40-4.50) H 06/10/21 22:33 ABG Chloride 83.0 mmol/L (98-107) L 06/10/21 22:33 Carboxyhemoglobin 0.3 (0.5-1.5) L 06/10/21 22:33 FiO2 % 21.0 06/10/21 22:33 Sodium 145 mmol/L (137-145) D 06/13/21 05:19 Potassium 3.4 mmol/L (3.6-5.0) L D 06/13/21 05:19 Chloride 104.7 mmol/L (98-107) 06/13/21 05:19 Carbon Dioxide 19 mmol/L (22-30) L D 06/13/21 05:19 Anion Gap 25 mmol/L 06/13/21 05:19 BUN 27 mg/dL (9-20) H 06/13/21 05:19 Creatinine 1.8 mg/dL (0.8-1.3) H 06/13/21 05:19 Estimated GFR 46 ml/min 06/13/21 05:19 BUN/Creatinine Ratio 15 % 06/13/21 05:19 Glucose 128 mg/dL (75-100) H 06/13/21 05:19 POC Glucose 104 mg/dL (70-105) 06/13/21 12:52 Lactic Acid 14.20 mmol/L (0.7-2.0) H* 06/11/21 10:00 Calcium 9.0 mg/dL (8.4-10.2) 06/13/21 05:19 Phosphorus 6.50 mg/dL (2.5-4.5) H D 06/11/21 10:00 Magnesium 3.20 mg/dL (1.7-2.3) H 06/11/21 02:07 Iron 17 ug/dL (49-181) L 06/11/21 10:00 TIBC 117 mcg/dL (250-450) L 06/11/21 10:00 Total Bilirubin 0.60 mg/dL (0.1-1.2) 06/12/21 06:41 Direct Bilirubin < 0.2 mg/dL (0-0.2) 06/10/21 22:57 Indirect Bilirubin 0.1 mg/dL 06/10/21 22:57 AST 106 units/L (5-40) H 06/12/21 06:41 ALT 46 units/L (7-56) 06/12/21 06:41 Alkaline Phosphatase 89 units/L (35-129) 06/12/21 06:41 Ammonia 50.0 umol/L (25-60) 06/10/21 22:57 Total Creatine Kinase 603 units/L (55-170) H 06/11/21 10:00 Troponin T < 0.010 ng/mL (0.00-0.029) 06/10/21 22:57 Total Protein 5.3 g/dL (6.3-8.2) L 06/12/21 06:41 Albumin 3.7 g/dL (3.9-5) L 06/12/21 06:41 Albumin/Globulin Ratio 2.3 % 06/12/21 06:41 Procalcitonin 8.71 ng/mL (<0.15) 06/11/21 10:00 PTH Intact 110.2 pg/mL (15-65) H 06/11/21 Unknown Arterial Blood Ionized Calcium 4.9 mg/dL (4.6-5.3) 06/10/21 22:33 Urine Color Straw (Yellow) 06/11/21 07:48 Urine Turbidity Clear (Clear) 06/11/21 07:48 Urine pH 5.0 (5.0-7.0) 06/11/21 07:48 Ur Specific [place] 1.018 (1.003-1.030) 06/11/21 07:48 Urine Protein 30 mg/dl mg/dL (Negative) 06/11/21 07:48 Urine Glucose (UA) >=500 mg/dL (Negative) 06/11/21 07:48 Urine Ketones 20 mg/dL (Negative) 06/11/21 07:48 Urine Blood Mod (Negative) 06/11/21 07:48 Urine Nitrite Neg (Negative) 06/11/21 07:48 Urine Bilirubin Neg (Negative) 06/11/21 07:48 Urine Urobilinogen < 2.0 mg/dL (<2.0) 06/11/21 07:48 Ur Leukocyte Esterase Neg (Negative) 06/11/21 07:48 Urine WBC (Auto) 1.0 /HPF (0.0-6.0) 06/11/21 07:48 Urine RBC (Auto) 14.0 /HPF (0.0-6.0) 06/11/21 07:48 U Epithel Cells (Auto) 2.0 /HPF (0-13.0) 06/11/21 07:48 Urine Bacteria (Auto) 2+ /HPF (Negative) 06/11/21 07:48 Amorphous Crystals Few 06/11/21 07:48 Hyaline Casts 2 /LPF 06/11/21 07:48 Urine Mucus Few /HPF 06/11/21 07:48 Random Vancomycin 8.8 ug/mL (0-40.0) 06/12/21 06:41 Urine Opiates Screen Negative 06/11/21 07:48 Urine Methadone Screen Negative 06/11/21 07:48 Ur Barbiturates Screen Negative 06/11/21 07:48 Ur Phencyclidine Scrn Negative 06/11/21 07:48 Ur Amphetamines Screen Negative 06/11/21 07:48 U Benzodiazepines Scrn Negative 06/11/21 07:48 Urine Cocaine Screen Negative 06/11/21 07:48 U Marijuana (THC) Screen Negative 06/11/21 07:48 Drugs of Abuse Note Disclamer 06/11/21 07:48 Plasma/Serum Alcohol < 0.01 % (0-0.07) 06/10/21 22:57 Microbiology: Microbiology 06/10/21 22:57 Peripheral/Venous Blood Culture - Preliminary NO GROWTH AFTER 48 HOURS 06/10/21 23:38 Peripheral/Venous Blood Culture - Preliminary NO GROWTH AFTER 48 HOURS Active Medications - Current Medications Current Medications: Generic Name Dose Route Start Last Admin Trade Name Freq PRN Reason Stop Dose Admin Acetaminophen 650 mg 06/11/21 01:35 Acetaminophen 325 Mg Tab PO Q4H PRN Pain MILD(1-3)/Fever >100.5/JAVIER Albuterol 2.5 mg 06/11/21 01:35 Albuterol 2.5 Mg/3 Ml Nebu IH Q4HRT PRN Shortness Of Breath Albuterol/Ipratropium 1 ampul 06/11/21 02:00 06/13/21 09:37 Ipratropium/Albuterol Sulfate 3 Ml Ampul.Neb IH 1 ampul Q6HRT ESTHER Administration Cyclobenzaprine HCl 10 mg 06/11/21 01:51 06/13/21 10:28 Cyclobenzaprine 10 Mg Tab PO 10 mg TID PRN Administration Muscle Spasm Dextrose 0 ml 06/10/21 23:45 06/13/21 09:29 Dextrose 50% In Water (25gm) 50 Ml Syringe IV 50 ml Q30MIN PRN Administration Hypoglycemia Protocol Folic Acid 1 mg 06/11/21 10:00 06/13/21 11:09 Folic Acid 1 Mg Tab PO Not Given DAILY [facility] Heparin Sodium (Porcine) 5,000 unit 06/11/21 10:00 06/13/21 10:33 Heparin 5,000 Unit/1 Ml Vial SUB-Q 5,000 unit Q12HR ESTHER Administration Hydromorphone HCl 0.5 mg 06/11/21 01:35 06/13/21 13:08 Hydromorphone 1 Mg/1 Ml Inj IV 0.5 mg Q3H PRN Administration Pain , Severe (7-10) Insulin Human Regular 100 100 mls @ 1 mls/hr 06/10/21 23:45 06/13/21 12:52 units/ Sodium Chloride IV 1.5 units/hr TITR ESTHER 1.5 mls/hr Titration Protocol 1 UNITS/HR Cefepime HCl 2 gm in 100 mls @ 200 mls/hr 06/11/21 10:00 06/13/21 11:10 Cefepime/Ns 2 Gm/100 Ml IV Infused Q24H ESTHER Infusion Protocol Potassium Chloride 40 meq/ 1,020 mls @ 125 mls/hr 06/12/21 14:00 06/13/21 11:01 Dextrose IV Infused DIRECT ESTHER Infusion Dextrose/Sodium Chloride 1,000 mls @ 125 mls/hr 06/13/21 11:00 06/13/21 10:37 D5/0.45ns IV 125 mls/hr DIRECT ESTHER Administration Latanoprost 1 drops 06/11/21 22:00 06/12/21 22:31 Latanoprost 0.005% Ophth Soln 2.5 Ml OU 1 drops QHS ESTHER Administration Metoclopramide HCl 5 mg 06/11/21 01:51 Metoclopramide 10 Mg Tab PO Q6H PRN Nausea And Vomiting Midodrine 10 mg 06/11/21 12:00 06/13/21 10:36 Midodrine 5 Mg Tab PO Not Given TID@0800,1200,1600 [facility] Morphine Sulfate 2 mg 06/11/21 01:35 06/13/21 11:08 Morphine 2 Mg/1 Ml Inj IV 2 mg Q4H PRN Administration Pain, Moderate (4-6) Ondansetron HCl 4 mg 06/11/21 01:35 Ondansetron 4 Mg/2 Ml Inj IV Q8H PRN Nausea And Vomiting Pantoprazole Sodium 40 mg 06/11/21 10:00 06/13/21 10:28 Pantoprazole 40 Mg Inj IV 40 mg QDAY ESTHER Administration Sodium Chloride 10 ml 06/11/21 10:00 06/13/21 10:35 Sodium Chloride 0.9% 10 Ml Flush Syringe IV 10 ml BID ESTHER Administration Sodium Chloride 10 ml 06/11/21 01:35 Sodium Chloride 0.9% 10 Ml Flush Syringe IV PRN PRN LINE FLUSH Sucralfate 1 gm 06/11/21 07:30 06/13/21 13:07 Sucralfate 1 Gm/10 Ml Oral Liqd PO 1 gm ACHS ESTHER Administration Nutrition/Malnutrition Assess - Dietary Evaluation Nutrition/Malnutrition Findings: Nutrition Notes Start: 06/11/21 1 0:55 Freq: Status: Active Protocol: Document 06/11/21 10:55 BALA (Rec: 06/11/21 10:58 BALA [id number]) Nutrition Notes Need for Assessment generated from: MD Order,Education Initial or Follow up Brief Note Current Diet NPO (since 06/11 01:36). Height 5 ft 7 in Weight 61.235 kg [place] Body Weight (kg) 67.27 BMI 21.1 Weight change and time frame None reported at admission. Weight Status Appropriate Subjective/Other Information RD consult for Nutrition Education. Pt still on hold, not a candidate for Nutrition Education at the time, will assess feasibility on F/U. Percent of energy/protein needs met: Pt currently on NPO. Current % PO Other Nutrition Intervention Additional Comments Nutrition education will be provided on F/U if feasible. When pertinent, continue monitoring food tolerance, %PO intake of meals, and BM.
[2021-06-13] MEDS ORDERED: D5W/0.45% NACL/KCL 20 MEQ 20 MEQ/1,000 ML BAG IV SCH ×2 (17:00→19:00)
[2021-06-13 18:39] LABS: BUN/Creatinine Ratio 13; Blood Urea Nitrogen 17 mg/dL (9-20); Calcium 8.9 mg/dL (8.4-10.2); Hemolysis Index 2
[2021-06-13] MEDS ORDERED: DEXTROSE 50% IN WATER (25GM) 50 ML SYRINGE IV PRN (18:59)
[2021-06-13] MEDS ORDERED: POTASSIUM CHLORIDE ER 20 MEQ TAB PO ONE (20:00)
[2021-06-13] MEDS: INSULIN LISPRO 100 UNIT/ML SUB-Q SCH (20:39)
[2021-06-13] MEDS ORDERED: INSULIN GLARGINE 100 UNITS/ML SUB-Q SCH (22:00)
[2021-06-13] MEDS: POTASSIUM CHLORIDE ER 20 MEQ TAB PO SCH (23:04)
[2021-06-14] MEDS: LATANOPROST 0.005% OPHTH SOLN 2.5 ML OU SCH (00:02)
[2021-06-14] MEDS: POTASSIUM CHLORIDE ER 20 MEQ TAB PO SCH (02:44)
[2021-06-14 05:30] LABS: BUN/Creatinine Ratio 12; Blood Urea Nitrogen 17 mg/dL (9-20); Calcium 8.3 mg/dL (8.4-10.2); Hemolysis Index 0
[2021-06-14] MEDS: INSULIN LISPRO 100 UNIT/ML SUB-Q SCH ×3 (06:50→14:36)
[2021-06-14] MEDS ORDERED: IPRATROPIUM/ALBUTEROL SULFATE 3 ML AMPUL.NEB IH SCH (08:00)
[2021-06-14] MEDS ORDERED: INSULIN REGULAR, HUMAN 100 UNITS/1 ML IV SCH (08:00)
[2021-06-14] MEDS: SUCRALFATE 1 GM/10 ML ORAL LIQD PO SCH ×2 (09:12→12:28)
[2021-06-14] MEDS: INSULIN NPH, HUMAN 100 UNIT/1 ML SUB-Q SCH ×2 (09:50→14:07)
[2021-06-14] MEDS: MIDODRINE 5 MG TAB PO SCH ×2 (09:50→14:07)
[2021-06-14] MEDS: FOLIC ACID 1 MG TAB PO SCH (11:33)
[2021-06-14] MEDS: CEFEPIME/NS 2 GM/100 ML 2 GM/100 ML BAG IV SCH (11:33)
[2021-06-14] MEDS: HEPARIN 5,000 UNIT/1 ML VIAL SUB-Q SCH (11:33)
[2021-06-14] MEDS: PANTOPRAZOLE 40 MG INJ IV SCH (11:35)
--- NOTE | 2021-06-14 12:09 | Progress Note ---
Assessment and Plan DKA Hyperkalemia Acute kidney injury (CONG) with acute tubular necrosis (ATN) on top of CKD Sepsis due to unknown cause Arthritis High anion gap metabolic acidosis Anemia -CONG resolved -Hyperkalemia is resolved -Renally dose all meds -Avoid Nephrotoxic meds -strict I&O will sign off, patient will be followed as an outpatient upon discharge with labs Subjective Date of service: 06/14/21 Principal diagnosis: CONG Interval history: no overnight events Objective - Vital Signs Vital signs: Vital Signs - 12hr 06/14/21 06/14/21 06/14/21 01:00 02:00 03:00 Temperature Pulse Rate 102 H 81 Respiratory 16 32 H 26 H Rate Blood Pressure 103/59 129/101 119/65 Blood Pressure [Left] O2 Sat by Pulse 96 93 98 Oximetry 06/14/21 06/14/21 06/14/21 04:00 05:00 06:00 Temperature Pulse Rate Respiratory 30 H 19 19 Rate Blood Pressure 121/71 123/63 131/78 Blood Pressure [Left] O2 Sat by Pulse 97 98 99 Oximetry 06/14/21 06/14/21 06/14/21 07:00 08:00 09:00 Temperature 97.0 F L Pulse Rate 99 H Respiratory 17 Rate Blood Pressure 132/82 126/76 133/85 Blood Pressure 126/76 [Left] O2 Sat by Pulse 99 98 96 Oximetry 06/14/21 06/14/21 10:00 11:00 Temperature Pulse Rate Respiratory Rate Blood Pressure 121/72 124/69 Blood Pressure [Left] O2 Sat by Pulse 96 95 Oximetry - Lab 06/12/21 06:41 06/14/21 04:11 Most recent lab results ABG pH 7.022 (7.320-7.450) L 06/10/21 22:33 ABG O2 Saturation 98.0 (0-100) 06/10/21 22:33 Calcium 8.3 mg/dL (8.4-10.2) L 06/14/21 04:11 Phosphorus 6.50 mg/dL (2.5-4.5) H D 06/11/21 10:00 Magnesium 3.20 mg/dL (1.7-2.3) H 06/11/21 02:07 Medications & Allergies - Medications Allergies/Adverse Reactions: Allergies Tetracyclines Allergy (Verified 12/26/16 09:54) Swelling Home Medications: Home Medications Medication Instructions Recorded Confirmed Last Taken Type AtorvaSTATin [Lipitor] 40 mg PO QHS 06/13/21 06/13/21 Unknown History Gabapentin 300 mg PO TID 06/13/21 06/13/21 Unknown History Insulin Aspart (Nf) [NovoLOG 100 7 unit SQ DAILY 06/13/21 06/13/21 Unknown History UNITS/ML VIAL] Insulin Detemir [Levemir VIAL] 15 unit SQ QHS 06/13/21 06/13/21 Unknown History Latanoprost 0.005% [Xalatan 0.005%] 1 drop OP QPM 06/13/21 06/13/21 Unknown History Lisinopril [Zestril] 5 mg PO DAILY 06/13/21 06/13/21 Unknown History Metoprolol [Lopressor TAB] 50 mg PO DAILY 06/13/21 06/13/21 Unknown History Active Medications: Generic Name Dose Route Start Last Admin Trade Name Freq PRN Reason Stop Dose Admin Acetaminophen 650 mg 06/11/21 01:35 Acetaminophen 325 Mg Tab PO Q4H PRN Pain MILD(1-3)/Fever >100.5/JAVIER Albuterol 2.5 mg 06/11/21 01:35 Albuterol 2.5 Mg/3 Ml Nebu IH Q4HRT PRN Shortness Of Breath Albuterol/Ipratropium 1 ampul 06/14/21 08:00 Ipratropium/Albuterol Sulfate 3 Ml Ampul.Neb IH TIDRT ESTHER Cyclobenzaprine HCl 10 mg 06/11/21 01:51 06/13/21 10:28 Cyclobenzaprine 10 Mg Tab PO 10 mg TID PRN Administration Muscle Spasm Dextrose 50 ml 06/13/21 18:59 Dextrose 50% In Water (25gm) 50 Ml Syringe IV Q30MIN PRN Hypoglycemia Protocol Folic Acid 1 mg 06/11/21 10:00 06/14/21 11:33 Folic Acid 1 Mg Tab PO 1 mg DAILY ESTHER Administration Heparin Sodium (Porcine) 5,000 unit 06/11/21 10:00 06/14/21 11:33 Heparin 5,000 Unit/1 Ml Vial SUB-Q 5,000 unit Q12HR ESTHER Administration Hydromorphone HCl 0.5 mg 06/11/21 01:35 06/13/21 20:40 Hydromorphone 1 Mg/1 Ml Inj IV 0.5 mg Q3H PRN Administration Pain , Severe (7-10) Cefepime HCl 2 gm in 100 mls @ 200 mls/hr 06/11/21 10:00 06/14/21 11:33 Cefepime/Ns 2 Gm/100 Ml IV 06/15/21 10:29 200 mls/hr Q24H [facility] Administration Protocol Potassium Chloride/Dextrose/Sod Cl 20 meq in 1,000 mls @ 125 mls/hr 06/13/21 19:00 D5w/0.45% Nacl/Kcl 20 Meq IV DIRECT [facility] Insulin Glargine 15 units 06/13/21 22:00 06/13/21 23:27 Insulin Glargine 100 Units/Ml SUB-Q Not Given QHS [facility] Insulin Human Lispro 0 unit 06/13/21 20:00 06/14/21 06:50 Insulin Lispro 100 Unit/Ml SUB-Q 8 unit Q6HR [facility] Administration Protocol Insulin Human NPH 7 unit 06/14/21 07:30 06/14/21 09:50 Insulin Nph, Human 100 Unit/1 Ml SUB-Q 7 unit AC [facility] Administration Latanoprost 1 drops 06/11/21 22:00 06/14/21 00:02 Latanoprost 0.005% Ophth Soln 2.5 Ml OU Not Given QHS [facility] Metoclopramide HCl 5 mg 06/11/21 01:51 Metoclopramide 10 Mg Tab PO Q6H PRN Nausea And Vomiting Midodrine 10 mg 06/11/21 12:00 06/14/21 09:50 Midodrine 5 Mg Tab PO 10 mg TID@0800,1200,1600 [facility] Administration Morphine Sulfate 2 mg 06/11/21 01:35 06/13/21 16:03 Morphine 2 Mg/1 Ml Inj IV 2 mg Q4H PRN Administration Pain, Moderate (4-6) Ondansetron HCl 4 mg 06/11/21 01:35 Ondansetron 4 Mg/2 Ml Inj IV Q8H PRN Nausea And Vomiting Pantoprazole Sodium 40 mg 06/11/21 10:00 06/14/21 11:35 Pantoprazole 40 Mg Inj IV 40 mg QDAY [facility] Administration Sodium Chloride 10 ml 06/11/21 10:00 06/14/21 11:35 Sodium Chloride 0.9% 10 Ml Flush Syringe IV 10 ml BID ESTHER Administration Sodium Chloride 10 ml 06/11/21 01:35 Sodium Chloride 0.9% 10 Ml Flush Syringe IV PRN PRN LINE FLUSH Sucralfate 1 gm 06/11/21 07:30 06/14/21 09:12 Sucralfate 1 Gm/10 Ml Oral Liqd PO 1 gm ACHS ESTHER Administration
[2021-06-14] MEDS ORDERED: DEXTROSE 50% IN WATER (25GM) 50 ML SYRINGE IV ONE (12:17)
--- NOTE | 2021-06-14 12:18 | Progress Note ---
Assessment and Plan Assessment and plan: #Diabetic Ketoacidosis in Type 1 Diabetic-resolved B , A, Bicarb 4, pH: , LA: 13.10 on admission Fluid management and insulin gtt per DKA protocol serial BMP. Trend BG diabetic education. CCM consulted #Severe Metabolic acidosis-resolved secondary to DKA Bicarb 4 on admission, VBG pH: 7.0 started on bicarbonate gtt Monitor bicarb on serial bmp #Hyperkalemia-resolved Patient already on IV fluid, insulin drip as per protocol and D50. Should correct as DKA improves. bicarb drip initiated. Monitor K on serial BMP #Hypernatremia-resolved correction with IVF and DKA protocol. #Acute kidney injury (CONG) with acute tubular necrosis (ATN) CR: 3.6, BUN : 59, had CKD3 based on prior records Avoid nephrotoxic agents Renally dose medication. IV fluid half-normal saline at the rate of 150 cc/h. Ordered lawrence for accurate I/O's. consult nephrology: recommends urine studies, renal US. No KNOT PICKER CLOTH at this point. Albumin for low BP Follow kidney function on renal profile #Macrocytic Anemia Hgb: 8.9 Epogen 20,000 X 1 SQ for ACD, check Iron panel Check PTH for signs of 2HPT signalling CKD #Sepsis POA (improving) Unclear source, elevated WBC, LA Empiric Cefepime 1 g IV every 8 hours and vancomycin 1 g IV every 12 hours initiated on admission blood culture and sputum culture ordered procalcitonin elevated (8.7), continue abx. Low BP, could be intravascular depletion from DKA vs Sepsis. Now improved COVID 19 PCR ordered. #Type 1 Diabetes with Hyperglycemia home regimen: Levemir 15 units subq daily and novolin on SSI, he is compliant. pending hemoglobin a1c decreasing insulin to Levemir 10U daily and moderate SSI in the setting of recurrent hypoglycemia. continue to monitor #Arthritis Stable. Tylenol 650 mg p.o. every 6 hours as needed. #Advanced care planning -Disease education conducted, care plan discussed, diagnoses discussed, prognosis discussed, and patient acknowledges understanding with care plan -Time: +30 min Disposition Plan: Continue medical management Total Time Spent with Patient (Minutes): 45 min History Interval history: No acute event overnight. Hospitalist Physical - Constitutional Vitals: Temp Pulse Resp BP Pulse Ox 97.0 F L 99 H 17 124/69 95 06/14/21 08:00 06/14/21 08:00 06/14/21 08:00 06/14/21 11:00 06/14/21 11:00 General appearance: Present: no acute distress, cachectic - EENT Eyes: Present: PERRL, EOM intact ENT: hearing intact, clear oral mucosa, dentition normal - Neck Neck: Present: supple, normal ROM - Respiratory Respiratory effort: normal Respiratory: bilateral: CTA - Cardiovascular Rhythm: regular Heart Sounds: Present: S1 & S2 - Extremities Extremities: no ischemia, pulses intact, pulses symmetrical, No edema, normal temperature, normal color, Full ROM Peripheral Pulses: within normal limits - Abdominal General gastrointestinal: soft, non-tender, non-distended, normal bowel sounds - Integumentary Integumentary: Present: clear, warm, dry - Psychiatric Psychiatric: appropriate mood/affect, intact judgment & insight, cooperative - Neurologic Neurologic: CNII-XII intact, moves all extremities - Allied Health Allied health notes reviewed: nursing HEART Score - HEART Score Troponin: Troponin T < 0.010 ng/mL (0.00-0.029) 06/10/21 22:57 Results - Labs CBC & Chem 7: 06/12/21 06:41 06/14/21 04:11 Labs: Laboratory Last Values WBC 14.3 K/mm3 (4.5-11.0) H 06/12/21 06:41 RBC 2.48 M/mm3 (3.65-5.03) L 06/12/21 06:41 Hgb 8.2 gm/dl (11.8-15.2) L 06/12/21 06:41 Hct 24.8 % (35.5-45.6) L D 06/12/21 06:41 MCV 100 fl (84-94) H 06/12/21 06:41 MCH 33 pg (28-32) H 06/12/21 06:41 MCHC 33 % (32-34) 06/12/21 06:41 RDW 15.6 % (13.2-15.2) H 06/12/21 06:41 Plt Count 129 K/mm3 (140-440) L 06/12/21 06:41 [place] % (Auto) Manager Language 06/12/21 06:41 Add Manual Diff Complete 06/12/21 06:41 Total Counted 100 06/12/21 06:41 Seg Neutrophils % Manager Language 06/12/21 06:41 Seg Neuts % (Manual) 79.0 % (40.0-70.0) H 06/12/21 06:41 Band Neutrophils % 15.0 % 06/12/21 06:41 Lymphocytes % (Manual) 6.0 % (13.4-35.0) L 06/12/21 06:41 Reactive Lymphs % (Man) 0 % 06/12/21 06:41 Monocytes % (Manual) 0 % (0.0-7.3) 06/12/21 06:41 Eosinophils % (Manual) 0 % (0.0-4.3) 06/12/21 06:41 Basophils % (Manual) 0 % (0.0-1.8) 06/12/21 06:41 Metamyelocytes % 0 % 06/12/21 06:41 Myelocytes % 0 % 06/12/21 06:41 Promyelocytes % 0 % 06/12/21 06:41 Blast Cells % 0 % 06/12/21 06:41 Nucleated RBC % 2.0 % (0.0-0.9) H 06/12/21 06:41 Seg Neutrophils # Man 11.3 K/mm3 (1.8-7.7) H 06/12/21 06:41 Band Neutrophils # 2.1 K/mm3 06/12/21 06:41 Lymphocytes # (Manual) 0.9 K/mm3 (1.2-5.4) L 06/12/21 06:41 Abs React Lymphs (Man) 0.0 K/mm3 06/12/21 06:41 Monocytes # (Manual) 0.0 K/mm3 (0.0-0.8) 06/12/21 06:41 Eosinophils # (Manual) 0.0 K/mm3 (0.0-0.4) 06/12/21 06:41 Basophils # (Manual) 0.0 K/mm3 (0.0-0.1) 06/12/21 06:41 Metamyelocytes # 0.0 K/mm3 06/12/21 06:41 Myelocytes # 0.0 K/mm3 06/12/21 06:41 Promyelocytes # 0.0 K/mm3 06/12/21 06:41 Blast Cells # 0.0 K/mm3 06/12/21 06:41 WBC Morphology Not Reportable 06/12/21 06:41 Hypersegmented Neuts Not Reportable 06/12/21 06:41 Hyposegmented Neuts Not Reportable 06/12/21 06:41 Hypogranular Neuts Not Reportable 06/12/21 06:41 Smudge Cells Not Reportable 06/12/21 06:41 Toxic Granulation Not Reportable 06/12/21 06:41 Toxic Vacuolation Not Reportable 06/12/21 06:41 Dohle Bodies Not Reportable 06/12/21 06:41 Pelger-Huet Anomaly Not Reportable 06/12/21 06:41 Chinyere Rods Not Reportable 06/12/21 06:41 Platelet Estimate Consistent w auto 06/12/21 06:41 Clumped Platelets Not Reportable 06/12/21 06:41 Plt Clumps, EDTA Not Reportable 06/12/21 06:41 Large Platelets Not Reportable 06/12/21 06:41 Giant Platelets Not Reportable 06/12/21 06:41 Platelet Satelliting Not Reportable 06/12/21 06:41 Plt Morphology Comment Not Reportable 06/12/21 06:41 RBC Morphology Not Reportable 06/12/21 06:41 Dimorphic RBCs Not Reportable 06/12/21 06:41 Polychromasia Not Reportable 06/12/21 06:41 Hypochromasia 1+ 06/12/21 06:41 Poikilocytosis Not Reportable 06/12/21 06:41 Anisocytosis Not Reportable 06/12/21 06:41 Microcytosis Not Reportable 06/12/21 06:41 Macrocytosis 1+ 06/12/21 06:41 Spherocytes Not Reportable 06/12/21 06:41 Pappenheimer Bodies Not Reportable 06/12/21 06:41 Sickle Cells Not Reportable 06/12/21 06:41 Target Cells Not Reportable 06/12/21 06:41 Tear Drop Cells Not Reportable 06/12/21 06:41 Ovalocytes Not Reportable 06/12/21 06:41 Helmet Cells Not Reportable 06/12/21 06:41 [place]kin Bodies Not Reportable 06/12/21 06:41 [place] Rings Not Reportable 06/12/21 06:41 Fredrick Cells Not Reportable 06/12/21 06:41 Bite Cells Not Reportable 06/12/21 06:41 Crenated Cell Not Reportable 06/12/21 06:41 Elliptocytes Not Reportable 06/12/21 06:41 Acanthocytes (Spur) Not Reportable 06/12/21 06:41 Rouleaux Not Reportable 06/12/21 06:41 Hemoglobin C Crystals Not Reportable 06/12/21 06:41 Schistocytes Not Reportable 06/12/21 06:41 Malaria parasites Not Reportable 06/12/21 06:41 Jerry Bodies Not Reportable 06/12/21 06:41 Hem Pathologist Commnt No 06/12/21 06:41 PT 14.4 Sec. (12.2-14.9) 06/10/21 22:57 INR 1.01 (0.87-1.13) 06/10/21 22:57 APTT 29.1 Sec. (24.2-36.6) 06/10/21 22:57 ABG pH 7.022 (7.320-7.450) L 06/10/21 22:33 POC ABG pCO2 14.4 mmHg (32.0-48.0) L 06/10/21 22:33 POC ABG pO2 142.4 mmHg (83-108) H 06/10/21 22:33 POC ABG HCO3 3.7 06/10/21 22:33 ABG O2 Saturation 98.0 (0-100) 06/10/21 22:33 POC ABG Base Excess -25.3 06/10/21 22:33 ABG Hemoglobin 9.3 (12.0-17.5) L 06/10/21 22:33 ABG Oxyhemoglobin 97.6 (94-98) 06/10/21 22:33 ABG Methemoglobin 0.1 (0.0-1.5) 06/10/21 22:33 ABG Sodium 133.2 mmol/L (136.0-145.0) L 06/10/21 22:33 ABG Potassium 5.5 mmol/L (3.40-4.50) H 06/10/21 22:33 ABG Chloride 83.0 mmol/L (98-107) L 06/10/21 22:33 Carboxyhemoglobin 0.3 (0.5-1.5) L 06/10/21 22:33 FiO2 % 21.0 06/10/21 22:33 Sodium 142 mmol/L (137-145) 06/14/21 04:11 Potassium 4.5 mmol/L (3.6-5.0) D 06/14/21 04:11 Chloride 104.0 mmol/L (98-107) 06/14/21 04:11 Carbon Dioxide 24 mmol/L (22-30) 06/14/21 04:11 Anion Gap 19 mmol/L 06/14/21 04:11 BUN 17 mg/dL (9-20) 06/14/21 04:11 Creatinine 1.4 mg/dL (0.8-1.3) H 06/14/21 04:11 Estimated GFR > 60 ml/min 06/14/21 04:11 BUN/Creatinine Ratio 12 % 06/14/21 04:11 Glucose 385 mg/dL (75-100) H 06/14/21 04:11 POC Glucose < 10 mg/dL (70-105) L 06/14/21 11:46 Lactic Acid 14.20 mmol/L (0.7-2.0) H* 06/11/21 10:00 Calcium 8.3 mg/dL (8.4-10.2) L 06/14/21 04:11 Phosphorus 6.50 mg/dL (2.5-4.5) H D 06/11/21 10:00 Magnesium 3.20 mg/dL (1.7-2.3) H 06/11/21 02:07 Iron 17 ug/dL (49-181) L 06/11/21 10:00 TIBC 117 mcg/dL (250-450) L 06/11/21 10:00 Total Bilirubin 0.60 mg/dL (0.1-1.2) 06/12/21 06:41 Direct Bilirubin < 0.2 mg/dL (0-0.2) 06/10/21 22:57 Indirect Bilirubin 0.1 mg/dL 06/10/21 22:57 AST 106 units/L (5-40) H 06/12/21 06:41 ALT 46 units/L (7-56) 06/12/21 06:41 Alkaline Phosphatase 89 units/L (35-129) 06/12/21 06:41 Ammonia 50.0 umol/L (25-60) 06/10/21 22:57 Total Creatine Kinase 603 units/L (55-170) H 06/11/21 10:00 Troponin T < 0.010 ng/mL (0.00-0.029) 06/10/21 22:57 Total Protein 5.3 g/dL (6.3-8.2) L 06/12/21 06:41 Albumin 3.7 g/dL (3.9-5) L 06/12/21 06:41 Albumin/Globulin Ratio 2.3 % 06/12/21 06:41 Procalcitonin 8.71 ng/mL (<0.15) 06/11/21 10:00 PTH Intact 110.2 pg/mL (15-65) H 06/11/21 Unknown Arterial Blood Ionized Calcium 4.9 mg/dL (4.6-5.3) 06/10/21 22:33 Urine Color Straw (Yellow) 06/11/21 07:48 Urine Turbidity Clear (Clear) 06/11/21 07:48 Urine pH 5.0 (5.0-7.0) 06/11/21 07:48 Ur Specific [place] 1.018 (1.003-1.030) 06/11/21 07:48 Urine Protein 30 mg/dl mg/dL (Negative) 06/11/21 07:48 Urine Glucose (UA) >=500 mg/dL (Negative) 06/11/21 07:48 Urine Ketones 20 mg/dL (Negative) 06/11/21 07:48 Urine Blood Mod (Negative) 06/11/21 07:48 Urine Nitrite Neg (Negative) 06/11/21 07:48 Urine Bilirubin Neg (Negative) 06/11/21 07:48 Urine Urobilinogen < 2.0 mg/dL (<2.0) 06/11/21 07:48 Ur Leukocyte Esterase Neg (Negative) 06/11/21 07:48 Urine WBC (Auto) 1.0 /HPF (0.0-6.0) 06/11/21 07:48 Urine RBC (Auto) 14.0 /HPF (0.0-6.0) 06/11/21 07:48 U Epithel Cells (Auto) 2.0 /HPF (0-13.0) 06/11/21 07:48 Urine Bacteria (Auto) 2+ /HPF (Negative) 06/11/21 07:48 Amorphous Crystals Few 06/11/21 07:48 Hyaline Casts 2 /LPF 06/11/21 07:48 Urine Mucus Few /HPF 06/11/21 07:48 Random Vancomycin 8.8 ug/mL (0-40.0) 06/12/21 06:41 Urine Opiates Screen Negative 06/11/21 07:48 Urine Methadone Screen Negative 06/11/21 07:48 Ur Barbiturates Screen Negative 06/11/21 07:48 Ur Phencyclidine Scrn Negative 06/11/21 07:48 Ur Amphetamines Screen Negative 06/11/21 07:48 U Benzodiazepines Scrn Negative 06/11/21 07:48 Urine Cocaine Screen Negative 06/11/21 07:48 U Marijuana (THC) Screen Negative 06/11/21 07:48 Drugs of Abuse Note Disclamer 06/11/21 07:48 Plasma/Serum Alcohol < 0.01 % (0-0.07) 06/10/21 22:57 Coronavirus (PCR) Negative (Negative) 06/13/21 09:36 Microbiology: Microbiology 06/10/21 23:38 Peripheral/Venous Blood Culture - Preliminary NO GROWTH AFTER 72 HOURS 06/10/21 22:57 Peripheral/Venous Blood Culture - Preliminary NO GROWTH AFTER 72 HOURS Active Medications - Current Medications Current Medications: Generic Name Dose Route Start Last Admin Trade Name Freq PRN Reason Stop Dose Admin Acetaminophen 650 mg 06/11/21 01:35 Acetaminophen 325 Mg Tab PO Q4H PRN Pain MILD(1-3)/Fever >100.5/JAVIER Albuterol 2.5 mg 06/11/21 01:35 Albuterol 2.5 Mg/3 Ml Nebu IH Q4HRT PRN Shortness Of Breath Albuterol/Ipratropium 1 ampul 06/14/21 08:00 Ipratropium/Albuterol Sulfate 3 Ml Ampul.Neb IH TIDRT ESTHER Cyclobenzaprine HCl 10 mg 06/11/21 01:51 06/13/21 10:28 Cyclobenzaprine 10 Mg Tab PO 10 mg TID PRN Administration Muscle Spasm Dextrose 50 ml 06/13/21 18:59 Dextrose 50% In Water (25gm) 50 Ml Syringe IV Q30MIN PRN Hypoglycemia Protocol Folic Acid 1 mg 06/11/21 10:00 06/14/21 11:33 Folic Acid 1 Mg Tab PO 1 mg DAILY [facility] Administration Heparin Sodium (Porcine) 5,000 unit 06/11/21 10:00 06/14/21 11:33 Heparin 5,000 Unit/1 Ml Vial SUB-Q 5,000 unit Q12HR ESTHER Administration Hydromorphone HCl 0.5 mg 06/11/21 01:35 06/13/21 20:40 Hydromorphone 1 Mg/1 Ml Inj IV 0.5 mg Q3H PRN Administration Pain , Severe (7-10) Cefepime HCl 2 gm in 100 mls @ 200 mls/hr 06/11/21 10:00 06/14/21 11:33 Cefepime/Ns 2 Gm/100 Ml IV 06/15/21 10:29 200 mls/hr Q24H ESTHER Administration Protocol Potassium Chloride/Dextrose/Sod Cl 20 meq in 1,000 mls @ 125 mls/hr 06/13/21 19:00 D5w/0.45% Nacl/Kcl 20 Meq IV DIRECT [facility] Insulin Glargine 15 units 06/13/21 22:00 06/13/21 23:27 Insulin Glargine 100 Units/Ml SUB-Q Not Given QHS [facility] Insulin Human Lispro 0 unit 06/13/21 20:00 06/14/21 06:50 Insulin Lispro 100 Unit/Ml SUB-Q 8 unit Q6HR [facility] Administration Protocol Insulin Human NPH 7 unit 06/14/21 07:30 06/14/21 09:50 Insulin Nph, Human 100 Unit/1 Ml SUB-Q 7 unit AC [facility] Administration Latanoprost 1 drops 06/11/21 22:00 06/14/21 00:02 Latanoprost 0.005% Ophth Soln 2.5 Ml OU Not Given QHS [facility] Metoclopramide HCl 5 mg 06/11/21 01:51 Metoclopramide 10 Mg Tab PO Q6H PRN Nausea And Vomiting Midodrine 10 mg 06/11/21 12:00 06/14/21 09:50 Midodrine 5 Mg Tab PO 10 mg TID@0800,1200,1600 [facility] Administration Morphine Sulfate 2 mg 06/11/21 01:35 06/13/21 16:03 Morphine 2 Mg/1 Ml Inj IV 2 mg Q4H PRN Administration Pain, Moderate (4-6) Ondansetron HCl 4 mg 06/11/21 01:35 Ondansetron 4 Mg/2 Ml Inj IV Q8H PRN Nausea And Vomiting Pantoprazole Sodium 40 mg 06/11/21 10:00 06/14/21 11:35 Pantoprazole 40 Mg Inj IV 40 mg QDAY ESTHER Administration Sodium Chloride 10 ml 06/11/21 10:00 06/14/21 11:35 Sodium Chloride 0.9% 10 Ml Flush Syringe IV 10 ml BID ESTHER Administration Sodium Chloride 10 ml 06/11/21 01:35 Sodium Chloride 0.9% 10 Ml Flush Syringe IV PRN PRN LINE FLUSH Sucralfate 1 gm 06/11/21 07:30 06/14/21 09:12 Sucralfate 1 Gm/10 Ml Oral Liqd PO 1 gm ACHS ESTHER Administration Nutrition/Malnutrition Assess - Dietary Evaluation Nutrition/Malnutrition Findings: Nutrition Notes Start: 06/11/21 10:55 Freq: Status: Active Protocol: Document 06/14/21 09:22 [facility] (Rec: 06/14/21 09:23 [facility] [id number]) Nutrition Notes Initial or Follow up Brief Note Subjective/Other Information Previous assessment did not provide a f/u date. Nutrition Intervention Follow-Up By: 06/16/21 Additional Comments F/U: transfer to medical floor , need for diet education
[2021-06-14] MEDS ORDERED: DEXTROSE 50% IN WATER (25GM) 50 ML SYRINGE IV PRN (12:19)
[2021-06-14] MEDS ORDERED: INSULIN GLARGINE 100 UNITS/ML SUB-Q SCH (12:20)
[2021-06-14 16:19] VITALS: BP 122/69
[2021-06-14] MEDS ORDERED: INSULIN LISPRO 100 UNIT/ML SUB-Q SCH (16:30)
== END 2021-06-14 16:20 | disposition left against medical advice (07) | DRG 871 ==
LOC: ED 21:49 → CC1 06-11 00:33 → 3A 06-13 19:04
PROVIDERS: ADMIT Hospitalist; ATTEND Student in an Organized Health Care Education/Training Program
DX: A41.9 Sepsis, unspecified organism (principal); N17.0 Acute kidney failure with tubular necrosis; E10.10 Type 1 diabetes mellitus with ketoacidosis without coma; E87.0 Hyperosmolality and hypernatremia; E87.5 Hyperkalemia; E10.65 Type 1 diabetes mellitus with hyperglycemia; M19.90 Unspecified osteoarthritis, unspecified site; Z53.29 Procedure and treatment not carried out because of patient's decision for other reasons; M17.0 Bilateral primary osteoarthritis of knee; M19.022 Primary osteoarthritis, left elbow; M19.021 Primary osteoarthritis, right elbow; M19.011 Primary osteoarthritis, right shoulder; F17.200 Nicotine dependence, unspecified, uncomplicated; D53.9 Nutritional anemia, unspecified; E10.22 Type 1 diabetes mellitus with diabetic chronic kidney disease; N18.9 Chronic kidney disease, unspecified; Z20.822 Contact with and (suspected) exposure to COVID-19; Z88.8 Allergy status to other drugs, medicaments and biological substances; Z79.899 Other long term (current) drug therapy
CPT/HCPCS: 36415; 70450; 71045; 76770; 80048; 80053; 80076; 80202; 80307; 80320; 81001; 82140; 82550; 82805; 82962; 83036; 83550; 83735; 83970; 84100; 84145; 84484; 85007; 85025; 85610; 85730; 87040; 93005; 94640; 94644; 94760; G0378; J2354; J3480; J3490; J7070; Q0162; Q9967; C9113; G0480; J0610; J0692; J1170; J1644; J1815; J2270; J2543; J3370; J7030; J7050; P9047; U0003